=== PATIENT | male | born 1970 | race Caucasian/White ===

== ENCOUNTER → 2017-05-13 | Outpatient (CLI) | payer OTHER ==
[~2017-05-13] MED LIST: ARMOUR; ASPI-983 PO; HYDR25TA4 PO; LEVO750T9 PO; NF-TELM20T PO; PRILOSEC; THYR120T2 PO; VLS80C
--- NOTE | 2017-05-13 16:37 | Diagnostic Imaging Report ---
PA view of the chest. INDICATION: Shortness of breath. FINDINGS: There is a mild bilateral perihilar atelectasis. There is a right basilar opacity which may relate to atelectasis and a small right effusion. The heart size is mildly enlarged. The mediastinum and ajit appear unremarkable. IMPRESSION: Mild cardiomegaly. There is a right basilar opacity favored to relate to atelectasis and a small pleural effusion. Dictated by: Dictated on workstation # [id number]
== END ==
LOC: RAD 15:18
DX: R07.9 Chest pain, unspecified (principal); R92.8 Other abnormal and inconclusive findings on diagnostic imaging of breast; I10 Essential (primary) hypertension; E03.9 Hypothyroidism, unspecified; K21.9 Gastro-esophageal reflux disease without esophagitis; R47.02 Dysphasia; R60.9 Edema, unspecified
CPT/HCPCS: 71010

== ENCOUNTER 2017-06-14 10:55 | Day surgery (SDC) | payer OTHER ==
[2017-06-14] VITALS (7 sets, daily range): BP systolic 102–108; BP diastolic 66–91
[~2017-06-14] VITALS: Ht 177.8 cm; Wt 94.8 kg
[~2017-06-14 10:55] MED LIST changes: +AMIO200T2 PO; +APIX5TAB PO; +ATOR10TA66 PO; +FURO-124 PO; +LISI10TA2 PO; +METO50TA15 PO; +MULT-35 PO; +NS IV 1000 ML 1,000 ML ONE; +OMEP20CA12 PO; +POTA20TA8 PO; +POTA99TA21 PO; +TELM40TA3 PO; +TESTOSTERONE TROCHE SL
[2017-06-14] MEDS ORDERED: NS IV 1000 ML 1,000 ML IV SCH (11:07)
[2017-06-14] MEDS ORDERED: METO50TA15 PO (11:21)
[2017-06-14] MEDS ORDERED: AMIO200T2 PO (11:28)
[2017-06-14 11:54] LABS: ALANINE AMINOTRANSFERASE 47 U/L (0-55); ALBUMIN 4.8 GM/DL (3.2-4.5); ANION GAP 11 MMOL/L (5-14); ASPARTATE AMINO TRANSFERASE 24 U/L (5-34); BILIRUBIN,TOTAL 3.4 MG/DL (0.1-1.0); BLOOD UREA NITROGEN 15 MG/DL (7-18); BUN/CREATININE RATIO 17; CALCIUM 9.8 MG/DL (8.5-10.1); CARBON DIOXIDE 29 MMOL/L (21-32); CHLORIDE 100 MMOL/L (98-107); CREATININE SERUM 0.87 MG/DL (0.60-1.30); GFR ESTIMATED > 60; GLUCOSE 96 MG/DL (70-105); POTASSIUM 4.3 MMOL/L (3.6-5.0); SODIUM 140 MMOL/L (135-145); TOTAL PROTEIN 7.9 GM/DL (6.4-8.2)
[2017-06-14] MEDS ORDERED: proPOfol 200 MG/20 ML (DIPRIVAN) VIAL IV ONE (11:55)
[2017-06-14] MEDS ORDERED: MIDAZOLAM 2 MG/2 ML (VERSED) VIAL ONE (11:55)
[2017-06-14] MEDS ORDERED: fentaNYL INJECTION 100 MCG/2 ML AMP ONE (11:55)
--- NOTE | 2017-06-14 12:41 | Cardiac Procedure Note-CS/ASA ---
Pre-Procedure Note Pre-Op Procedure Note H&P Reviewed The H&P was reviewed, patient examined and no changes noted. Date H&P Reviewed: Jun 14, 2017 Time H&P Reviewed: 12:41 Conscious Sedation Pre-Proced Time Reviewed: 12:41 ASA Class: 3 Airway Mallampati Classification: ([place] appropriate class) I. II. III, IV Lungs Heart ASA score ASA 1: a normal healthy patient ASA 2: a patient with a mild systemic disease (mid diabetes, controlled hypertension, obesity ASA 3: a patient with a severe systemic disease that limits activity (angina , COPD, prior Myocardial infarction) ASA 4: a patient with an incapacitating disease that is a constant threat to life (CHF, renal failure) ASA 5: a moribund patient not expected to survive 24 hrs. (ruptured aneurysm) ASA 6: a declared brain patient whose organs are being harvested. For emergent operations, add the letter E after the classification Grade 1 Sedation Plan: Analgesia, Amnesia, Plan communicated to team members, Discussed options with patient/fam, Discussed risks with patient/fam Note The patient is an appropriate candidate to undergo the planned procedure, sedation, and anesthesia. The patient immediately re-assessed prior to indication. Clay TRUJILLO MD Jun 14, 2017 12:41 pm
--- NOTE | 2017-06-14 12:57 | Cardiology Post Procedure Note ---
Post-Procedure Note Physician (s)/Mandarin Chinese Teacher (s) Physician Clay TRUJILLO MD Pre-Procedure Diagnosis Pre-Procedure Diagnosis: new onset cardiomyopathy, atrial fibrillation Post-Procedure Note Procedure Start Date: Jun 14, 2017 Procedure Start Time: 12:56 Name of Procedure: Direct Electrical External Cardioversion Findings/Procedure Note First shock unsuccessful. Second 200J shock successful in converting to sinus rhythm. Anesthesia Type: Conscious Sedation Estimated blood loss (mL): 0 Contrast Amount: 0 Post-Procedure Diagnosis Post-operative diagnosis: Successful cardioversion to sinus rhythm Clay TRUJILLO MD Jun 14, 2017 12:57 pm
--- NOTE | 2017-06-14 13:00 | Progress Note-Standard ---
Standard Progress Note Progress Notes/Assess & Plan Time Seen by Provider: 13:00 Final Diagnosis Consulted for sedation during cardioversion per Dr. Kirby. History obtained, monitors and supplies at bedside. Versed 2 mg IV, Propofol 40 mg IV, buddy well VSS. Report to RN care assumed. PIERRE DIAZ CRNA Jun 14, 2017 13:00
--- NOTE | 2017-06-14 23:07 | OPERATIVE REPORT ---
DATE OF SERVICE: 06/14/2017 DIRECT EXTERNAL CARDIOVERSION INDICATION: Atrial fibrillation with rapid ventricular rate. PREOPERATIVE DIAGNOSIS: Atrial fibrillation with rapid ventricular rate. POSTOPERATIVE DIAGNOSIS: Sinus rhythm. HISTORYOF PRESENT ILLNESS: The patient is a 46-year-old gentleman with new onset cardiomyopathy. He was found to be in atrial fibrillation with rapid ventricular rate. Two previous cardioversions were done, which converted to sinus rhythm for only a few hours before he went back into atrial fibrillation. He was started on amiodarone. He has been taking amiodarone for the last 7 to 10 days. Repeat cardioversion was recommended on p.o. therapy with amiodarone. PROCEDURE IN DETAIL: The patient was brought to the [facility] after informed consent was taken. All the risks and complications were explained in detail including the risk of stroke. The first shock, which was a 200-joule synchronized did not convert the patient to sinus rhythm. The second shock of 200-joule synchronized converted the patient to sinus rhythm. Propofol was given by anesthesia services. The patient tolerated procedure well, did not have any complication. IMPRESSION AND CONCLUSION: 1. Successful cardioversion to sinus rhythm. 2. Continue amiodarone and Eliquis therapy. 3. The patient may be a candidate for atrial fibrillation ablation in the near future. Job ID: [id number] DocumentID: [id number] Dictated Date: 06/14/2017 12:59:56 General Duty Nurse Date: 06/14/2017 22:35:01 Dictated By: STANISLAV TRUJILLO MD
== END 2017-06-14 14:16 | disposition home or self-care (01) ==
LOC: CATH 10:55
PROVIDERS: ATTEND Internal Medicine Interventional Cardiology
DX: I48.0 Paroxysmal atrial fibrillation (principal); I42.0 Dilated cardiomyopathy; I10 Essential (primary) hypertension; F17.210 Nicotine dependence, cigarettes, uncomplicated; Z82.49 Family history of ischemic heart disease and other diseases of the circulatory system; Z79.01 Long term (current) use of anticoagulants
CPT/HCPCS: 36415; 80053; 87081; 92960; 93005

== ENCOUNTER → 2017-09-08 | Outpatient (CLI) | payer OTHER ==
[~2017-09-08] MED LIST changes: -NS IV 1000 ML 1,000 ML ONE
== END ==
LOC: CARD 08:44
PROVIDERS: ATTEND Internal Medicine Interventional Cardiology
DX: I48.91 Unspecified atrial fibrillation (principal); E78.5 Hyperlipidemia, unspecified; I42.0 Dilated cardiomyopathy; E66.9 Obesity, unspecified
CPT/HCPCS: 93306

== ENCOUNTER → 2017-09-30 | Day surgery (SDC) | payer OTHER ==
[~2017-09-30] VITALS: Ht 177.8 cm; Wt 96.6 kg
[~2017-09-30] MED LIST changes: +BACITRACIN INJECTION 50,000 UNIT, SODIUM CHLORIDE 0.9% IRRIGATIO 500 ML IR ONE; +CLIN300C11 PO; +DIGO250T PO; +HEParin (CATH LAB) 0 ML IV ONE; +METO100T12 PO; +NS (IVPB) 250 ML ONE; +NS IV 1000 ML 1,000 ML IV ONE; +OMEP20TA7 PO; +VANCOMYCIN 1000 MG/VIAL ONE; +VANCOMYCIN INJECTION 1,000 MG in NS (IVPB) 250 ML IV ONE
--- OUTSIDE RECORDS SUMMARY | 2017-09-30 08:22 | XMS REPORT | Continuity of Care Document ---
Author Author [facility] Organization [facility] Address Unknown Phone Unavailable Allergies Active Description Code Type Severity Reaction Onset Reported/Identified Relationship to Patient Clinical Status Yes Penicillins [id number] Drug Allergy Unknown "LONG AGO DON'T 09/17/2006 Medications There is no data. Problems Date Dx Coded Attending Type Code Diagnosis Diagnosed By 03/05/2015 ROSARIO COLLADO, IRAJ Gonzalez Ot 401.9 HYPERTENSION NOS 03/05/2015 ROSARIO COLLADO, IRAJ Gonzalez Ot 486 PNEUMONIA, ORGANISM NOS 03/05/2015 ROSARIO COLLADO, IRAJ Gonzalez Ot 786.50 CHEST PAIN NOS 03/05/2015 ROSARIO COLLADO, IRAJ Gonzalez Ot V58.69 OTH MED,LT,CURRENT USE 05/26/2017 ROBERTO ASKEW MD Ot E03.9 HYPOTHYROIDISM, UNSPECIFIED 05/26/2017 ROBERTO ASKEW MD Ot I10 ESSENTIAL (PRIMARY) HYPERTENSION 05/26/2017 ROBERTO ASKEW MD Ot K21.9 GASTRO-ESOPHAGEAL REFLUX DISEASE WITHOUT 05/26/2017 ROBERTO ASKEW MD Ot R07.9 CHEST PAIN, UNSPECIFIED 05/26/2017 ROBERTO ASKEW MD Ot R47.02 DYSPHASIA 05/26/2017 ROBERTO ASKEW MD Ot R60.9 EDEMA, UNSPECIFIED 05/26/2017 ROBERTO ASKEW MD Ot R92.8 OTH ABN AND INCONCLUSIVE FINDINGS ON DX 05/27/2017 ROBERTO ASKEW MD Ot E03.9 HYPOTHYROIDISM, UNSPECIFIED 05/27/2017 ROBERTO ASKEW MD Ot I10 ESSENTIAL (PRIMARY) HYPERTENSION 05/27/2017 ROBERTO ASKEW MD Ot K21.9 GASTRO-ESOPHAGEAL REFLUX DISEASE WITHOUT 05/27/2017 ROBERTO ASKEW MD Ot R07.9 CHEST PAIN, UNSPECIFIED 05/27/2017 ROBERTO ASKEW MD Ot R47.02 DYSPHASIA 05/27/2017 ROBERTO ASKEW MD Ot R60.9 EDEMA, UNSPECIFIED 05/27/2017 ROBERTO ASKEW MD Ot R92.8 OTH ABN AND INCONCLUSIVE FINDINGS ON DX 06/03/2017 ROBERTO ASKEW MD Ot E03.9 HYPOTHYROIDISM, UNSPECIFIED 06/03/2017 ROBERTO ASKEW MD R Ot I10 ESSENTIAL (PRIMARY) HYPERTENSION 06/03/2017 ROBERTO ASKEW MD Ot K21.9 GASTRO-ESOPHAGEAL REFLUX DISEASE WITHOUT 06/03/2017 ROBERTO ASKEW MD Ot R07.9 CHEST PAIN, UNSPECIFIED 06/03/2017 ROBERTO ASKEW MD Ot R47.02 DYSPHASIA 06/03/2017 ROBERTO ASKEW MD Ot R60.9 EDEMA, UNSPECIFIED 06/03/2017 ROBERTO ASKEW MD Ot R92.8 OTH ABN AND INCONCLUSIVE FINDINGS ON DX 06/03/2017 ROBERTO ASKEW MD Ot E03.9 HYPOTHYROIDISM, UNSPECIFIED 06/03/2017 ROBERTO ASKEW MD Ot I10 ESSENTIAL (PRIMARY) HYPERTENSION 06/03/2017 ROBERTO ASKEW MD Ot K21.9 GASTRO-ESOPHAGEAL REFLUX DISEASE WITHOUT 06/03/2017 ROBERTO ASKEW MD Ot R07.9 CHEST PAIN, UNSPECIFIED 06/03/2017 ROBERTO ASKEW MD Ot R47.02 DYSPHASIA 06/03/2017 ROBERTO ASKEW MD Ot R60.9 EDEMA, UNSPECIFIED 06/03/2017 ROBERTO ASKEW MD Ot R92.8 OTH ABN AND INCONCLUSIVE FINDINGS ON DX 06/05/2017 ISAMAR HATFIELD MD Ot E03.9 HYPOTHYROIDISM, UNSPECIFIED 06/05/2017 ISAMAR HATFIELD MD Ot E80.6 OTHER DISORDERS OF BILIRUBIN METABOLISM 06/05/2017 ISAMAR HATFIELD MD Ot F17.210 NICOTINE DEPENDENCE, CIGARETTES, UNCOMPL 06/05/2017 ISAMAR HATFIELD MD Ot I11.0 HYPERTENSIVE HEART DISEASE WITH HEART FA 06/05/2017 ISAMAR HATFIELD MD, Ot I25.10 ATHSCL HEART DISEASE OF [place] CORONARY 06/05/2017 ISAMAR HATFIELD MD Ot I42.9 CARDIOMYOPATHY, UNSPECIFIED 06/05/2017 LIU MD, ISAMAR M Ot I48.91 UNSPECIFIED ATRIAL FIBRILLATION 06/05/2017 ISAMAR HATFIELD MD Ot I50.21 ACUTE SYSTOLIC (CONGESTIVE) HEART FAILUR 06/05/2017 ISAMAR HATFIELD MD Ot K21.9 GASTRO-ESOPHAGEAL REFLUX DISEASE WITHOUT 06/06/2017 ISAMAR HATFIELD MD Ot E03.9 HYPOTHYROIDISM, UNSPECIFIED 06/06/2017 ISAMAR HATFIELD MD Ot E80.6 OTHER DISORDERS OF BILIRUBIN METABOLISM 06/06/2017 ISAMAR HATFIELD MD Ot F17.210 NICOTINE DEPENDENCE, CIGARETTES, UNCOMPL 06/06/2017 ISAMAR HATFIELD MD Ot I11.0 HYPERTENSIVE HEART DISEASE WITH HEART FA 06/06/2017 ISAMAR HATFIELD MD Ot I25.10 ATHSCL HEART DISEASE OF [place] CORONARY 06/06/2017 ISAMAR HATFIELD MD Ot I42.9 CARDIOMYOPATHY, UNSPECIFIED 06/06/2017 ISAMAR HATFIELD MD Ot I48.91 UNSPECIFIED ATRIAL FIBRILLATION 06/06/2017 ISAMAR HATFIELD MD Ot I50.21 ACUTE SYSTOLIC (CONGESTIVE) HEART FAILUR 06/06/2017 ISAMAR HATFIELD MD Ot K21.9 GASTRO-ESOPHAGEAL REFLUX DISEASE WITHOUT 06/06/2017 ISAMAR HATFIELD MD Ot E03.9 HYPOTHYROIDISM, UNSPECIFIED 06/06/2017 ISAMAR HATFIELD MD Ot E78.00 PURE HYPERCHOLESTEROLEMIA, UNSPECIFIED 06/06/2017 ISAMAR HATFIELD MD Ot E80.6 OTHER DISORDERS OF BILIRUBIN METABOLISM 06/06/2017 ISAMAR HATFIELD MD Ot F17.210 NICOTINE DEPENDENCE, CIGARETTES, UNCOMPL 06/06/2017 ISAMAR HATFIELD MD Ot I11.0 HYPERTENSIVE HEART DISEASE WITH HEART FA 06/06/2017 ISAMAR HATFIELD MD Ot I25.10 ATHSCL HEART DISEASE OF [place] CORONARY 06/06/2017 ISAMAR HATFIELD MD Ot I42.9 CARDIOMYOPATHY, UNSPECIFIED 06/06/2017 ISAMAR HATFIELD MD Ot I48.91 UNSPECIFIED ATRIAL FIBRILLATION 06/06/2017 ISAMAR HATFIELD MD Ot I50.21 ACUTE SYSTOLIC (CONGESTIVE) HEART FAILUR 06/06/2017 ISAMAR HATFIELD MD Ot K21.9 GASTRO-ESOPHAGEAL REFLUX DISEASE WITHOUT 06/14/2017 CASSANDRA COLLADO, Clay LANG Ot F17.210 NICOTINE DEPENDENCE, CIGARETTES, UNCOMPL 06/14/2017 Clay TRUJILLO MD Ot I10 ESSENTIAL (PRIMARY) HYPERTENSION 06/14/2017 Clay TRUJILLO MD Ot I42.0 DILATED CARDIOMYOPATHY 06/14/2017 CASSANDRA COLLADO, Clay LANG Ot I48.0 PAROXYSMAL ATRIAL FIBRILLATION 06/14/2017 Clay TRUJILLO MD Ot Z79.01 ASSISTED (CURRENT) USE OF ANTICOAGULANT 06/14/2017 Clay TRUJILLO MD Ot Z82.49 FAMILY HX OF ISCHEM HEART DIS AND OTH DI 06/16/2017 ROBERTO ASKEW MD Ot E03.9 HYPOTHYROIDISM, UNSPECIFIED 06/16/2017 ROBERTO ASKEW MD Ot I10 ESSENTIAL (PRIMARY) HYPERTENSION 06/16/2017 ROBERTO ASKEW MD Ot K21.9 GASTRO-ESOPHAGEAL REFLUX DISEASE WITHOUT 06/16/2017 ROBERTO ASKEW MD R Ot R07.9 CHEST PAIN, UNSPECIFIED 06/16/2017 ROBERTO ASKEW MD Ot R47.02 DYSPHASIA 06/16/2017 ROBERTO ASKEW MD Ot R60.9 EDEMA, UNSPECIFIED 07/05/2017 Clay TRUJILLO MD Ot F17.210 NICOTINE DEPENDENCE, CIGARETTES, UNCOMPL 07/05/2017 Clay TRUJILLO MD Ot I10 ESSENTIAL (PRIMARY) HYPERTENSION 07/05/2017 Clay TRUJILLO MD Ot I42.0 DILATED CARDIOMYOPATHY 07/05/2017 Clay TRUJILLO MD Ot I48.0 PAROXYSMAL ATRIAL FIBRILLATION 07/05/2017 Clay TRUJILLO MD Ot Z79.01 ASSISTED (CURRENT) USE OF ANTICOAGULANT 07/05/2017 Clay TRUJILLO MD Ot Z82.49 FAMILY HX OF ISCHEM HEART DIS AND OTH DI 09/06/2017 ROBERTO ASKEW MD Ot E03.9 HYPOTHYROIDISM, UNSPECIFIED 09/06/2017 ROBERTO ASKEW MD R Ot I10 ESSENTIAL (PRIMARY) HYPERTENSION 09/06/2017 ROBERTO ASKEW MD Ot K21.9 GASTRO-ESOPHAGEAL REFLUX DISEASE WITHOUT 09/06/2017 JAMILAH COLLADO, ROBERTO R Ot R07.9 CHEST PAIN, UNSPECIFIED 09/06/2017 JAMILAH COLLADO, ROBERTO R Ot R47.02 DYSPHASIA 09/06/2017 JAMILAH COLLADO, ROBERTO R Ot R60.9 EDEMA, UNSPECIFIED 09/06/2017 JAMILAH COLLADO, ROBERTO R Ot E03.9 HYPOTHYROIDISM, UNSPECIFIED 09/06/2017 JAMILAH COLLADO, ROBERTO R Ot I10 ESSENTIAL (PRIMARY) HYPERTENSION 09/06/2017 JAMILAH COLLADO, ROBERTO R Ot K21.9 GASTRO-ESOPHAGEAL REFLUX DISEASE WITHOUT 09/06/2017 JAMILAH COLLADO, ROBERTO R Ot R07.9 CHEST PAIN, UNSPECIFIED 09/06/2017 JAMILAH COLLADO, ROBERTO R Ot R47.02 DYSPHASIA 09/06/2017 JAMILAH COLLADO, ROBERTO R Ot R60.9 EDEMA, UNSPECIFIED 09/06/2017 JAMILAH COLLADO, ROBERTO R Ot R92.8 OTH ABN AND INCONCLUSIVE FINDINGS ON DX 09/06/2017 ROBERTO ASKEW MD R Ot E03.9 HYPOTHYROIDISM, UNSPECIFIED 09/06/2017 JAMILAH COLLADO, ROBERTO R Ot I10 ESSENTIAL (PRIMARY) HYPERTENSION 09/06/2017 JAMILAH COLLADO, ROBERTO R Ot K21.9 GASTRO-ESOPHAGEAL REFLUX DISEASE WITHOUT 09/06/2017 JAMILAH COLLADO, ROBERTO R Ot R07.9 CHEST PAIN, UNSPECIFIED 09/06/2017 JAMILAH COLLADO, ROBERTO R Ot R47.02 DYSPHASIA 09/06/2017 JAMILAH COLLADO, ROBERTO R Ot R60.9 EDEMA, UNSPECIFIED 09/06/2017 JAMILAH COLLADO, ROBERTO R Ot E03.9 HYPOTHYROIDISM, UNSPECIFIED 09/06/2017 JAMILAH COLLADO, ROBERTO R Ot I10 ESSENTIAL (PRIMARY) HYPERTENSION 09/06/2017 JAMILAH COLLADO, ROBERTO R Ot K21.9 GASTRO-ESOPHAGEAL REFLUX DISEASE WITHOUT 09/06/2017 JAMILAH COLLADO, ROBERTO R Ot R07.9 CHEST PAIN, UNSPECIFIED 09/06/2017 JAMILAH COLLADO, ROBERTO R Ot R47.02 DYSPHASIA 09/06/2017 JAMILAH COLLADO, ROBERTO R Ot R60.9 EDEMA, UNSPECIFIED 09/06/2017 JAMILAH COLLADO, ROBERTO R Ot R92.8 OTH ABN AND INCONCLUSIVE FINDINGS ON DX 09/06/2017 ROBERTO ASKEW MD R Ot E03.9 HYPOTHYROIDISM, UNSPECIFIED 09/06/2017 JAMILAH COLLADO, ROBERTO R Ot I10 ESSENTIAL (PRIMARY) HYPERTENSION 09/06/2017 JAMILAH COLLADO, ROBERTO R Ot K21.9 GASTRO-ESOPHAGEAL REFLUX DISEASE WITHOUT 09/06/2017 JAMILAH COLLADO, ROBERTO R Ot R07.9 CHEST PAIN, UNSPECIFIED 09/06/2017 JAMILAH COLLADO, ROBERTO R Ot R47.02 DYSPHASIA 09/06/2017 JAMILAH COLLADO, ROBERTO R Ot R60.9 EDEMA, UNSPECIFIED 09/06/2017 JAMILAH COLLADO, ROBERTO R Ot E03.9 HYPOTHYROIDISM, UNSPECIFIED 09/06/2017 JAMILAH COLLADO, ROBERTO R Ot I10 ESSENTIAL (PRIMARY) HYPERTENSION 09/06/2017 JAMILAH COLLADO, ROBERTO R Ot K21.9 GASTRO-ESOPHAGEAL REFLUX DISEASE WITHOUT 09/06/2017 JAMILAH COLLADO, ROBERTO R Ot R07.9 CHEST PAIN, UNSPECIFIED 09/06/2017 JAMILAH COLLADO, ROBERTO R Ot R47.02 DYSPHASIA 09/06/2017 JAMILAH COLLADO, ROBERTO R Ot R60.9 EDEMA, UNSPECIFIED 09/06/2017 JAMILAH COLLADO, ROBERTO R Ot R92.8 OTH ABN AND INCONCLUSIVE FINDINGS ON DX 09/06/2017 JAMILAH COLLADO, ROBERTO R Ot E03.9 HYPOTHYROIDISM, UNSPECIFIED 09/06/2017 JAMILAH COLLADO, ROBERTO R Ot I10 ESSENTIAL (PRIMARY) HYPERTENSION 09/06/2017 JAMILAH COLLADO, ROBERTO R Ot K21.9 GASTRO-ESOPHAGEAL REFLUX DISEASE WITHOUT 09/06/2017 JAMILAH COLLADO, ROBERTO R Ot R07.9 CHEST PAIN, UNSPECIFIED 09/06/2017 JAMILAH COLLADO, ROBERTO R Ot R47.02 DYSPHASIA 09/06/2017 JAMILAH COLLADO, ROBERTO R Ot R60.9 EDEMA, UNSPECIFIED 09/06/2017 JAMILAH COLLADO, ROBERTO R Ot E03.9 HYPOTHYROIDISM, UNSPECIFIED 09/06/2017 JAMILAH COLLADO, ROBERTO R Ot I10 ESSENTIAL (PRIMARY) HYPERTENSION 09/06/2017 JAMILAH COLLADO, ROBERTO R Ot K21.9 GASTRO-ESOPHAGEAL REFLUX DISEASE WITHOUT 09/06/2017 JAMILAH COLLADO, ROBERTO R Ot R07.9 CHEST PAIN, UNSPECIFIED 09/06/2017 JAMILAH COLLADO, ROBERTO R Ot R47.02 DYSPHASIA 09/06/2017 JAMILAH COLLADO, ROBERTO Rogers Ot R60.9 EDEMA, UNSPECIFIED 09/06/2017 JAMILAH COLLADO, ROBERTO Rogers Ot R92.8 OTH ABN AND INCONCLUSIVE FINDINGS ON DX 09/09/2017 CASSANDRA COLLADO, Clay LANG Ot E66.9 OBESITY, UNSPECIFIED 09/09/2017 CASSANDRA COLLADO, Clay LANG Ot E78.5 HYPERLIPIDEMIA, UNSPECIFIED 09/09/2017 CASASNDRA COLLADO, Clay LANG Ot I42.0 DILATED CARDIOMYOPATHY 09/09/2017 CASSANDRA COLLADO, Clay LANG Ot I48.91 UNSPECIFIED ATRIAL FIBRILLATION 09/22/2017 CASSANDRA COLLADO, Clay LANG Ot E66.9 OBESITY, UNSPECIFIED 09/22/2017 CASSANDRA COLLADO, Clay LANG Ot E78.5 HYPERLIPIDEMIA, UNSPECIFIED 09/22/2017 CASSANDRA COLLADO, Clay LANG Ot I42.0 DILATED CARDIOMYOPATHY 09/22/2017 CASSANDRA COLLADO, Clay LANG Ot I48.91 UNSPECIFIED ATRIAL FIBRILLATION Procedures Code Description Performed By Performed On [id number] MEASURE OF CARDIAC SAMPL PRESSURE, L H 06/04/2017 [id number] ORTHODOX OF CARDIAC RHYTHM, SINGLE 06/04/2017 [id number] FLUOROSCOPY OF MULT COR ART USING L OSM 06/04/2017 [id number] FLUOROSCOPY OF LEFT HEART USING LOW OSMO 06/04/2017 Results Test Result Range Complete blood count (CBC) with automated white blood cell (WBC) differential - 06/03/17 14:35 Blood leukocytes automated count (number/volume) 9.5 10*3/uL 4.3-11.0 Blood erythrocytes automated count (number/volume) 5.97 10*6/uL 4.35-5.85 Venous blood hemoglobin measurement (mass/volume) 17.0 g/dL 13.3-17.7 Blood hematocrit (volume fraction) 49 % 40-54 Automated erythrocyte mean corpuscular volume 81 [foz_us] 80-99 Automated erythrocyte mean corpuscular hemoglobin (mass per erythrocyte) 29 pg 25-34 Automated erythrocyte mean corpuscular hemoglobin concentration measurement ( mass/volume) 35 g/dL 32-36 Automated erythrocyte distribution width ratio 17.3 % 10.0-14.5 Automated blood platelet count (count/volume) 195 10*3/uL 130-400 Automated blood platelet mean volume measurement 11.8 [foz_us] 7.4-10.4 Automated blood neutrophils/100 leukocytes 71 % 42-75 Automated blood lymphocytes/100 leukocytes 18 % 12-44 Blood monocytes/100 leukocytes 11 % 0-12 Automated blood eosinophils/100 leukocytes 1 % 0-10 Automated blood basophils/100 leukocytes 0 % 0-10 Blood neutrophils automated count (number/volume) 6.7 10*3 1.8-7.8 Blood lymphocytes automated count (number/volume) 1.7 10*3 1.0-4.0 Blood monocytes automated count (number/volume) 1.1 10*3 0.0-1.0 Automated eosinophil count 0.1 10*3/uL 0.0-0.3 Automated blood basophil count (count/volume) 0.0 10*3/uL 0.0-0.1 PT panel in platelet poor plasma by coagulation assay - 06/03/17 14:35 Prothrombin time (PT) in platelet poor plasma by coagulation assay 16.0 s 12.2-14.7 INR in platelet poor plasma or blood by coagulation assay 1.3 0.8-1.4 Activated partial thromboplastin time (aPTT) in platelet poor plasma bycoagulation assay - 06/03/17 14:35 Activated partial thromboplastin time (aPTT) in platelet poor plasma bycoagulation assay 30 s 24-35 Comprehensive metabolic panel - 06/03/17 14:35 Serum or plasma sodium measurement (moles/volume) 134 mmol/L 135-145 Serum or plasma potassium measurement (moles/volume) 3.9 mmol/L 3.6-5.0 Serum or plasma chloride measurement (moles/volume) 93 mmol/L 98-107 Carbon dioxide 29 mmol/L 21-32 Serum or plasma anion gap determination (moles/volume) 12 mmol/L 5-14 Serum or plasma urea nitrogen measurement (mass/volume) 12 mg/dL 7-18 Serum or plasma creatinine measurement (mass/volume) 0.81 mg/dL 0.60-1.30 Serum or plasma urea nitrogen/creatinine mass ratio 15 NRG Serum or plasma creatinine measurement with calculation of estimated glomerular filtration rate > NRG Serum or plasma glucose measurement (mass/volume) 123 mg/dL 70-105 Serum or plasma calcium measurement (mass/volume) 9.4 mg/dL 8.5-10.1 Serum or plasma total bilirubin measurement (mass/volume) 4.7 mg/dL 0.1-1.0 Serum or plasma alkaline phosphatase measurement (enzymatic activity/volume) 175 U/L 40-136 Serum or plasma aspartate aminotransferase measurement (enzymatic activity/ volume) 24 U/L 5-34 Serum or plasma alanine aminotransferase measurement (enzymatic activity/volume ) 29 U/L 0-55 Serum or plasma protein measurement (mass/volume) 7.3 g/dL 6.4-8.2 Serum or plasma albumin measurement (mass/volume) 4.7 g/dL 3.2-4.5 Magnesium - 06/03/17 14:35 Magnesium 1.6 mg/dL 1.8-2.4 Serum or plasma troponin i.cardiac measurement (mass/volume) - 06/03/17 14:35 Serum or plasma troponin i.cardiac measurement (mass/volume) < ng/ mL <0.30 Myoglobin, serum - 06/03/17 14:35 Myoglobin, serum 50.1 ng/mL 10.0-92.0 THYROID STIMULATING HORMONE - 06/03/17 14:35 THYROID STIMULATING HORMONE 1.91 u[iU]/mL 0.35-4.94 Serum or plasma lithium measurement (moles/volume) - 06/03/17 14:35 BNP level 1218.3 pg/mL <100.0 Complete blood count (CBC) with automated white blood cell (WBC) differential - 06/04/17 05:00 Blood leukocytes automated count (number/volume) 6.8 10*3/uL 4.3-11.0 Blood erythrocytes automated count (number/volume) 5.35 10*6/uL 4.35-5.85 Venous blood hemoglobin measurement (mass/volume) 15.2 g/dL 13.3-17.7 Blood hematocrit (volume fraction) 44 % 40-54 Automated erythrocyte mean corpuscular volume 82 [foz_us] 80-99 Automated erythrocyte mean corpuscular hemoglobin (mass per erythrocyte) 28 pg 25-34 Automated erythrocyte mean corpuscular hemoglobin concentration measurement ( mass/volume) 35 g/dL 32-36 Automated erythrocyte distribution width ratio 16.3 % 10.0-14.5 Automated blood platelet count (count/volume) 174 10*3/uL 130-400 Automated blood platelet mean volume measurement 11.8 [foz_us] 7.4-10.4 Automated blood neutrophils/100 leukocytes 62 % 42-75 Automated blood lymphocytes/100 leukocytes 25 % 12-44 Blood monocytes/100 leukocytes 11 % 0-12 Automated blood eosinophils/100 leukocytes 1 % 0-10 Automated blood basophils/100 leukocytes 0 % 0-10 Blood neutrophils automated count (number/volume) 4.2 10*3 1.8-7.8 Blood lymphocytes automated count (number/volume) 1.7 10*3 1.0-4.0 Blood monocytes automated count (number/volume) 0.8 10*3 0.0-1.0 Automated eosinophil count 0.1 10*3/uL 0.0-0.3 Automated blood basophil count (count/volume) 0.0 10*3/uL 0.0-0.1 PT panel in platelet poor plasma by coagulation assay - 06/04/17 05:00 Prothrombin time (PT) in platelet poor plasma by coagulation assay 15.5 s 12.2-14.7 INR in platelet poor plasma or blood by coagulation assay 1.2 0.8-1.4 Whole blood basic metabolic panel - 06/04/17 05:00 Serum or plasma sodium measurement (moles/volume) 136 mmol/L 135-145 Serum or plasma potassium measurement (moles/volume) 3.6 mmol/L 3.6-5.0 Serum or plasma chloride measurement (moles/volume) 100 mmol/L 98-107 Carbon dioxide 25 mmol/L 21-32 Serum or plasma anion gap determination (moles/volume) 11 mmol/L 5-14 Serum or plasma urea nitrogen measurement (mass/volume) 9 mg/dL 7-18 Serum or plasma creatinine measurement (mass/volume) 0.65 mg/dL 0.60-1.30 Serum or plasma urea nitrogen/creatinine mass ratio 14 NRG Serum or plasma creatinine measurement with calculation of estimated glomerular filtration rate > NRG Serum or plasma glucose measurement (mass/volume) 98 mg/dL 70-105 Serum or plasma calcium measurement (mass/volume) 8.7 mg/dL 8.5-10.1 Magnesium - 06/04/17 05:00 Magnesium 1.8 mg/dL 1.8-2.4 Lipid 1996 panel - 06/04/17 05:00 Serum or plasma triglyceride measurement (mass/volume) 44 mg/dL <150 Serum or plasma cholesterol measurement (mass/volume) 102 mg/dL < 200 Serum or plasma cholesterol in HDL measurement (mass/volume) 36 mg/ dL 40-60 Cholesterol in LDL [mass/volume] in serum or plasma by direct assay 64 mg/dL 1-129 Serum or plasma cholesterol in VLDL measurement (mass/volume) 9 mg/ dL 5-40 Serum or plasma conjugated bilirubin+indirect measurement (mass/volume) - 06/04 05:00 Serum or plasma total bilirubin measurement (mass/volume) 4.0 mg/dL 0.1-1.0 Bilirubin direct 2.2 mg/dL 0.0-0.3 Serum or plasma indirect bilirubin measurement (mass/volume) 1.8 mg/ dL NR Whole blood basic metabolic panel - 06/04/17 16:40 Serum or plasma sodium measurement (moles/volume) 137 mmol/L 135-145 Serum or plasma potassium measurement (moles/volume) 3.9 mmol/L 3.6-5.0 Serum or plasma chloride measurement (moles/volume) 95 mmol/L 98-107 Carbon dioxide 29 mmol/L 21-32 Serum or plasma anion gap determination (moles/volume) 13 mmol/L 5-14 Serum or plasma urea nitrogen measurement (mass/volume) 12 mg/dL 7-18 Serum or plasma creatinine measurement (mass/volume) 0.97 mg/dL 0.60-1.30 Serum or plasma urea nitrogen/creatinine mass ratio 12 NRG Serum or plasma creatinine measurement with calculation of estimated glomerular filtration rate > NRG Serum or plasma glucose measurement (mass/volume) 197 mg/dL 70-105 Serum or plasma calcium measurement (mass/volume) 9.3 mg/dL 8.5-10.1 Complete blood count (CBC) with automated white blood cell (WBC) differential - 06/05/17 04:03 Blood leukocytes automated count (number/volume) 8.7 10*3/uL 4.3-11.0 Blood erythrocytes automated count (number/volume) 5.53 10*6/uL 4.35-5.85 Venous blood hemoglobin measurement (mass/volume) 15.7 g/dL 13.3-17.7 Blood hematocrit (volume fraction) 45 % 40-54 Automated erythrocyte mean corpuscular volume 82 [foz_us] 80-99 Automated erythrocyte mean corpuscular hemoglobin (mass per erythrocyte) 28 pg 25-34 Automated erythrocyte mean corpuscular hemoglobin concentration measurement ( mass/volume) 35 g/dL 32-36 Automated erythrocyte distribution width ratio 16.7 % 10.0-14.5 Automated blood platelet count (count/volume) 170 10*3/uL 130-400 Automated blood platelet mean volume measurement 11.5 [foz_us] 7.4-10.4 Automated blood neutrophils/100 leukocytes 72 % 42-75 Automated blood lymphocytes/100 leukocytes 18 % 12-44 Blood monocytes/100 leukocytes 10 % 0-12 Automated blood eosinophils/100 leukocytes 1 % 0-10 Automated blood basophils/100 leukocytes 0 % 0-10 Blood neutrophils automated count (number/volume) 6.2 10*3 1.8-7.8 Blood lymphocytes automated count (number/volume) 1.6 10*3 1.0-4.0 Blood monocytes automated count (number/volume) 0.8 10*3 0.0-1.0 Automated eosinophil count 0.1 10*3/uL 0.0-0.3 Automated blood basophil count (count/volume) 0.0 10*3/uL 0.0-0.1 Whole blood basic metabolic panel - 06/05/17 04:03 Serum or plasma sodium measurement (moles/volume) 136 mmol/L 135-145 Serum or plasma potassium measurement (moles/volume) 3.7 mmol/L 3.6-5.0 Serum or plasma chloride measurement (moles/volume) 96 mmol/L 98-107 Carbon dioxide 25 mmol/L 21-32 Serum or plasma anion gap determination (moles/volume) 15 mmol/L 5-14 Serum or plasma urea nitrogen measurement (mass/volume) 15 mg/dL 7-18 Serum or plasma creatinine measurement (mass/volume) 0.79 mg/dL 0.60-1.30 Serum or plasma urea nitrogen/creatinine mass ratio 19 NRG Serum or plasma creatinine measurement with calculation of estimated glomerular filtration rate > NRG Serum or plasma glucose measurement (mass/volume) 107 mg/dL 70-105 Serum or plasma calcium measurement (mass/volume) 8.8 mg/dL 8.5-10.1 Magnesium - 06/05/17 04:03 Magnesium 1.9 mg/dL 1.8-2.4 Complete blood count (CBC) with automated white blood cell (WBC) differential - 06/06/17 04:04 Blood leukocytes automated count (number/volume) 7.4 10*3/uL 4.3-11.0 Blood erythrocytes automated count (number/volume) 5.49 10*6/uL 4.35-5.85 Venous blood hemoglobin measurement (mass/volume) 15.6 g/dL 13.3-17.7 Blood hematocrit (volume fraction) 45 % 40-54 Automated erythrocyte mean corpuscular volume 82 [foz_us] 80-99 Automated erythrocyte mean corpuscular hemoglobin (mass per erythrocyte) 28 pg 25-34 Automated erythrocyte mean corpuscular hemoglobin concentration measurement ( mass/volume) 35 g/dL 32-36 Automated erythrocyte distribution width ratio 16.9 % 10.0-14.5 Automated blood platelet count (count/volume) 157 10*3/uL 130-400 Automated blood platelet mean volume measurement 11.1 [foz_us] 7.4-10.4 Automated blood neutrophils/100 leukocytes 63 % 42-75 Automated blood lymphocytes/100 leukocytes 24 % 12-44 Blood monocytes/100 leukocytes 11 % 0-12 Automated blood eosinophils/100 leukocytes 2 % 0-10 Automated blood basophils/100 leukocytes 0 % 0-10 Blood neutrophils automated count (number/volume) 4.7 10*3 1.8-7.8 Blood lymphocytes automated count (number/volume) 1.8 10*3 1.0-4.0 Blood monocytes automated count (number/volume) 0.9 10*3 0.0-1.0 Automated eosinophil count 0.1 10*3/uL 0.0-0.3 Automated blood basophil count (count/volume) 0.0 10*3/uL 0.0-0.1 Whole blood basic metabolic panel - 06/06/17 04:04 Serum or plasma sodium measurement (moles/volume) 137 mmol/L 135-145 Serum or plasma potassium measurement (moles/volume) 3.8 mmol/L 3.6-5.0 Serum or plasma chloride measurement (moles/volume) 100 mmol/L 98-107 Carbon dioxide 26 mmol/L 21-32 Serum or plasma anion gap determination (moles/volume) 11 mmol/L 5-14 Serum or plasma urea nitrogen measurement (mass/volume) 18 mg/dL 7-18 Serum or plasma creatinine measurement (mass/volume) 0.74 mg/dL 0.60-1.30 Serum or plasma urea nitrogen/creatinine mass ratio 24 NRG Serum or plasma creatinine measurement with calculation of estimated glomerular filtration rate > NRG Serum or plasma glucose measurement (mass/volume) 107 mg/dL 70-105 Serum or plasma calcium measurement (mass/volume) 8.6 mg/dL 8.5-10.1 Magnesium - 06/06/17 04:04 Magnesium 1.6 mg/dL 1.8-2.4 Comprehensive metabolic panel - 06/14/17 11:26 Serum or plasma sodium measurement (moles/volume) 140 mmol/L 135-145 Serum or plasma potassium measurement (moles/volume) 4.3 mmol/L 3.6-5.0 Serum or plasma chloride measurement (moles/volume) 100 mmol/L 98-107 Carbon dioxide 29 mmol/L 21-32 Serum or plasma anion gap determination (moles/volume) 11 mmol/L 5-14 Serum or plasma urea nitrogen measurement (mass/volume) 15 mg/dL 7-18 Serum or plasma creatinine measurement (mass/volume) 0.87 mg/dL 0.60-1.30 Serum or plasma urea nitrogen/creatinine mass ratio 17 NRG Serum or plasma creatinine measurement with calculation of estimated glomerular filtration rate > NRG Serum or plasma glucose measurement (mass/volume) 96 mg/dL 70-105 Serum or plasma calcium measurement (mass/volume) 9.8 mg/dL 8.5-10.1 Serum or plasma total bilirubin measurement (mass/volume) 3.4 mg/dL 0.1-1.0 Serum or plasma alkaline phosphatase measurement (enzymatic activity/volume) 161 U/L 40-136 Serum or plasma aspartate aminotransferase measurement (enzymatic activity/ volume) 24 U/L 5-34 Serum or plasma alanine aminotransferase measurement (enzymatic activity/volume ) 47 U/L 0-55 Serum or plasma protein measurement (mass/volume) 7.9 g/dL 6.4-8.2 Serum or plasma albumin measurement (mass/volume) 4.8 g/dL 3.2-4.5 Methicillin resistant Staphylococcus aureus (MRSA) screening culture - 11:26 Methicillin resistant Staphylococcus aureus (MRSA) screening culture NEG NRG Encounters ACCT No. Visit Date/Time Discharge Status Pt. Type Provider Facility Loc./Unit Complaint [id number] 09/08/2017 08:44:00 09/08/2017 23:59:59 CLS Outpatient Clay TRUJILLO MD [facility] CARD I48.91 AFIB [id number] 06/14/2017 10:55:00 06/14/2017 14:16:00 DIS Outpatient Clay TRUJILLO MD [facility] CATH AFIB [id number] 06/03/2017 15:42:00 06/06/2017 13:00:00 DIS Inpatient ISAMAR HATFIELD MD [facility] ICU AFIB RVR [id number] 06/03/2017 13:47:00 06/03/2017 23:59:59 CLS Outpatient ROBERTO ASKEW MD [facility] RAD I10 E03.9 [id number] 05/13/2017 15:18:00 05/13/2017 23:59:59 CLS Outpatient ROBERTO ASKEW MD [facility] RAD I10 E03.9 R60.9 K21.9 R47.02 R07.9 [id number] 05/05/2017 11:40:00 05/05/2017 23:59:59 CLS Preadmit MATILDE BOBO DO S [facility] RAD BILATERAL BREAST ASSYMETRY [id number] 03/05/2015 10:41:00 03/05/2015 12:50:00 DIS Emergency IRAJ PONCE MD [facility] ER CHEST PAIN [id number] 09/30/2017 10:30:00 PEN Preadmit Clay TRUJILLO MD [facility] CATH CARDIOMYOPATHY
[2017-09-30 08:37] VITALS: BP 106/76
== END | disposition home or self-care (01) ==
LOC: CATH 08:17
PROVIDERS: ATTEND Internal Medicine Interventional Cardiology
DX: I48.0 Paroxysmal atrial fibrillation (principal); I42.0 Dilated cardiomyopathy

== ENCOUNTER 2017-10-07 08:03 | Day surgery (SDC) | payer OTHER ==
[~2017-10-07] VITALS: Ht 177.8 cm; Wt 97.5 kg
[2017-10-07] VITALS (28 sets, daily range): BP systolic 77–106; BP diastolic 47–79
[~2017-10-07 08:03] MED LIST changes: -BACITRACIN INJECTION 50,000 UNIT, SODIUM CHLORIDE 0.9% IRRIGATIO 500 ML IR ONE; -CLIN300C11 PO; -DIGO250T PO; -HEParin (CATH LAB) 0 ML IV ONE; -METO100T12 PO; -NS (IVPB) 250 ML ONE; -NS IV 1000 ML 1,000 ML IV ONE; -OMEP20TA7 PO; -VANCOMYCIN 1000 MG/VIAL ONE; -VANCOMYCIN INJECTION 1,000 MG in NS (IVPB) 250 ML IV ONE
--- OUTSIDE RECORDS SUMMARY | 2017-10-07 08:06 | XMS REPORT | Continuity of Care Document ---
Author Author [facility] Organization [facility] Address Unknown Phone Unavailable Allergies Active Description Code Type Severity Reaction Onset Reported/Identified Relationship to Patient Clinical Status Yes Penicillins [id number] Drug Allergy Unknown "LONG AGO DON'T 09/17/2006 [...] MD, Ot I25.10 ATHSCL HEART DISEASE OF [place] CORONARY 06/05/2017 ISAMAR HATFIELD MD Ot I42.9 [...] MD Ot I25.10 ATHSCL HEART DISEASE OF [place] CORONARY 06/06/2017 ISAMAR HATFIELD MD Ot I42.9 [...] MD Ot I25.10 ATHSCL HEART DISEASE OF [place] CORONARY 06/06/2017 ISAMAR HATFIELD MD Ot I42.9 [...] FIBRILLATION 06/14/2017 Clay TRUJILLO MD Ot Z79.01 SENIOR CARE (CURRENT) USE OF ANTICOAGULANT 06/14/2017 Clay TRUJILLO [...] FIBRILLATION 07/05/2017 Clay TRUJILLO MD Ot Z79.01 SENIOR CARE (CURRENT) USE OF ANTICOAGULANT 07/05/2017 Clay TRUJILLO [...] Ot I10 ESSENTIAL (PRIMARY) HYPERTENSION 09/06/2017 JAMILAH OCLLADO, ROBERTO R Ot K21.9 GASTRO-ESOPHAGEAL REFLUX DISEASE [...] Clay LANG Ot E78.5 HYPERLIPIDEMIA, UNSPECIFIED 09/09/2017 CASSANDRA COLLADO, Clay LANG Ot I42.0 DILATED CARDIOMYOPATHY 09/09/2017 CASSANDRA COLLADO, Clay LANG Ot I48.91 UNSPECIFIED ATRIAL FIBRILLATION 09/22/2017 CASSANDRA COLLADO, Caly LANG Ot E66.9 OBESITY, UNSPECIFIED 09/22/2017 CASSANDRA COLLADO, Clay LANG Ot E78.5 HYPERLIPIDEMIA, UNSPECIFIED 09/22/2017 CASSANDRA COLLADO, Clay LANG Ot I42.0 DILATED CARDIOMYOPATHY 09/22/2017 CASSANDRA COLLADO, Clay LANG Ot I48.91 UNSPECIFIED ATRIAL FIBRILLATION Procedures Code Description Performed By Performed On [id number] MEASURE OF CARDIAC SAMPL PRESSURE, L H 06/04/2017 [id number] ORTHODOX OF CARDIAC RHYTHM, SINGLE 06/04/2017 [id number] FLUOROSCOPY OF MULT COR ART USING L OSM 06/04/2017 [id number] FLUOROSCOPY OF LEFT HEART USING LOW OSMO [...] Status Pt. Type Provider Facility Loc./Unit Complaint [id number] 09/30/2017 08:17:00 09/30/2017 23:59:59 CLS Outpatient lCay TRUJILLO MD [facility] CATH CARDIOMYOPATHY [id number] 09/08/2017 08:44:00 09/08/2017 23:59:59 CLS Outpatient Clay TRUJILLO MD [facility] CARD I48.91 AFIB [id number] 06/14/2017 10:55:00 06/14/2017 14:16:00 DIS Outpatient Clay TRUJILLO MD [facility] CATH AFIB [id number] 06/03/2017 15:42:00 06/06/2017 13:00:00 DIS Inpatient ISAMAR HATFIELD MD [facility] ICU AFIB RVR [id number] 06/03/2017 13:47:00 06/03/2017 23:59:59 CLS Outpatient ROBERTO ASKEW MD [facility] RAD I10 E03.9 [id number] 05/13/2017 15:18:00 05/13/2017 23:59:59 CLS Outpatient ROBERTO ASKEW MD [facility] RAD I10 E03.9 R60.9 K21.9 R47.02 R07.9 [id number] 05/05/2017 11:40:00 05/05/2017 23:59:59 CLS Preadmit JERAMIE DOMATILDE S [facility] RAD BILATERAL BREAST ASSYMETRY [id number] 03/05/2015 10:41:00 03/05/2015 12:50:00 DIS Emergency ROSARIO COLLADO, IRAJ Gonzalez [facility] ER CHEST PAIN [id number] 10/07/2017 09:30:00 PEN Preadmit Clay TRUJILLO MD [facility] CATH AFIB [id number] 10/07/2017 08:03:00 ACT Outpatient Clay TRUJILLO MD [facility] SDC CARDIOMYOPATHY
[2017-10-07] MEDS ORDERED: HEParin (CATH LAB) 1,000 ML IV ONE (08:09)
[2017-10-07] MEDS ORDERED: LIDOCAINE 2% VISCOUS 15 ML UDC ONE (08:09)
[2017-10-07] MEDS ORDERED: NS IV 1000 ML 1,000 ML ONE (08:09)
[2017-10-07] MEDS ORDERED: NS IV 1000 ML 1,000 ML IV SCH ×2 (08:14→12:03)
[2017-10-07 08:33] LABS: MEAN PLATELET VOLUME 11.5 FL (7.4-10.4); RED BLOOD COUNT 6.38 10^6/uL (4.35-5.85); WHITE BLOOD COUNT 9.6 10^3/uL (4.3-11.0)
[2017-10-07] MEDS ORDERED: DIGO250T PO (08:55)
[2017-10-07] MEDS ORDERED: OMEP20TA7 PO (08:55)
[2017-10-07] MEDS ORDERED: LISI10TA2 PO (08:55)
[2017-10-07] MEDS ORDERED: METO100T12 PO (08:55)
[2017-10-07 09:00] LABS: INR 1.1 (0.8-1.4); PROTHROMBIN TIME PATIENT 14.5 SEC (12.2-14.7)
[2017-10-07] MEDS ORDERED: BACITRACIN INJECTION 50,000 UNIT, SODIUM CHLORIDE 0.9% IRRIGATIO 500 ML IR ONE ×2 (09:00)
[2017-10-07 09:10] LABS: ALANINE AMINOTRANSFERASE 18 U/L (0-55); ALBUMIN 4.7 GM/DL (3.2-4.5); ALKALINE PHOSPHATASE 97 U/L (40-136); BILIRUBIN,TOTAL 1.5 MG/DL (0.1-1.0); BUN/CREATININE RATIO 15; CALCIUM 9.9 MG/DL (8.5-10.1); CARBON DIOXIDE 30 MMOL/L (21-32); CHLORIDE 102 MMOL/L (98-107); CREATININE SERUM 0.87 MG/DL (0.60-1.30); GFR ESTIMATED > 60; GLUCOSE 120 MG/DL (70-105); POTASSIUM 4.7 MMOL/L (3.6-5.0); SODIUM 141 MMOL/L (135-145); TOTAL PROTEIN 7.6 GM/DL (6.4-8.2)
[2017-10-07] MEDS ORDERED: MIDAZOLAM 5 MG/5 ML (VERSED) VIAL ONE ×2 (09:23→10:37)
[2017-10-07] MEDS ORDERED: proPOfol 200 MG/20 ML (DIPRIVAN) VIAL IV ONE ×2 (09:23→11:32)
[2017-10-07] MEDS ORDERED: LIDOCAINE 2% VISCOUS 15 ML UDC PO ONE (09:30)
[2017-10-07] MEDS ORDERED: MIDAZOLAM 5 MG/5 ML (VERSED) VIAL IV PRN (09:32)
[2017-10-07] MEDS ORDERED: LIDOCAINE 1% INJ 50 ML (XYLOCAINE) VIAL ONE (09:42)
[2017-10-07] MEDS ORDERED: NS (IVPB) 250 ML ONE (09:45)
[2017-10-07] MEDS ORDERED: VANCOMYCIN 1000 MG/VIAL ONE (09:45)
--- NOTE | 2017-10-07 09:59 | Progress Note-Standard ---
Standard Progress Note Progress Notes/Assess & Plan Date Seen by Provider: Oct 07, 2017 Time Seen by Provider: 09:50 Progress/Assessment & Plan consult for cardioversion. asa 3 ... start time 0950 end time 0955. 75 mg propofol given iv. JALEN STOVER CRNA Oct 07, 2017 09:59
[2017-10-07] MEDS ORDERED: fentaNYL INJECTION 100 MCG/2 ML AMP ONE ×2 (10:17→10:41)
[2017-10-07] MEDS ORDERED: diphenhydrAMINE 50 MG/ML INJ (BENADRYL) ONE (10:17)
--- NOTE | 2017-10-07 10:20 | Cardiac Procedure Note-CS/ASA ---
Pre-Procedure Note Pre-Op Procedure Note H&P Reviewed The H&P was reviewed, patient examined and no changes noted. Date H&P Reviewed: Oct 07, 2017 Time H&P Reviewed: 09:00 Conscious Sedation Pre-Proced Time Reviewed: 09:00 ASA Class: 3 Airway Mallampati Classification: ([place] appropriate class) I. II. III, IV Lungs Heart ASA score ASA 1: a normal healthy patient ASA 2: a patient with a mild systemic disease (mid diabetes, controlled hypertension, obesity ASA 3: a patient with a severe systemic disease that limits activity (angina , COPD, prior Myocardial infarction) ASA 4: a patient with an incapacitating disease that is a constant threat to life (CHF, renal failure) ASA 5: a moribund patient not expected to survive 24 hrs. (ruptured aneurysm) ASA 6: a declared brain patient whose organs are being harvested. For emergent operations, add the letter E after the classification Grade 1 Sedation Plan: Analgesia, Amnesia, Plan communicated to team members, Discussed options with patient/fam, Discussed risks with patient/fam Note The patient is an appropriate candidate to undergo the planned procedure, sedation, and anesthesia. The patient immediately re-assessed prior to indication. Clay TRUJILLO MD Oct 07, 2017 10:20 am
--- NOTE | 2017-10-07 10:20 | Cardioversion ---
Cardioversion PROCEDURE PHYSICIAN: Maria D Kirby MD DATE OF PROCEDURE: 10/07/17 DIRECT EXTERNAL ELECTRICAL CARDIOVERSION: Indications: Atrial Fibrillation with controlled ventricular rate Preoperative diagnoses: Atrial Fibrillation with controlled ventricular rate Postoperative diagnosis: Sinus rhythm, Successful Electrical Cardioversion History: This is a 47-year-old gentleman with history of nonischemic cardiomyopathy and persistent atrial fibrillation. We intend to implant a dual-chamber ICD for primary prevention of sudden cardiac . Cardioversion is planned. Anesthesia: By Anesthesia services Complications: None Specimen: None Contrast: 0 Flouroscopy: none Procedure Details: The patient was brought the phlebotomist lab assistant after informed consent was taken, all the risks and complications were explained including the risk of stroke. Transesophageal echocardiogram did not show any left atrial or left atrial appendage thrombus. Electrical cardioversion was carried out with anesthesia support with propofol. 150 joules of synchronized shock was delivered through external patches which promptly restored sinus rhythm. The patient tolerated the procedure well. Conclusions: 1.Successful Cardioversion. Proceed to ICD implantation. 2.Continue oral anticoagulation and rate controlling agent. 3.Follow up in office in 7 days. Maria D Kirby MD, RS, CCDS Cardiac Electrophysiology Clay KIRBY MD Oct 07, 2017 10:20 am
[2017-10-07] MEDS ORDERED: NEO/POLY/BAC (NEOSPORIN) OINT 15 GM TUBE ONE (11:45)
--- NOTE | 2017-10-07 11:47 | Progress Note-Standard ---
Standard Progress Note Progress Notes/Assess & Plan Date Seen by Provider: Oct 07, 2017 Time Seen by Provider: 11:35 Progress/Assessment & Plan consult for cardioversion. asa 3 ... start time 0950 end time 0955. 75 mg propofol given iv. JALEN STOVER CRNA Oct 07, 2017 11:47
[2017-10-07] MEDS ORDERED: PATIENT MAY USE OWN MEDS, ALL PO SCH (12:15)
--- NOTE | 2017-10-07 12:17 | Single Chamber ICD Implant ---
Single Chamber ICD Implant DATE OF SERVICE: 10/07/2017 DUAL CHAMBER ICD IMPLANTATION PRIMARY PHYSICIAN: Mike Gilman MD CARDIAC MEDICAL TRANSCRIPTION SUPERVISOR: Maria D Kirby MD INDICATION: nonischemic cardiomyopathy, atrial fibrillation PREOPERATIVE DIAGNOSES: nonischemic cardiomyopathy, atrial fibrillation POSTOPERATIVE DIAGNOSES: successful dual-chamber ICD implantation. HISTORY: this is a 47-year-old gentleman who has history of nonischemic cardiomyopathy with EF of 30 percent for over 3 months. His been on optimal medical therapy for at least the last 3 months. NYHA class III heart failure. History of atrial fibrillation. Dual-chamber ICD implantation is recommended. PROCEDURE PERFORMED: 1. dual-chamber ICD implantation. 2. DFT testing. COMPLICATIONS: None. ESTIMATED BLOOD LOSS: 20 mL. SPECIMENS: None. ANESTHESIA: Conscious sedation. ORAL ANTICOAGULATION: None. FLUOROSCOPY TIME: 8.49 minutes FLUOROSCOPY DOSE:. 56mgy. CONTRAST DOSE: 0 PROCEDURE DETAILS: After all the questions were answered, an informed consent was taken. All the risks and complication were explained in detail. The patient was brought to the EP lab. The patient's right and left chest was prepped and draped in the usual sterile fashion. A 2-inch horizontal incision was made 1 cm below the clavicle and dissection carried down to the pectoralis fascia. IV antibiotics were administered prior to first incision. Under fluoroscopic guidance, access was gained in the axillary vein twice and two regular J-wire was placed. We then introduced a two sheaths into the axillary vein. A ICD lead was inserted. This is a single-coiled ICD lead. The RV lead was inserted across the tricuspid valve to an apical septal portion of the RV. The lead position was checked in [place] and [place] view. The screw was deployed and lead connected to the scientific programmer analyst. Good sensing and pacing thresholds were obtained. Diaphragmatic pacing was ruled out. The lead was secured with 2-0 Vicryl nonabsorbable sutures. The lead was secured to the underlying muscle and fascia. A RA lead was inserted and placed in the RA appendage. The screw was deployed and lead connected to the scientific programmer analyst. Good sensing and pacing thresholds were obtained. Diaphragmatic pacing was ruled out. The lead was secured with 2-0 Vicryl nonabsorbable sutures. The lead was secured to the underlying muscle and fascia. We then took an ICD generator and the leads were connected to the device in a hermetic fashion. The device and it was placed in the pocket. Aggressive irrigation with normal saline solution was done. Interrogation of the device revealed good integrity of the leads and connection. The wound was closed using 2 layers. The first layer was an interrupted 2-0 Vicryl. The second layer was an uninterrupted 4-0 Vicryl suture. Half inch Steri-Strips and a small dressing was then applied to the wound. DFT testing was done with anesthesia support. The induction mechanism was a T- shock. The T-shock was at 400 milliseconds at one joule. sustained VF was noted. Successful treatment through the device via a 25 J shock. Good sensing with no dropouts. DEVICE INFORMATION: [employer] [id number] ,serial number [id number]. RA lead, model number 300060, length 52, serial number [id number]. RV lead, model number 6935 amp 62, length 62, serial number [id number]. INTRAOPERATIVE DEVICE TESTING: RA: Threshold 0.4 V at 0.5 ms. Impedance 626 ohms. P wave 6.4 millivolts. RV: Threshold 0.6 V at 0.5 ms. Impedance 662 ohms. R-wave is 8.8 mV. DEVICE INTERROGATION IMMEDIATELY POSTOP: RA P-wave space 3.4 mV. Pacing impedance 513. Threshold 0.75V at 0.4 ms. RV R-wave 8.0 mV. Pacing impedance 513 ohms. HVB impedance 74 1. Threshold 0.5 V at 0.4 ms. PLAN: The patient will be observed for 23 hours. We will continue with two more dosages of IV antibiotics. We will check a chest x-ray and interrogate the device in the morning. An EKG will be done as well. If everything checks out, the patient will be discharged tomorrow. Maria D Kirby MD, [facility], CCDS Cardiac Electrophysiology Clay KIRBY MD Oct 07, 2017 12:17
[2017-10-07] MEDS ORDERED: VANCOMYCIN 2000 MG/NS 500 ML IVPB IV NR ×2 (13:02)
--- NOTE | 2017-10-07 13:41 | Diagnostic Imaging Report ---
EXAMINATION: Portable erect AP chest at 12:22 p.m. INDICATION: Post ICD placement. FINDINGS: The heart is enlarged, but the cardiac silhouette has decreased in size since the prior exam of 06/03/2017. The bands of atelectasis/infiltrate in each mid lung seen on the prior study have also resolved. The lungs are now clear and well aerated. The mediastinum is not widened. The osseous structures are intact. In the interval since the prior exam, a left-sided defibrillator device has been inserted. The leads seem to be in good position. There is no sign of pneumothorax. IMPRESSION: 1. The appearance of the chest has improved since the prior exam as the heart has decreased in size, and the lungs do seem better aerated. There is no evidence for active disease. 2. There has been interval insertion of a left-sided defibrillator device without apparent complication. Dictated by: Dictated on workstation # [id number]
[2017-10-07] MEDS: METOPROLOL TART 100 MG TAB PO SCH (20:22)
[2017-10-07] MEDS: APIXABAN 5 MG (ELIQUIS) TABLET PO SCH (20:22)
[2017-10-08] VITALS (10 sets, daily range): BP systolic 98–119; BP diastolic 59–85
[2017-10-08] MEDS: VANCOMYCIN INJECTION 1,500 MG in NS IV 500 ML 500 ML IV SCH ×2 (01:26→11:53)
[2017-10-08 02:32] LABS: HEMOGLOBIN 15.6 G/DL (13.3-17.7); MEAN PLATELET VOLUME 11.4 FL (7.4-10.4); RED BLOOD COUNT 5.18 10^6/uL (4.35-5.85); RED CELL DISTRIBUTION WIDTH 13.9 % (10.0-14.5); WHITE BLOOD COUNT 10.3 10^3/uL (4.3-11.0)
[2017-10-08 03:06] LABS: ALANINE AMINOTRANSFERASE 17 U/L (0-55); ALBUMIN 3.5 GM/DL (3.2-4.5); ALKALINE PHOSPHATASE 78 U/L (40-136); BUN/CREATININE RATIO 20; CARBON DIOXIDE 28 MMOL/L (21-32); CHLORIDE 105 MMOL/L (98-107); CREATININE SERUM 0.84 MG/DL (0.60-1.30); GFR ESTIMATED > 60; GLUCOSE 97 MG/DL (70-105); POTASSIUM 4.7 MMOL/L (3.6-5.0); SODIUM 140 MMOL/L (135-145); TOTAL PROTEIN 5.1 GM/DL (6.4-8.2)
[2017-10-08] MEDS ORDERED: ARMOUR THYROID 120 MG PO SCH (06:30)
[2017-10-08] MEDS ORDERED: OMEPRAZOLE 20 MG CAPSULE PO SCH (07:00)
[2017-10-08] MEDS ORDERED: KCL 20 MEQ TAB (K-DUR) PO SCH (07:00)
[2017-10-08] MEDS ORDERED: MULTIVITAMIN PO SCH (08:00)
[2017-10-08] MEDS: APIXABAN 5 MG (ELIQUIS) TABLET PO SCH (08:01)
[2017-10-08] MEDS: METOPROLOL TART 100 MG TAB PO SCH (08:02)
[2017-10-08] MEDS ORDERED: OMEPRAZOLE 20 MG (PriLOSEC) CAP NON-FORMULARY PO SCH (09:00)
[2017-10-08] MEDS ORDERED: FUROSEMIDE 40 MG (LASIX) TAB PO SCH (09:00)
[2017-10-08] MEDS ORDERED: lisINopril 10 MG (PRINIVIL) TABLET PO SCH (09:00)
[2017-10-08] MEDS ORDERED: DIGOXIN 0.25 MG (LANOXIN) TAB PO SCH (09:00)
--- NOTE | 2017-10-08 13:31 | Cardiology Discharge Summary ---
Diagnosis/Chief Complaint Date of Admission 10/07/2017 Date of Discharge 10/08/2017 Admission Diagnosis Nonischemic cardiomyopathy with EF 30 percent, Congestive heart failure, Atrial fibrillation Final/Discharge Diagnosis Status post dual chamber ICD [employer]. Successful cardioversion Chief Complaint/HPI Chief Complaint/HPI This is a 47-year-old gentleman who has history of nonischemic cardiomyopathy which was diagnosed over 3 months. He was started on optimal medical therapy for at least the last 3 months, ejection fraction is still 30 percent. Patient has [place] Heart Association class I-II CHF. Patient also has persistent atrial fibrillation with one failed attempt cardioversion previously. Discharge Summary Procedures Transesophageal echocardiogram showed normal left atrial or left atrial appendage thrombus. Successful external electrical cardioversion which converted atrial fibrillation to sinus rhythm. Successful dual chamber ICD placement. Discharge Physical Examination Normal left upper chest with no infection or hematoma. Normal cardiovascular examination. Normal respiratory examination. Hospital Course Unremarkable. Sinus rhythm on telemetry. Radiology Reviewed Chest x-ray done post procedure did not show any pneumothorax. Discussion & Recommendations Discussion Postoperative device interrogation was normal. EKG showed atrial paced rhythm. Vancomycin was given overnight. Discharge took over 30 minutes to complete. Follow up appt.: Dr. Kirby in 7-10 days Dicharge Diet: Low Sodium Diet Activity as Tolerated: Yes Home Medications Reviewed patient Home Medication Reconciliation performed by pharmacy medication reconciliations generation technician and/or nursing. Patients Allergies have been reviewed. Discharge Home Medications: Reviewed and agree with Discharge Medication list on patient's Discharge Instruction sheet Condition at discharge stable. Instructions to patient/family Device instructions given to the patient. Clay KIRBY MD Oct 08, 2017 13:31
--- NOTE | 2017-10-08 13:32 | Discharge Inst-Post Device ---
Discharge Inst-Post Device Follow up/Plan Follow up in one week. Ok to go to desk work on 10/11/2017 Heart Healthy Diet Do not lift arm on side of device placement above head for 4 weeks. Do not push and pull heavy objects for 4 weeks. Activity as tolerated. Leave dressing on until follow up at the office. Clay TRUJILLO MD Oct 08, 2017 1:31 pm
[2017-10-08] MEDS ORDERED: CLIN300C11 PO (14:05)
[2017-10-09] MEDS ORDERED: TROUGH ORDER-PHARMACY XX NR (12:00)
== END 2017-10-08 14:15 | disposition home or self-care (01) ==
LOC: SDC 08:03 → ICU 12:30 → SDC 10-08 14:15
PROVIDERS: ATTEND Internal Medicine Interventional Cardiology
DX: I48.1 Persistent atrial fibrillation (principal); I42.0 Dilated cardiomyopathy; I50.20 Unspecified systolic (congestive) heart failure; I10 Essential (primary) hypertension; F17.210 Nicotine dependence, cigarettes, uncomplicated; I34.0 Nonrheumatic mitral (valve) insufficiency; E78.5 Hyperlipidemia, unspecified; E66.9 Obesity, unspecified; Z68.30 Body mass index [BMI] 30.0-30.9, adult; Z82.49 Family history of ischemic heart disease and other diseases of the circulatory system; Z79.01 Long term (current) use of anticoagulants; Z79.899 Other long term (current) drug therapy
CPT/HCPCS: 33208; 36415; 71045; 80053; 85027; 85610; 85730; 87081; 92960; 93005

== ENCOUNTER 2017-10-18 17:29 | Inpatient (IN) | payer OTHER ==
[2017-10-18] VITALS (13 sets, daily range): BP systolic 92–127; BP diastolic 57–83
[~2017-10-18] VITALS: Ht 177.8 cm; Wt 95.0 kg
[~2017-10-18 17:29] MED LIST changes: +CLIN300C11 PO; +DIGO250T PO; +METO100T12 PO; +OMEP20TA7 PO
--- NOTE | 2017-10-18 17:43 | ED Cardiac General ---
History of Present Illness General Chief Complaint: Cardiac/General Problems Source: patient Exam Limitations: no limitations History of Present Illness Date Seen by Provider: Oct 18, 2017 Time Seen by Provider: 17:41 Initial Comments To ER per EMS from home with reports of defibrillator discharge. Patient states that he was feeling fine until his defibrillator placed on the 15 of this month discharge 4 times. He believes that his defibrillator will discharge at a heart rate greater than 210. Upon EMS arrival he was noted to be atrial fibrillation with rapid ventricular response a rate of 180-200. She denies shortness of breath or chest pain. Stopped digoxin at time of pacemaker placement. 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 ASA po REINFORCING IRON WORKER HELPER: No Allergies and Home Medications Allergies Coded Allergies: Penicillins (Verified Allergy, Unknown, "LONG AGO DON'T REMEMBER REACTION ", 09/17/06) Home Medications Apixaban 5 Mg Tablet, 5 MG PO BID Prescribed by: ISAMAR HATFIELD on 06/06/17 1224 Clindamycin HCl 300 Mg Capsule, 300 MG PO Q8H Prescribed by: VIRGINIA PRINGLE on 10/08/17 1405 Furosemide 40 Mg Tablet, 40 MG PO DAILY Prescribed by: ISAMAR HATFIELD on 06/06/17 1225 Lisinopril 10 Mg Tablet, 20 MG PO DAILY, (Reported) TAKES 2 (10MG) TABLETS Metoprolol Tartrate 100 Mg Tablet, 100 MG PO BID, (Reported) Multivitamin 1 Each Tablet, 1 TAB PO DAILY, (Reported) Omeprazole 20 Mg Capsule.dr, 20 MG PO DAILY, (Reported) Potassium Chloride 20 Meq Tab.er.prt, 40 MEQ PO DAILY@0700 Prescribed by: ISAMAR HATFIELD on 06/06/17 1225 Thyroid,Pork 120 Mg Tablet, 120 MG PO DAILY, (Reported) Patient Home Medication List Home Medication List Reviewed: Yes Review of Systems Constitutional: see HPI EENTM: No Symptoms Reported Respiratory: No Symptoms Reported Cardiovascular: See HPI, Denies Chest Pain, Denies Edema, Denies Irregular Heart Rate, Denies Lightheadedness, Denies Palpitations, Denies Syncope Gastrointestinal: See HPI Genitourinary: No Symptoms Reported Musculoskeletal: no symptoms reported Skin: no symptoms reported Psychiatric/Neurological: No Symptoms Reported Endocrine: No Symptoms Reported Hematologic/Lymphatic: No Symptoms Reported Past Ndecqqk-Mzbkuf-Jtxzgy Hx Patient Social History Alcohol Beverage of Choice: Beer Type Used: Cigarettes Recent Hopitalizations: No Immunizations Up To Date Date of Influenza Vaccine: May 03, 2017 Seasonal Allergies Seasonal Allergies: No Surgeries History of Surgeries: Yes (thyroidectomy) Surgeries: Orthopedic Respiratory History of Respiratory Disorde: No Cardiovascular History of Cardiac Disorders: Yes (New onset Afib and CHF) Cardiac Disorders: Hypertension Neurological History of Neurological Disord: No Reproductive System Hx Reproductive Disorders: No Sexually Transmitted Disease: No Genitourinary History of Genitourinary Disor: No Gastrointestinal History of Gastrointestinal Di: Yes Gastrointestinal Disorders: Gastroesophageal Reflux Musculoskeletal History of Musculoskeletal Dis: No Endocrine History of Endocrine Disorders: Yes Endocrine Disorders: Hyperthyroidism, Hypothyroidsim HEENT History of HEENT Disorders: No Cancer History of Cancer: No Psychosocial History of Psychiatric Problem: No Integumentary History of Skin or Integumenta: No Blood Transfusions History of Blood Disorders: No Family Medical History Significant Family History: CAD Under 55 Years Old Physical Exam Vital Signs Vital Signs - First Documented 10/18/17 17:40 Temp 98.2 Pulse 160 Resp 20 B/P (MAP) 121/99 (106) Pulse Ox 97 O2 Delivery Nasal Cannula O2 Flow Rate 2.00 Capillary Refill : General Appearance: No Apparent Distress, WD/WN, Other HEENT: PERRL/EOMI, TMs Normal Neck: Full Range of Motion, Normal Inspection Respiratory: Normal Breath Sounds, No Accessory Muscle Use, No Respiratory Distress Cardiovascular: Irregularly Irregular, Tachycardia Gastrointestinal: Non Tender, Soft Extremity: Normal Capillary Refill, Normal Inspection Neurologic/Psychiatric: Alert, Oriented x3 Skin: Normal Color, Warm/Dry Progress/Results/Core Measures Results/Orders Lab Results Laboratory Tests Test 10/18/17 18:00 Range/Units White Blood Count 9.1 4.3-11.0 10^3/uL Red Blood Count 5.49 4.35-5.85 10^6/uL Hemoglobin 16.5 13.3-17.7 G/DL Hematocrit 47 40-54 % Mean Corpuscular Volume 85 80-99 FL Mean Corpuscular Hemoglobin 30 25-34 PG Mean Corpuscular Hemoglobin Concent 35 32-36 G/DL Red Cell Distribution Width 12.7 10.0-14.5 % Platelet Count 179 130-400 10^3/uL Mean Platelet Volume 11.2 H 7.4-10.4 FL Neutrophils (%) (Auto) 55 42-75 % Lymphocytes (%) (Auto) 29 12-44 % Monocytes (%) (Auto) 10 0-12 % Eosinophils (%) (Auto) 6 0-10 % Basophils (%) (Auto) 0 0-10 % Neutrophils # (Auto) 5.0 1.8-7.8 X 10^3 Lymphocytes # (Auto) 2.6 1.0-4.0 X 10^3 Monocytes # (Auto) 0.9 0.0-1.0 X 10^3 Eosinophils # (Auto) 0.6 H 0.0-0.3 10^3/uL Basophils # (Auto) 0.0 0.0-0.1 10^3/uL Urine Color YELLOW Urine Clarity CLEAR Urine pH 6.5 5-9 Urine Specific [place] 1.015 L 1.016-1.022 Urine Protein 1+ H NEGATIVE Urine Glucose (UA) NEGATIVE NEGATIVE Urine Ketones NEGATIVE NEGATIVE Urine Nitrite NEGATIVE NEGATIVE Urine Bilirubin NEGATIVE NEGATIVE Urine Urobilinogen NORMAL NORMAL MG/DL Urine Leukocyte Esterase NEGATIVE NEGATIVE Urine RBC (Auto) NEGATIVE NEGATIVE Urine RBC NONE /HPF Urine WBC NONE /HPF Urine Squamous Epithelial Cells RARE /HPF Urine Crystals NONE /LPF Urine Bacteria NONE /HPF Urine Casts NONE /LPF Urine Mucus NEGATIVE /LPF Urine Culture Indicated NO Sodium Level 137 135-145 MMOL/L Potassium Level 4.1 3.6-5.0 MMOL/L Chloride Level 103 98-107 MMOL/L Carbon Dioxide Level 28 21-32 MMOL/L Anion Gap 6 5-14 MMOL/L Blood Urea Nitrogen 13 7-18 MG/DL Creatinine 0.82 0.60-1.30 MG/DL Estimat Glomerular Filtration Rate > 60 BUN/Creatinine Ratio 16 Glucose Level 182 H 70-105 MG/DL Calcium Level 8.3 L 8.5-10.1 MG/DL Magnesium Level 2.1 1.8-2.4 MG/DL Total Bilirubin 0.5 0.1-1.0 MG/DL Aspartate Amino Transf (AST/SGOT) 22 5-34 U/L Alanine Aminotransferase (ALT/SGPT) 22 0-55 U/L Alkaline Phosphatase 111 40-136 U/L Troponin I < 0.30 <0.30 NG/ML Total Protein 6.2 L 6.4-8.2 GM/DL Albumin 3.8 3.2-4.5 GM/DL Thyroid Stimulating Hormone (TSH) 0.19 L 0.35-4.94 UIU/ML Free Thyroxine 0.90 0.70-1.48 NG/DL Digoxin Level < 0.30 L 0.80-2.00 NG/ML My Orders Orders - BRAD ANDUJAR APRN Metoprolol Tartrate Injection (Lopressor (10/18/17 17:45) Cbc With Automated Diff (10/18/17 17:36) Comprehensive Metabolic Panel (10/18/17 17:36) Ua Culture If Indicated (10/18/17 17:36) Thyroid Stimulating Hormone (10/18/17 17:36) Free T4 (Free Thyroxine) (10/18/17 17:36) Saline Lock/Iv-Start (10/18/17 17:36) Magnesium (10/18/17 17:36) Aspirin Chewable Tablet (Baby Aspirin Ch (10/18/17 17:45) Digoxin (10/18/17 17:39) Levalbuterol (Non-Formulary) (Xopenex (N (10/18/17 17:45) Esmolol Drip Premix (Brevibloc Drip Darrius (10/18/17 18:15) Digoxin Injection (Lanoxin Injection) (10/18/17 18:30) Ns Iv 1000 Ml (Sodium Chloride 0.9%) (10/18/17 18:45) Ns Iv 500 Ml (Sodium Chloride 0.9%) (10/18/17 18:45) Ns Iv 500 Ml (Sodium Chloride 0.9%) (10/18/17 19:00) Troponin I (10/18/17 19:18) Medications Given in ED Current Medications Medications Dose Ordered Sig/Savage Route Start Time Stop Time Status Last Admin Dose Admin Aspirin 324 mg ONCE ONCE PO 10/18/17 17:45 10/18/17 17:46 DC 10/18/17 17:45 324 MG Digoxin 0.25 mg ONCE ONCE IV 10/18/17 18:30 10/18/17 18:31 DC 10/18/17 18:33 0.25 MG Metoprolol Tartrate 5 mg ONCE ONCE IV 10/18/17 17:45 10/18/17 17:46 DC 10/18/17 17:45 5 MG Vital Signs/I&O Vital Sign - Last 12Hours 10/18/17 10/18/17 17:40 18:29 Temp 98.2 98.2 Pulse 160 160 Resp 20 20 B/P (MAP) 121/99 (106) 121/99 Pulse Ox 97 97 O2 Delivery Nasal Cannula O2 Flow Rate 2.00 2.00 Departure Communication (Admissions) Time/Spoke to Admitting Phy: 19:[address] Ricketts who agrees to admit. Time/Spoke to Consulting Phy: 19:26 Communication/Consulting Dr. Kirby will consult Progress Notes 1838- elbow drip started with a 0.5 mg/kg bolus then starting at 50 mics per kilo per minute drip. Discussed with Dr. Kirby. He recommends adding in either an amiodarone drip or Cardizem drip. I discussed with pharmacy and Cardizem is on very short supply, they do have only a few vials left A state. We will continue with the Cardizem drip. I did re-dose him with digoxin [address] Kirby would like to have pacemaker interrogation in the morning. Impression Impression: Primary Impression: Atrial fibrillation with rapid ventricular response Disposition: ADMITTED INPATIENT Condition: Stable Admissions Decision to Admit Reason: Admit from ER (General) Decision to Admit/Date: Oct 18, 2017 Time/Decision to Admit Time: 18:39 Departure-Patient Inst. Referrals: ROBERTO ASKEW MD (PCP/Family) Primary Care Physician BRAD ANDUJAR APRN Oct 18, 2017 17:43
[2017-10-18] MEDS ORDERED: meTOprolol 5 MG/5 ML (LOPRESSOR) VIAL IV ONE (17:45)
[2017-10-18] MEDS ORDERED: ASPIRIN 81 MG CHEW (CHILDREN'S ASA) PO ONE (17:45)
[2017-10-18] MEDS ORDERED: RT-LEVALBUTEROL (XOPENEX) 1.25 MG/3 ML NEB NON-FORMULARY INH SCH (17:45)
[2017-10-18 18:15] LABS: BASOPHILS % (AUTO) 0 % (0-10); BILIRUBIN,URINE NEGATIVE (NEGATIVE); CLARITY,URINE CLEAR; COLOR,URINE YELLOW; EOSINOPHILS # (AUTO) 0.6 10^3/uL (0.0-0.3); EOSINOPHILS % (AUTO) 6 % (0-10); GLUCOSE, URINE (UA) NEGATIVE (NEGATIVE); HEMATOCRIT 47 % (40-54); HEMOGLOBIN 16.5 G/DL (13.3-17.7); KETONES,URINE NEGATIVE (NEGATIVE); LEUKOCYTE ESTERASE ,URINE NEGATIVE (NEGATIVE); LYMPHOCYTES # (AUTO) 2.6 X 10^3 (1.0-4.0); LYMPHOCYTES % (AUTO) 29 % (12-44); MEAN CORPUSCULAR HEMOGLOBIN 30 PG (25-34); MEAN CORPUSCULAR HGB CONC 35 G/DL (32-36); MEAN CORPUSCULAR VOLUME 85 FL (80-99); MEAN PLATELET VOLUME 11.2 FL (7.4-10.4); MONOCYTES # (AUTO) 0.9 X 10^3 (0.0-1.0); MONOCYTES % (AUTO) 10 % (0-12); NEUTROPHILS % (AUTO) 55 % (42-75); NITRITE,URINE NEGATIVE (NEGATIVE); PH,URINE 6.5 (5-9); PLATELET COUNT 179 10^3/uL (130-400); PROTEIN,URINE 1+ (NEGATIVE); RED BLOOD COUNT 5.49 10^6/uL (4.35-5.85); RED CELL DISTRIBUTION WIDTH 12.7 % (10.0-14.5); UROBILINOGEN,URINE NORMAL (NORMAL); WHITE BLOOD COUNT 9.1 10^3/uL (4.3-11.0)
[2017-10-18] MEDS ORDERED: ESMOLOL DRIP PREMIX 250 ML IV SCH (18:15)
[2017-10-18 18:22] LABS: SQUAMOUS EPITHELIAL CELL,UR RARE /HPF
[2017-10-18] MEDS ORDERED: DIGOXIN 0.25 MG/ML (LANOXIN) 2 ML AMP IV ONE (18:30)
[2017-10-18 18:45] LABS: ALANINE AMINOTRANSFERASE 22 U/L (0-55); ALBUMIN 3.8 GM/DL (3.2-4.5); ALKALINE PHOSPHATASE 111 U/L (40-136); BILIRUBIN,TOTAL 0.5 MG/DL (0.1-1.0); BUN/CREATININE RATIO 16; CALCIUM 8.3 MG/DL (8.5-10.1); CARBON DIOXIDE 28 MMOL/L (21-32); CHLORIDE 103 MMOL/L (98-107); CREATININE SERUM 0.82 MG/DL (0.60-1.30); GFR ESTIMATED > 60; GLUCOSE 182 MG/DL (70-105); MAGNESIUM 2.1 MG/DL (1.8-2.4); POTASSIUM 4.1 MMOL/L (3.6-5.0); SODIUM 137 MMOL/L (135-145); TOTAL PROTEIN 6.2 GM/DL (6.4-8.2)
[2017-10-18] MEDS ORDERED: NS IV 1000 ML 1,000 ML IV SCH (18:45)
[2017-10-18] MEDS ORDERED: NS IV 500 ML 500 ML IV SCH (18:45)
[2017-10-18] MEDS ORDERED: NS IV 500 ML 500 ML SCH (19:00)
[2017-10-18 19:05] LABS: DIGOXIN < 0.30 NG/ML (0.80-2.00)
[2017-10-18] MEDS: ESMOLOL DRIP PREMIX 250 ML IV SCH (22:52)
[2017-10-18] MEDS: NS IV 1000 ML 1,000 ML IV SCH (22:53)
[2017-10-19] VITALS (60 sets, daily range): BP systolic 82–143; BP diastolic 57–92
[2017-10-19 03:52] LABS: BASOPHILS % (AUTO) 0 % (0-10); EOSINOPHILS # (AUTO) 0.5 10^3/uL (0.0-0.3); EOSINOPHILS % (AUTO) 8 % (0-10); HEMATOCRIT 47 % (40-54); HEMOGLOBIN 16.3 G/DL (13.3-17.7); LYMPHOCYTES # (AUTO) 2.4 X 10^3 (1.0-4.0); LYMPHOCYTES % (AUTO) 35 % (12-44); MEAN CORPUSCULAR HEMOGLOBIN 30 PG (25-34); MEAN CORPUSCULAR HGB CONC 35 G/DL (32-36); MEAN CORPUSCULAR VOLUME 86 FL (80-99); MEAN PLATELET VOLUME 10.8 FL (7.4-10.4); MONOCYTES # (AUTO) 0.6 X 10^3 (0.0-1.0); MONOCYTES % (AUTO) 8 % (0-12); NEUTROPHILS # (AUTO) 3.5 X 10^3 (1.8-7.8); NEUTROPHILS % (AUTO) 49 % (42-75); PLATELET COUNT 163 10^3/uL (130-400); RED BLOOD COUNT 5.41 10^6/uL (4.35-5.85); RED CELL DISTRIBUTION WIDTH 12.8 % (10.0-14.5)
[2017-10-19 04:23] LABS: BUN/CREATININE RATIO 15; CALCIUM 8.4 MG/DL (8.5-10.1); CARBON DIOXIDE 26 MMOL/L (21-32); CHLORIDE 106 MMOL/L (98-107); CREATININE SERUM 0.72 MG/DL (0.60-1.30); GFR ESTIMATED > 60; GLUCOSE 106 MG/DL (70-105); MAGNESIUM 1.9 MG/DL (1.8-2.4); PHOSPHORUS 4.1 MG/DL (2.3-4.7); POTASSIUM 4.1 MMOL/L (3.6-5.0); SODIUM 139 MMOL/L (135-145)
[2017-10-19] MEDS: ESMOLOL DRIP PREMIX 250 ML IV SCH ×3 (04:38→23:51)
--- NOTE | 2017-10-19 07:48 | Pulmonary Consultation ---
History of Present Illness History of Present Illness Date of Consultation 10/19/17 07:43 Time Seen by Provider: 07:43 Date of Admission History of Present Illness 47yo presented to ED via EMS after ICD discharged. Pt states he was feeling fine and just woke up from nap when defibrillator discharged. PT was noted to be in afib upon arrival. Pt was admitted to ICU and cardiology is consulted. Pt does currently smoke but no hx of known COPD or ADELIA. I am consulted for pulmonary/CC management. Allergies and Home Medications Allergies Coded Allergies: Penicillins (Verified Allergy, Unknown, "LONG AGO DON'T REMEMBER REACTION ", 09/17/06) Home Medications Apixaban 5 Mg Tablet, 5 MG PO BID Prescribed by: ISAMAR HATFIELD on 06/06/17 1224 Clindamycin HCl 300 Mg Capsule, 300 MG PO Q8H Prescribed by: VIRGINIA PRINGLE on 10/08/17 1405 Furosemide 40 Mg Tablet, 40 MG PO DAILY Prescribed by: ISAMAR HATFIELD on 06/06/17 1225 Lisinopril 10 Mg Tablet, 20 MG PO DAILY, (Reported) TAKES 2 (10MG) TABLETS Metoprolol Tartrate 100 Mg Tablet, 100 MG PO BID, (Reported) Multivitamin 1 Each Tablet, 1 TAB PO DAILY, (Reported) Omeprazole 20 Mg Capsule.dr, 20 MG PO DAILY, (Reported) Potassium Chloride 20 Meq Tab.er.prt, 40 MEQ PO DAILY@0700 Prescribed by: ISAMAR HATFIELD on 06/06/17 1225 Thyroid,Pork 120 Mg Tablet, 120 MG PO DAILY, (Reported) Past Xkbcolb-Kckgqv-Ynmrsv Hx Patient Social History Alcohol Use: Occasionally Uses Number of Drinks Today: AA Alcohol Beverage of Choice: Beer Recreational Drug Use: No Smoking Status: Current Everyday Smoker Type Used: Cigarettes Recent Foreign Travel: No Contact w/Someone Who Travel: No Recent Infectious Disease Expo: No Recent Hopitalizations: Yes (09/2017) Immunizations Up To Date PED Vaccines UTD: No Date of Influenza Vaccine: May 03, 2017 Seasonal Allergies Seasonal Allergies: No Surgeries History of Surgeries: Yes (thyroidectomy, INTRAMEDULLARY NAILING R DISTAL TIBIA WITH C-ARM) Surgeries: Defibrillator, Orthopedic Respiratory History of Respiratory Disorde: No Currently Using CPAP: No Currently Using BIPAP: No Cardiovascular History of Cardiac Disorders: Yes (New onset Afib and CHF) Cardiac Disorders: Hypertension Neurological History of Neurological Disord: No Reproductive System Hx Reproductive Disorders: No Sexually Transmitted Disease: No HIV/AIDS: No Genitourinary History of Genitourinary Disor: No Gastrointestinal History of Gastrointestinal Di: Yes Gastrointestinal Disorders: Gastroesophageal Reflux Musculoskeletal History of Musculoskeletal Dis: No Endocrine History of Endocrine Disorders: Yes Endocrine Disorders: Hyperthyroidism, Hypothyroidsim HEENT History of HEENT Disorders: No Loss of Vision: Denies Hearing Impairment: Denies Cancer History of Cancer: No Psychosocial History of Psychiatric Problem: No Integumentary History of Skin or Integumenta: No Blood Transfusions History of Blood Disorders: No Adverse Reaction to a Blood Tr: No Family Medical History Significant Family History: CAD Under 55 Years Old Exam Exam Vital Signs Date Time Temp Pulse Resp B/P (MAP) Pulse Ox O2 Delivery O2 Flow Rate FiO2 10/19/17 06:45 124 22 106/75 (85) 93 Room Air 10/19/17 06:30 111 24 117/76 (90) 94 Room Air 10/19/17 06:15 103 22 123/82 (96) 93 Room Air 10/19/17 06:00 101 12 124/90 (101) 95 Room Air 10/19/17 05:45 100 17 110/74 (86) 90 Room Air 10/19/17 05:30 95 15 103/67 (79) 94 Room Air 10/19/17 05:15 98 26 97/59 (72) 94 Room Air 10/19/17 05:00 88 16 91/64 (73) 92 Nasal Cannula 2.00 10/19/17 04:45 106 15 107/74 (85) 90 Nasal Cannula 2.00 10/19/17 04:38 87 10/19/17 04:30 96 17 109/76 (87) 92 Nasal Cannula 2.00 10/19/17 04:15 94 18 110/69 (83) 93 Nasal Cannula 2.00 10/19/17 04:00 105 23 104/80 (88) 93 Nasal Cannula 2.00 10/19/17 03:45 98 Nasal Cannula 2.00 10/19/17 03:45 92 16 110/81 (91) 97 Nasal Cannula 2.00 10/19/17 03:30 97.6 10/19/17 03:30 98 18 114/77 (89) 96 Nasal Cannula 2.00 10/19/17 03:15 93 18 96/65 (75) 96 Nasal Cannula 2.00 10/19/17 03:00 93 16 95/63 (74) 97 Nasal Cannula 2.00 10/19/17 02:45 86 17 82/57 (65) 96 Nasal Cannula 2.00 10/19/17 02:30 92 16 106/80 (89) 96 Nasal Cannula 2.00 10/19/17 02:15 87 16 127/92 (104) 96 Nasal Cannula 2.00 10/19/17 02:00 93 18 111/71 (84) 94 Nasal Cannula 2.00 10/19/17 01:45 99 18 110/84 (93) 95 Nasal Cannula 2.00 10/19/17 01:30 91 17 111/83 (92) 96 Nasal Cannula 2.00 10/19/17 01:15 94 18 99/62 (74) 97 Nasal Cannula 2.00 10/19/17 01:00 107 10/19/17 01:00 107 18 99/83 (88) 95 Nasal Cannula 2.00 10/19/17 00:45 107 17 106/75 (85) 96 Nasal Cannula 2.00 10/19/17 00:30 105 18 116/83 (94) 94 Nasal Cannula 2.00 10/19/17 00:15 105 21 112/79 (90) 95 Nasal Cannula 2.00 10/19/17 00:10 95 Nasal Cannula 2.00 10/19/17 00:05 97.3 10/19/17 00:00 97 19 97/61 (73) 95 Nasal Cannula 2.00 10/18/17 23:45 113 19 116/72 (87) 95 Nasal Cannula 2.00 10/18/17 23:30 109 18 92/61 (71) 96 Nasal Cannula 2.00 10/18/17 23:15 107 19 111/74 (86) 96 Nasal Cannula 2.00 10/18/17 23:00 126 17 111/82 (92) 98 Nasal Cannula 2.00 10/18/17 22:52 106 98/57 10/18/17 22:45 114 18 98/57 (71) 97 Nasal Cannula 2.00 10/18/17 22:30 133 9 116/69 (85) 97 Nasal Cannula 2.00 10/18/17 22:15 133 39 127/78 (94) 98 Nasal Cannula 2.00 10/18/17 22:15 Nasal Cannula 2.00 10/18/17 22:00 135 11 112/67 (82) 98 Nasal Cannula 2.00 10/18/17 21:45 117 8 97/80 (86) 97 Nasal Cannula 2.00 10/18/17 21:30 129 14 114/82 (93) 97 Nasal Cannula 2.00 10/18/17 21:15 131 33 121/83 (96) 99 Nasal Cannula 2.00 10/18/17 21:12 99 Nasal Cannula 2.00 10/18/17 21:00 121 35 124/62 (82) 99 Nasal Cannula 2.00 10/18/17 20:58 97.6 130 20 111/78 (89) 99 Nasal Cannula 2.00 10/18/17 20:43 129 10/18/17 20:20 98.2 119 20 108/82 (106) 97 Room Air 2.00 10/18/17 18:29 98.2 160 20 121/99 97 2.00 10/18/17 17:40 98.2 160 20 121/99 (106) 97 Nasal Cannula 2.00 I & O 10/19/17 07:00 Intake Total 2060 ml Output Total 1650 ml Balance 410 ml General Appearance: No Apparent Distress, WD/WN, Other HEENT: PERRL/EOMI, TMs Normal Neck: Full Range of Motion, Normal Inspection Respiratory: Normal Breath Sounds, No Accessory Muscle Use, No Respiratory Distress Cardiovascular: Irregularly Irregular, Tachycardia Capillary Refill: Less Than 3 Seconds Gastrointestinal: non tender, soft Extremity: Normal Capillary Refill, Normal Inspection Neurologic/Psychiatric: Alert, Oriented x3 Skin: Normal Color, Warm/Dry Results Lab Laboratory Tests 10/18/17 18:00 10/19/17 03:30 Assessment/Plan Assessment/Plan Afib RVR -Cardiology following Possible ADELIA -out patient testing. I will see pt 1-2wks after discharge and order PSG at that time. Tobacco use -education 254 MARIBELL PERAZA DO Oct 19, 2017 07:48
--- NOTE | 2017-10-19 08:01 | Diagnostic Imaging Report ---
INDICATION: Cardiac dysrhythmia 0356 hours Comparison is made to the study of 10/07/2017. Heart size and pulmonary vascularity are within normal limits. Linear atelectasis and/or scarring is noted in the lung bases. There is no consolidation, pneumothorax or other change. Left anterior chest wall dual-chamber cardiac pacemaker remains in stable position. IMPRESSION: Mild linear atelectasis and/or scarring in both lungs without other evidence of acute abnormality. Dictated by: Dictated on workstation # [id number]
[2017-10-19] MEDS ORDERED: POTA20TA15 PO (08:20)
[2017-10-19] MEDS ORDERED: APIX5TAB PO (08:20)
[2017-10-19] MEDS ORDERED: FURO40TA4 PO (08:20)
[2017-10-19] MEDS: NS IV 1000 ML 1,000 ML IV SCH ×3 (09:06→23:55)
[2017-10-19] MEDS: APIXABAN 5 MG (ELIQUIS) TABLET PO SCH ×2 (09:11→20:29)
[2017-10-19] MEDS ORDERED: proPOfol 200 MG/20 ML (DIPRIVAN) VIAL IV ONE (10:12)
[2017-10-19] MEDS ORDERED: NS IV 500 ML 500 ML ONE (10:12)
[2017-10-19] MEDS ORDERED: MIDAZOLAM 5 MG/5 ML (VERSED) VIAL ONE (10:12)
[2017-10-19] MEDS ORDERED: AMIODARONE IV NR (10:17)
[2017-10-19] MEDS ORDERED: LIDOCAINE 2% VISCOUS 15 ML UDC ONE (10:18)
[2017-10-19] MEDS: meTOprolol TARTRATE 50 MG (LOPRESSOR) TAB PO SCH ×2 (10:28→20:29)
--- NOTE | 2017-10-19 10:55 | Progress Note-Standard ---
Standard Progress Note Progress Notes/Assess & Plan Time Seen by Provider: 10:30 Final Diagnosis Consulted for sedation for cardioversion in ICU 11. Pts history and consent gathered. Supplies at bedside,monitors on. Propofol 120mg IV total. Tolerated procedure well. Report to RN care assumed. ASA 3. PIERRE DIAZ CRNA Oct 19, 2017 10:55
--- NOTE | 2017-10-19 11:09 | Consultation-Cardiology ---
HPI-Cardiology Cardiology Consultation: Date of Consultation 10/19/17 Date of Admission Attending Physician Antonio Ricketts MD Admitting Physician Mike Gilman MD Consulting Physician Clay KIRBY MD HPI: Time Seen by Provider: 09:45 Chief Complaint: Atrial fibrillation with rapid ventricular rate This is a 47-year-old gentleman with history of nonischemic cardiomyopathy. He was treated with optimal medical therapy for over 3 months. There was some improvement in LV ejection fraction however even after more than 3 months of optimal medical therapy ejection fraction was still around 30 percent therefore a dual-chamber ICD was placed for primary prevention of sudden cardiac . For the first 3 months the patient was on a LifeVest. The patient also has history of atrial fibrillation. Initially cardioversion was unsuccessful. However on the day of the ICD we performed a transesophageal echocardiogram assisted cardioversion and he was successfully converted to sinus rhythm. Patient tolerated the procedure well and did not have any complication. He was discharged. I saw him in the office for follow-up and he was in sinus rhythm with no cardiac complaints. He presented yesterday with atrial fibrillation with rapid ventricular rate and multiple ICD shocks. He was started on Esmolol infusion. Review of Systems-Cardiology Review of Systems Constitutional: No As described under HPI, No no symptoms reported, No chills, No fever, No lightheadedness, No malaise, No tiredness, No weight loss, No weight gain, No other Eyes: No As described under HPI, No no symptoms reported, No blindness, No blurred vision, No contact lenses, No drainage, No decreased acuity, No foreign body sensation, No glasses, No inflammation, No pain, No photophobia, No previous injury, No shadows, No tunnel vision, No other, No vision change Ears/Nose/Throat: No As described under HPI, No no symptoms reported, No chronic hearing loss, No epistaxis, No ear discharge, No ear pain, No loose teeth, No mouth pain, No mouth swelling, No nasal drainage, No nose pain, No recent hearing loss, No throat pain, No throat swelling, No ulcerations, No other Respiratory: No no symptoms reported, No As described under HPI, No cough, No orthopnea, No shortness of breath, No SOB with excertion, No SOB at rest, No stridor, No wheezing, No other Cardiovascular: No no symptoms reported, No As described under HPI, No chest pain, No edema, irregular heart rate, No lightheadedness, palpitations, No syncope, No other Gastrointestinal: No no symptoms reported, No As described under HPI, No abdomen distended, No abdominal pain, No blood streaked bowels, No constipation , No diarrhea, No difficulty swallowing, No nausea, No poor appetite, No poor fluid intake, No rectal bleeding, No vomiting, No other, No nausea/vomiting/ diarrhea, No stool coloration changes Genitourinary: No no symptoms reported, No As described under HPI, No burning, No dysuria, No discharge, No frequency, No flank pain, No hematuria, No incontinence, No pain, No urgency, No other, No urine frequency changes, No urine coloration changes Musculoskeletal: No no symptoms reported, No As describe under HPI, No back pain, No gout, No joint pain, No joint swelling, No muscle pain, No muscle stiffness, No neck pain, No other Skin: No no symptoms reported, No As described under HPI, No change in color, No change in hair/nails, No dryness, No lesions, No lumps, No rash, No other, No skin related problems, No ulcerations, No rash on exposed areas, No ulcerations on exposed areas Psychiatric/Neurological: No no symptoms reported, No As described under HPI, No anxiety, No depression, No emotional problems, No headache, No numbness, No pre-existing deficit, No seizure, No tingling, No tremors, No weakness, No other , No focal weakness, No syncope Hematologic: No no symptoms reported, No As described under HPI, No anemia, No blood clots, No easy bleeding, No easy bruising, No swollen glands, No other, No bleeding abnormalities HUS-Yjiyxt-Dnhqmk Hx Patient Social History Alcohol Use: Occasionally Uses Recreational Drug Use: No Smoking Status: Current Everyday Smoker Type Used: Cigarettes Recent Foreign Travel: No Recent Infectious Disease Expo: No Physical Abuse Screen: No Sexual Abuse: No Immunizations Up To Date Date of Influenza Vaccine: May 03, 2017 Past Medical History PMH As described under Assessment. Allergies and Home Medications Allergies Coded Allergies: Penicillins (Verified Allergy, Unknown, "LONG AGO DON'T REMEMBER REACTION ", 09/17/06) Home Medications Apixaban 5 Mg Tablet, 5 MG PO BID, (Reported) Furosemide 40 Mg Tablet, 40 MG PO DAILY, (Reported) Lisinopril 10 Mg Tablet, 20 MG PO DAILY, (Reported) TAKES 2 (10MG) TABLETS Metoprolol Tartrate 100 Mg Tablet, 100 MG PO BID, (Reported) Multivitamin 1 Each Tablet, 1 TAB PO DAILY, (Reported) Omeprazole 20 Mg Capsule.dr, 20 MG PO DAILY, (Reported) Potassium Chloride 20 Meq Tab.er.prt, 40 MEQ PO DAILY, (Reported) TAKES 2 (20MEQ) TABLETS Thyroid,Pork 120 Mg Tablet, 120 MG PO DAILY, (Reported) Patient Home Medication List Home Medication List Reviewed: Yes Physical Exam-Cardiology Physical Exam Vital Signs/I&O Vital Sign - Last 12Hours 10/18/17 10/18/17 10/18/17 10/19/17 23:15 23:30 23:45 00:00 Pulse 107 109 113 97 Resp 19 18 19 19 B/P (MAP) 111/74 (86) 92/61 (71) 116/72 (87) 97/61 (73) Pulse Ox 96 96 95 95 O2 Delivery Nasal Cannula Nasal Cannula Nasal Cannula Nasal Cannula O2 Flow Rate 2.00 2.00 2.00 2.00 10/19/17 10/19/17 10/19/17 10/19/17 00:05 00:10 00:15 00:30 Temp 97.3 Pulse 105 105 Resp 21 18 B/P (MAP) 112/79 (90) 116/83 (94) Pulse Ox 95 95 94 O2 Delivery Nasal Cannula Nasal Cannula Nasal Cannula O2 Flow Rate 2.00 2.00 2.00 10/19/17 10/19/17 10/19/17 10/19/17 00:45 01:00 01:00 01:15 Pulse 107 107 107 94 Resp 17 18 18 B/P (MAP) 106/75 (85) 99/83 (88) 99/62 (74) Pulse Ox 96 95 97 O2 Delivery Nasal Cannula Nasal Cannula Nasal Cannula O2 Flow Rate 2.00 2.00 2.00 10/19/17 10/19/17 10/19/17 10/19/17 01:30 01:45 02:00 02:15 Pulse 91 99 93 87 Resp 17 18 18 16 B/P (MAP) 111/83 (92) 110/84 (93) 111/71 (84) 127/92 (104) Pulse Ox 96 95 94 96 O2 Delivery Nasal Cannula Nasal Cannula Nasal Cannula Nasal Cannula O2 Flow Rate 2.00 2.00 2.00 2.00 10/19/17 10/19/17 10/19/17 10/19/17 02:30 02:45 03:00 03:15 Pulse 92 86 93 93 Resp 16 17 16 18 B/P (MAP) 106/80 (89) 82/57 (65) 95/63 (74) 96/65 (75) Pulse Ox 96 96 97 96 O2 Delivery Nasal Cannula Nasal Cannula Nasal Cannula Nasal Cannula O2 Flow Rate 2.00 2.00 2.00 2.00 10/19/17 10/19/17 10/19/17 10/19/17 03:30 03:30 03:45 03:45 Temp 97.6 Pulse 98 92 Resp 18 16 B/P (MAP) 114/77 (89) 110/81 (91) Pulse Ox 96 97 98 O2 Delivery Nasal Cannula Nasal Cannula Nasal Cannula O2 Flow Rate 2.00 2.00 2.00 10/19/17 10/19/17 10/19/17 10/19/17 04:00 04:15 04:30 04:38 Pulse 105 94 96 87 Resp 23 18 17 B/P (MAP) 104/80 (88) 110/69 (83) 109/76 (87) Pulse Ox 93 93 92 O2 Delivery Nasal Cannula Nasal Cannula Nasal Cannula O2 Flow Rate 2.00 2.00 2.00 10/19/17 10/19/17 10/19/17 10/19/17 04:45 05:00 05:15 05:30 Pulse 106 88 98 95 Resp 15 16 26 15 B/P (MAP) 107/74 (85) 91/64 (73) 97/59 (72) 103/67 (79) Pulse Ox 90 92 94 94 O2 Delivery Nasal Cannula Nasal Cannula Room Air Room Air O2 Flow Rate 2.00 2.00 10/19/17 10/19/17 10/19/17 10/19/17 05:45 06:00 06:15 06:30 Pulse 100 101 103 111 Resp 17 12 22 24 B/P (MAP) 110/74 (86) 124/90 (101) 123/82 (96) 117/76 (90) Pulse Ox 90 95 93 94 O2 Delivery Room Air Room Air Room Air Room Air 3/2710/19/17 10/19/17 10/19/17 06:45 06:59 07:00 08:00 Pulse 124 129 140 106 Resp 22 19 12 B/P (MAP) 106/75 (85) 117/75 (89) 110/79 (89) Pulse Ox 93 93 94 O2 Delivery Room Air Room Air Room Air 10/19/17 10/19/17 09:00 10:00 Pulse 144 122 Resp 14 21 B/P (MAP) 123/73 (90) 107/72 (84) Pulse Ox 97 95 O2 Delivery Room Air Room Air Intake and Output 10/19/17 00:00 Intake Total 1450 ml Output Total 600 ml Balance 850 ml Capillary Refill : Less Than 3 Seconds Constitutional: No appears stated age, AAO x 3, No apparent distress, No PERRL , No well-developed, No well-nourished, No other HEENT: No PERRL, No normal ENT inspection, No TMs normal, No pharynx normal, No scleral icterus (R), No scleral icterus (L), No pale conjunctivae (R), No pale conjunctivae (L), No photophobia, No TM abnormal (R), No TM abnormal (L), No pharyngeal erythema, No tonsillar exudate, No other, No discharge, No EOMI, No hearing is well preserved, No hard of hearing, No oral hygience is good, No ulceration, No xanthelasmas are seen Neck: No non-tender, No full range of motion, No supple, No normal inspection, No carotid bruit, No limited range of motion, No lymphadenopathy (R), No lymphadenopathy (L), No tender lateral, No tender midline, No thyromegaly, No other, carotid pulses are 2 + bilaterally, No with good upstrokes Respiratory: No accessory muscle use, No respiratory distress, No chest tender , No chest expansion is symmetric, No chest is bilaterally symmetric, No lungs clear to percussion, No lungs clear to auscultation, No crackles, No rhonchi, No rales, No stridor, No wheezing, No pleural rub, No other Cardiovascular: No regular rate-rhythm, irregularly irregular, No extra beats, No parasternal heave is noted, No JVD, No edema, No bradycardia, tachycardia, No point of maximal impulse, No cardiac thrills are palpable, S1 and S2, No gallop/S3, No gallop/S4, No diastolic murmur, No systolic murmur, No friction rub, No click, No other Gastrointestinal: No tender, No soft, No round, No distended, No pulsatile mass , No organomegaly, No guarding, No rebound, No tenderness, No hernia, No mass, No audible bowel sounds, No abnormal bowel sounds, No abdominal bruits, No spleenomegaly, No other Rectal: deferred Extremities: No normal range of motion, No non-tender, No normal inspection, No pedal edema, No calf tenderness, No normal capillary refill, No pelvis stable , No calf tenderness, No inflammation, No pedal edema, No slow capillary refill , No swelling, No other, No abrasion, No clubbing, No cyanosis, No ecchymosis, No laceration, No no lower extremity edema bilateral, No significant edema, No tenderness, No wound Neurologic/Psychiatric: No metal mixer II-XII nml as tested, No no motor/sensory deficits, alert, normal mood/affect, oriented x 3, No abnormal cerebellar tests , No abnormal metal mixer II-XII, No abnormal gait, No aphasia, No EOM palsy, No facial droop, No motor weakness, No sensory deficit, No depressed affect, No disoriented x 3, No other, No grossly intact, power is 5/5 both on sides Skin: No normal color, No warm/dry, No cyanosis, No cool, No diaphoresis, No damp, No ecchymosis, No jaundice, No mottled, No pallor, No rash, No tattoos/ piercings, No ulcerations, No rash on exposed areas, No ulcerations on exposed areas, No other Lymphatic: No no adenopathy, No axilla node tender (R), No axilla node tender ( L), No inguinal node tender (R), No inguinal node tender (L), No other Data Review Labs Laboratory Tests 10/18/17 18:00: White Blood Count 9.1, Red Blood Count 5.49, Hemoglobin 16.5, Hematocrit 47, Mean Corpuscular Volume 85, Mean Corpuscular Hemoglobin 30, Mean Corpuscular Hemoglobin Concent 35, Red Cell Distribution Width 12.7, Platelet Count 179, Mean Platelet Volume 11.2H, Neutrophils (%) (Auto) 55, Lymphocytes (%) (Auto) 29 , Monocytes (%) (Auto) 10, Eosinophils (%) (Auto) 6, Basophils (%) (Auto) 0, Neutrophils # (Auto) 5.0, Lymphocytes # (Auto) 2.6, Monocytes # (Auto) 0.9, Eosinophils # (Auto) 0.6H, Basophils # (Auto) 0.0, Urine Color YELLOW, Urine Clarity CLEAR, Urine pH 6.5, Urine Specific Whipple 1.015L, Urine Protein 1+H, Urine Glucose (UA) NEGATIVE, Urine Ketones NEGATIVE, Urine Nitrite NEGATIVE, Urine Bilirubin NEGATIVE, Urine Urobilinogen NORMAL, Urine Leukocyte Esterase NEGATIVE, Urine RBC (Auto) NEGATIVE, Urine RBC NONE, Urine WBC NONE, Urine Squamous Epithelial Cells RARE, Urine Crystals NONE, Urine Bacteria NONE, Urine Casts NONE, Urine Mucus NEGATIVE, Urine Culture Indicated NO, Sodium Level 137, Potassium Level 4.1, Chloride Level 103, Carbon Dioxide Level 28, Anion Gap 6, Blood Urea Nitrogen 13, Creatinine 0.82, Estimat Glomerular Filtration Rate > 60 , BUN/Creatinine Ratio 16, Glucose Level 182H, Calcium Level 8.3L, Magnesium Level 2.1, Total Bilirubin 0.5, Aspartate Amino Transf (AST/SGOT) 22, Alanine Aminotransferase (ALT/SGPT) 22, Alkaline Phosphatase 111, Troponin I < 0.30, Total Protein 6.2L, Albumin 3.8, Thyroid Stimulating Hormone (TSH) 0.19L, Free Thyroxine 0.90, Digoxin Level < 0.30L 10/19/17 03:30: White Blood Count 7.0, Red Blood Count 5.41, Hemoglobin 16.3, Hematocrit 47, Mean Corpuscular Volume 86, Mean Corpuscular Hemoglobin 30, Mean Corpuscular Hemoglobin Concent 35, Red Cell Distribution Width 12.8, Platelet Count 163, Mean Platelet Volume 10.8H, Neutrophils (%) (Auto) 49, Lymphocytes (%) (Auto) 35 , Monocytes (%) (Auto) 8, Eosinophils (%) (Auto) 8, Basophils (%) (Auto) 0, Neutrophils # (Auto) 3.5, Lymphocytes # (Auto) 2.4, Monocytes # (Auto) 0.6, Eosinophils # (Auto) 0.5H, Basophils # (Auto) 0.0, Sodium Level 139, Potassium Level 4.1, Chloride Level 106, Carbon Dioxide Level 26, Anion Gap 7, Blood Urea Nitrogen 11, Creatinine 0.72, Estimat Glomerular Filtration Rate > 60, BUN/ Creatinine Ratio 15, Glucose Level 106H, Calcium Level 8.4L, Magnesium Level 1.9 , Phosphorus Level 4.1 ECG Impression ECG Initial ECG Impression: Atrial Fibrillation w/RVR A/P-Cardiology Assessment/Admission Diagnosis Atrial fibrillation with rapid ventricular rate, Multiple ICD shocks, Nonischemic cardiomyopathy Plan Multiple shocks: Device interrogation revealed atrial fibrillation with rapid ventricular rate in the VF zone resulted in inappropriate ICD shock. The VF zone was set at 200 bpm which will now be increased to 232 BPM and we will add a monitored VT zone. We will also return on reactive ATP for the atrial lead and atrial fibrillation discriminators. Atrial fibrillation with rapid ventricular rate: Bolus amiodarone and amiodarone infusion. Give metoprolol 100 mg and gradually taper off esmolol. We may have to increase metoprolol 200 mg 3 times a day. We tried to cardiovert the patient however it was unsuccessful. We will retry again tomorrow morning after giving amiodarone overnight. The patient may require by mouth amiodarone as an outpatient as well. I briefly discussed atrial fibrillation ablation as well. Nonischemic cardiomyopathy: Euvolemic and not in congestive heart failure. We will continue beta spenser, IZABELLA inhibitor. 60 minutes were spent taking care of the patient. Thank you for your consultation. Please call me if you have any questions. Maria D Kirby MD, FACP, FACC, FSCAI, FHRS, CCDS Interventional Cardiology Cardiac Electrophysiology Vascular Medicine and Endovascular Interventions Clinical Quality Measures AMI/AHF: ASA po Prior to arrival: No DVT/VTE Risk/Contraindication: Risk Factor Score Per Nursin RFS Level Per Nursing on Admit: 3=High Clay KIRBY MD Oct 19, 2017 11:09 am
--- NOTE | 2017-10-19 11:10 | Cardioversion ---
Cardioversion PROCEDURE PHYSICIAN: Maria D Kirby MD DATE OF PROCEDURE: 10/19/17 DIRECT EXTERNAL ELECTRICAL CARDIOVERSION: Indications: Atrial Fibrillation with rapid ventricular rate Preoperative diagnoses: Atrial Fibrillation with rapid ventricular rate Postoperative diagnosis: Sinus rhythm, Successful Electrical Cardioversion History: Anesthesia: By Anesthesia services Complications: None Specimen: None Contrast: 0 Flouroscopy: none Procedure Details: The patient was brought the clinical laboratory manager after informed consent was taken, all the risks and complications were explained including the risk of stroke. Electrical cardioversion was carried out with anesthesia support with propofol. 2 shocks were performed first was at 120 J and second was at 150 J which was unsuccessful. Conclusions: 1.Unsuccessful Cardioversion. 2. Continue amiodarone infusion to tomorrow morning. Will repeat cardioversion in the morning. Maria D Kirby MD, RS, CCDS Cardiac Electrophysiology Clay KIRBY MD Oct 19, 2017 11:10 am
[2017-10-19] MEDS: AMIODARONE IV SOLUTION 200 ML IV SCH ×2 (14:13→22:16)
--- NOTE | 2017-10-19 14:32 | History & Physical-Hospitalist ---
History of Present Illness HPI/Chief Complaint The patient is a 47-year-old white male with previously documented nonischemic cardiomyopathy. He has been in atrial fibrillation previous to this admission. He had the placement of a pacer defibrillator on 10/07. He states that he was defibrillated at that time and subsequently had been in sinus rhythm until yesterday. He presented to the emergency room with atrial fibrillation and rapid ventricular response. His defibrillator was interrogated and apparently showed that he had 6 defibrillation events. He only remembered 4. Parenthetically he stated that he always wondered what it would be like but from the first discharge he was sure that this was defibrillation. This morning he had 2 attempts at cardioversion which were unsuccessful. His rate is better controlled at this time. Dr. Kirby has placed him on an amiodarone drip with the intentions of repeating the defibrillation tomorrow. The patient has no specific complaints at this time. Source: patient Exam Limitations: no limitations Date Seen 10/19/17 Time Seen by Provider: 14:27 Attending Physician Antonio Ingram MD PCP Mike Gilman MD Referring Physician Date of Admission Oct 18, 2017 at 20:05 Home Medications & Allergies Home Medications Reviewed patient Home Medication Reconciliation performed by pharmacy medication reconciliations motion picture camera lens technician and/or nursing. Patients Allergies have been reviewed. Allergies Allergies Coded Allergies Penicillins (Verified Allergy, Unknown, "LONG AGO DON'T REMEMBER REACTION", 14/02) Past Guzyibl-Wrzgla-Hmiict Hx Past Med/Social Hx: Reviewed Nursing Past Med/Soc Hx Patient Social History Alcohol Use: Occasionally Uses Number of Drinks Today: AA Alcohol Beverage of Choice: Beer Recreational Drug Use: No Smoking Status: Current Everyday Smoker Type Used: Cigarettes Physical Abuse Screen: No Sexual Abuse: No Recent Foreign Travel: No Contact w/other who traveled: No Recent Hopitalizations: Yes (09/2017) Recent Infectious Disease Expo: No Immunizations Up To Date Pediatric: No Date of Influenza Vaccine: May 03, 2017 Seasonal Allergies Seasonal Allergies: No Past Medical History Surgeries: Defibrillator, Orthopedic Currently Using CPAP: No Currently Using BIPAP: No Cardiac: Hypertension Reproductive: No Sexually Transmitted Disease: No HIV/AIDS: No Gastrointestinal: Gastroesophageal Reflux Endocrine: Hyperthyroidism, Hypothyroidsim Loss of Vision: Denies Hearing Impairment: Denies History of Blood Disorders: No Adverse Reaction to Blood Meyer: No Family History CAD Under 55 Years Old Review of Systems Constitutional: see HPI EENTM: no symptoms reported Respiratory: no symptoms reported Cardiovascular: see HPI, palpitations, other (multiple ICD discharges) Gastrointestinal: no symptoms reported Genitourinary: no symptoms reported Musculoskeletal: no symptoms reported Skin: no symptoms reported Psychiatric/Neurological: No Symptoms Reported Physical Exam Physical Exam Vital Signs Vital Signs - First Documented 10/18/17 17:40 Temp 98.2 Pulse 160 Resp 20 B/P (MAP) 121/99 (106) Pulse Ox 97 O2 Delivery Nasal Cannula O2 Flow Rate 2.00 Capillary Refill : Less Than 3 Seconds General Appearance: No Apparent Distress, WD/WN Eyes: Bilateral Eye Normal Inspection HEENT: Normal ENT Inspection Neck: Full Range of Motion, Normal Inspection, Non Tender, Supple, Carotid Bruit Respiratory: Chest Non Tender, Lungs Clear, Normal Breath Sounds, No Accessory Muscle Use, No Respiratory Distress Cardiovascular: Irregularly Irregular Gastrointestinal: Normal Bowel Sounds Back: Normal Inspection, No CVA Tenderness, No Vertebral Tenderness Extremity: Normal Capillary Refill, Normal Inspection, Normal Range of Motion, Non Tender, No Calf Tenderness, No Pedal Edema Neurologic/Psychiatric: Alert, Oriented x3, No Motor/Sensory Deficits, Normal Mood/Affect Skin: Normal Color, Warm/Dry Lymphatic: No Adenopathy Results Results/Procedures Labs Laboratory Tests 10/18/17 18:00 10/19/17 03:30 Patient resulted labs reviewed. Assessment/Plan Admission Diagnosis Atrial fibrillation with rapid ventricular response. 2.nonischemic cardiomyopathy with ejection fraction of approximately 30 percent. 3.multiple discharges from his ICD Admission Status: Observation Assessment and Plan Amiodarone drip and seconds attempted cardioversion tomorrow. Clinical Quality Measures AMI/AHF: ASA po Prior to arrival: No DVT/VTE Risk/Contraindication: Risk Factor Score Per Nursin RFS Level Per Nursing on Admit: 3=High ANTONIO INGRAM MD Oct 19, 2017 14:32
[2017-10-19] MEDS ORDERED: meTOprolol TARTRATE 50 MG (LOPRESSOR) TAB PO SCH (21:00)
[2017-10-20] VITALS (37 sets, daily range): BP systolic 106–149; BP diastolic 69–103
[2017-10-20 03:59] LABS: BASOPHILS % (AUTO) 0 % (0-10); EOSINOPHILS # (AUTO) 0.6 10^3/uL (0.0-0.3); EOSINOPHILS % (AUTO) 7 % (0-10); HEMATOCRIT 45 % (40-54); HEMOGLOBIN 15.6 G/DL (13.3-17.7); LYMPHOCYTES # (AUTO) 2.6 X 10^3 (1.0-4.0); LYMPHOCYTES % (AUTO) 35 % (12-44); MEAN CORPUSCULAR HEMOGLOBIN 30 PG (25-34); MEAN CORPUSCULAR HGB CONC 35 G/DL (32-36); MEAN CORPUSCULAR VOLUME 86 FL (80-99); MEAN PLATELET VOLUME 10.6 FL (7.4-10.4); MONOCYTES # (AUTO) 0.5 X 10^3 (0.0-1.0); MONOCYTES % (AUTO) 7 % (0-12); NEUTROPHILS # (AUTO) 3.9 X 10^3 (1.8-7.8); NEUTROPHILS % (AUTO) 51 % (42-75); PLATELET COUNT 167 10^3/uL (130-400); RED BLOOD COUNT 5.22 10^6/uL (4.35-5.85); RED CELL DISTRIBUTION WIDTH 12.7 % (10.0-14.5); WHITE BLOOD COUNT 7.6 10^3/uL (4.3-11.0)
[2017-10-20 04:24] LABS: BUN/CREATININE RATIO 12; CALCIUM 8.2 MG/DL (8.5-10.1); CARBON DIOXIDE 25 MMOL/L (21-32); CHLORIDE 107 MMOL/L (98-107); CREATININE SERUM 0.74 MG/DL (0.60-1.30); GFR ESTIMATED > 60; GLUCOSE 103 MG/DL (70-105); MAGNESIUM 1.8 MG/DL (1.8-2.4); PHOSPHORUS 3.9 MG/DL (2.3-4.7); POTASSIUM 3.7 MMOL/L (3.6-5.0); SODIUM 140 MMOL/L (135-145)
--- NOTE | 2017-10-20 05:31 | Pulmonary Progress Note ---
Subjective Time Seen by Provider: 05:29 Subjective/Events-last exam Pt is still in Afib s/p failed cardioversion. Exam Exam Vital Signs Date Time Temp Pulse Resp B/P (MAP) Pulse Ox O2 Delivery O2 Flow Rate FiO2 10/20/17 03:50 98 Room Air 10/20/17 03:15 76 17 132/89 (103) 94 Room Air 10/20/17 03:00 79 16 117/83 (94) 96 Room Air 10/20/17 02:45 81 23 119/85 (96) 94 Room Air 10/20/17 02:30 80 17 124/85 (98) 93 Room Air 10/20/17 02:15 78 17 115/89 (98) 92 Room Air 10/20/17 02:00 77 17 134/87 (103) 93 Room Air 10/20/17 01:45 82 16 123/83 (96) 93 Room Air 10/20/17 01:30 78 17 119/84 (96) 93 Room Air 10/20/17 01:15 77 24 121/83 (96) 93 Room Air 10/20/17 01:00 76 20 119/87 (98) 94 Room Air 10/20/17 01:00 76 10/20/17 00:45 84 20 106/92 (97) 95 Room Air 10/20/17 00:30 81 10 123/84 (97) 96 Room Air 10/20/17 00:15 84 17 115/86 (96) 93 Room Air 10/20/17 00:00 81 26 112/80 (91) 91 Room Air 10/19/17 23:52 97.6 10/19/17 23:51 82 122/83 10/19/17 23:50 95 Room Air 10/19/17 23:45 82 16 122/83 (96) 95 Room Air 10/19/17 23:30 89 17 113/77 (89) 93 Room Air 10/19/17 23:15 85 20 118/77 (91) 95 Room Air 10/19/17 23:00 98 29 108/62 (77) 97 Room Air 10/19/17 22:45 89 25 134/85 (101) 95 Room Air 10/19/17 22:30 92 34 124/84 (97) 93 Room Air 10/19/17 22:15 80 11 119/76 (90) 94 Room Air 10/19/17 22:00 90 18 118/76 (90) 92 Room Air 10/19/17 21:45 97 19 121/74 (90) 93 Room Air 10/19/17 21:30 98 22 98/75 (83) 94 Room Air 10/19/17 21:15 112 24 115/68 (84) 96 Room Air 10/19/17 21:00 96 18 120/75 (90) 95 Room Air 10/19/17 20:45 96 19 143/78 (99) 96 Room Air 10/19/17 20:30 102 21 131/78 (95) 96 Room Air 10/19/17 20:15 103 16 129/91 (104) 96 Room Air 10/19/17 20:00 90 18 123/82 (96) 98 Room Air 10/19/17 19:50 96 Room Air 10/19/17 19:45 118 11 131/76 (94) 93 Room Air 10/19/17 19:30 96 22 119/81 (94) 96 Room Air 10/19/17 19:15 110 10 124/78 (93) 96 Room Air 10/19/17 19:00 97.3 96 22 120/71 (87) 95 Room Air 10/19/17 19:00 97 10/19/17 18:00 92 15 127/79 (95) 94 Room Air 10/19/17 17:00 79 13 131/81 (98) 96 Room Air 10/19/17 16:43 98.8 10/19/17 16:00 84 13 124/85 (98) 95 Room Air 10/19/17 16:00 Room Air 10/19/17 15:00 95 13 128/82 (97) 96 Room Air 10/19/17 14:17 96 129/76 10/19/17 14:00 105 20 111/71 (84) 96 Room Air 10/19/17 13:00 89 10/19/17 13:00 89 18 105/68 (80) 93 Room Air 10/19/17 12:00 80 19 118/81 (93) 95 Room Air 10/19/17 12:00 Room Air 10/19/17 12:00 97.4 Room Air 10/19/17 11:00 86 15 119/71 (87) 96 Room Air 10/19/17 10:00 122 21 107/72 (84) 95 Room Air 10/19/17 09:00 144 14 123/73 (90) 97 Room Air 10/19/17 08:00 Room Air 10/19/17 08:00 106 12 110/79 (89) 94 Room Air 10/19/17 08:00 98.5 Room Air 10/19/17 07:00 140 19 117/75 (89) 93 Room Air 10/19/17 06:59 129 10/19/17 06:45 124 22 106/75 (85) 93 Room Air 10/19/17 06:30 111 24 117/76 (90) 94 Room Air 10/19/17 06:15 103 22 123/82 (96) 93 Room Air 10/19/17 06:00 101 12 124/90 (101) 95 Room Air 10/19/17 05:45 100 17 110/74 (86) 90 Room Air 10/19/17 05:30 95 15 103/67 (79) 94 Room Air I & O 10/20/17 07:00 Intake Total 4683 ml Output Total 3100 ml Balance 1583 ml General Appearance: No Apparent Distress, WD/WN HEENT: Normal ENT Inspection Neck: Full Range of Motion, Normal Inspection, Non Tender, Supple, Carotid Bruit Respiratory: Chest Non Tender, Lungs Clear, Normal Breath Sounds, No Accessory Muscle Use, No Respiratory Distress Cardiovascular: Irregularly Irregular Capillary Refill: Less Than 3 Seconds Gastrointestinal: non tender, soft Extremity: Normal Capillary Refill, Normal Inspection, Normal Range of Motion, Non Tender, No Calf Tenderness, No Pedal Edema Neurologic/Psychiatric: Alert, Oriented x3, No Motor/Sensory Deficits, Normal Mood/Affect Skin: Normal Color, Warm/Dry Lymphatic: No Adenopathy Results Lab Laboratory Tests 10/18/17 18:00 10/19/17 03:30 10/20/17 03:20 Assessment/Plan Assessment/Plan Afib RVR -Cardiology following -s/p failed cardioversion- plan for repeat today -Currently on Esmolol and Amio gtt Possible ADELIA -out patient testing. I will see pt 1-2wks after discharge and order PSG at that time. Tobacco use -education 232 MARIBELL PERAZA DO Oct 20, 2017 05:31
[2017-10-20] MEDS: APIXABAN 5 MG (ELIQUIS) TABLET PO SCH (08:32)
[2017-10-20] MEDS: meTOprolol TARTRATE 50 MG (LOPRESSOR) TAB PO SCH (08:33)
[2017-10-20] MEDS ORDERED: MIDAZOLAM 2 MG/2 ML (VERSED) VIAL ONE (08:52)
[2017-10-20] MEDS ORDERED: proPOfol 200 MG/20 ML (DIPRIVAN) VIAL IV ONE (08:52)
--- NOTE | 2017-10-20 09:14 | Anesthesia-Procedure Note ---
Procedures/Interventions Procedure Start/Stop/Diagnosis Date of Procedure: Oct 20, 2017 Start Time: 08:56 Referring Physician: Kofi Brief History A-fib Stop Time: 09:03 KELLY/Cardioversion Anesthesia Type: MAC ASA Class: 3 Medications Propofol, 60 mg, Versed 2 mg Monitors and Equipment: BP Cuff - Right, Continuous EKG, End Tidal CO2, IV, Pulse Oximeter READING,ADEEL Rogers CRNA Oct 20, 2017 09:14
--- NOTE | 2017-10-20 09:15 | Anesthesia-General Post-Op ---
MAC Patient Condition Mental Status/LOC: Same as Preop Cardiovascular: Satisfactory Nausea/Vomiting: Absent Respiratory: Satisfactory Pain: Controlled Complications: Absent Post Op Complications Complications None Follow Up Care/Instructions Patient Instructions None needed. Anesthesiology Discharge Order Discharge Order Patient is doing well, no complaints, stable vital signs, no apparent adverse anesthesia problems. No complications reported per nursing. ADEEL CUEVAS CRNA Oct 20, 2017 09:15
[2017-10-20] MEDS ORDERED: AMIODARONE 200 MG (CORDARONE) TAB PO SCH (09:43)
--- NOTE | 2017-10-20 09:50 | Diagnostic Imaging Report ---
INDICATION: Atrial fibrillation. TIME OF EXAMINATION: 03:03 a.m. COMPARISON: Correlation is made with prior study from one day earlier. FINDINGS: The heart size is stable. Cardiac defibrillator remains in place. Lungs are hyperinflated consistent with COPD. No infiltrates are seen. No effusion or pneumothorax is identified. IMPRESSION: Stable chest. No acute features detected. Dictated by: Dictated on workstation # [id number]
--- NOTE | 2017-10-20 10:00 | Cardioversion ---
Cardioversion PROCEDURE PHYSICIAN: Maria D Kirby MD DATE OF PROCEDURE: 10/20/17 DIRECT EXTERNAL ELECTRICAL CARDIOVERSION: Indications: Atrial Fibrillation with controlled ventricular rate Preoperative diagnoses: Atrial Fibrillation with controlled ventricular rate Postoperative diagnosis: Sinus rhythm, Successful Electrical Cardioversion History: Anesthesia: By Anesthesia services Complications: None Specimen: None Contrast: 0 Flouroscopy: none Procedure Details: The patient was brought the mobile home laborer after informed consent was taken, all the risks and complications were explained including the risk of stroke. Electrical cardioversion was carried out with anesthesia support with propofol. 200 joules of synchronized shock was delivered through external patches which promptly restored sinus rhythm. The patient tolerated the procedure well. Conclusions: 1.Successful Cardioversion. 2.Continue oral anticoagulation and rate controlling agent. 3.Follow up in office in 7 days. Maria D Kirby MD, FHRS, CCDS Cardiac Electrophysiology Clay KIRBY MD Oct 20, 2017 10:00
--- NOTE | 2017-10-20 10:00 | Cardiology Progress Note ---
Cardiology SOAP Progress Note Subjective: Still in atrial fibrillation. Objective: I&O/Vital Signs Vital Sign - Last 12Hours 10/19/17 10/19/17 10/19/17 10/20/17 23:50 23:51 23:52 00:00 Temp 97.6 Pulse 82 81 Resp 26 B/P (MAP) 122/83 112/80 (91) Pulse Ox 95 91 O2 Delivery Room Air Room Air 10/20/17 10/20/17 10/20/17 10/20/17 00:15 00:30 00:45 01:00 Pulse 84 81 84 76 Resp 17 10 20 B/P (MAP) 115/86 (96) 123/84 (97) 106/92 (97) Pulse Ox 93 96 95 O2 Delivery Room Air Room Air Room Air 10/20/17 10/20/17 10/20/17 10/20/17 01:00 01:15 01:30 01:45 Pulse 76 77 78 82 Resp 20 24 17 16 B/P (MAP) 119/87 (98) 121/83 (96) 119/84 (96) 123/83 (96) Pulse Ox 94 93 93 93 O2 Delivery Room Air Room Air Room Air Room Air 10/20/17 10/20/17 10/20/17 10/20/17 02:00 02:15 02:30 02:45 Pulse 77 78 80 81 Resp 17 17 17 23 B/P (MAP) 134/87 (103) 115/89 (98) 124/85 (98) 119/85 (96) Pulse Ox 93 92 93 94 O2 Delivery Room Air Room Air Room Air Room Air 10/20/17 10/20/17 10/20/17 10/20/17 03:00 03:15 03:30 03:45 Pulse 79 76 73 76 Resp 16 17 17 23 B/P (MAP) 117/83 (94) 132/89 (103) 129/88 (102) 126/87 (100) Pulse Ox 96 94 93 94 O2 Delivery Room Air Room Air Room Air Room Air 10/20/17 10/20/17 10/20/17 10/20/17 03:50 04:00 04:15 04:30 Pulse 81 78 79 Resp 18 21 17 B/P (MAP) 128/96 (107) 118/92 (101) 116/71 (86) Pulse Ox 98 95 94 93 O2 Delivery Room Air Room Air Room Air Room Air 10/20/17 10/20/17 10/20/17 10/20/17 04:45 05:00 05:15 05:30 Pulse 80 79 76 83 Resp 26 25 24 18 B/P (MAP) 118/84 (95) 129/76 (93) 132/83 (99) 108/89 (95) Pulse Ox 91 92 92 91 O2 Delivery Room Air Room Air Room Air Room Air 10/20/17 10/20/17 10/20/17 10/20/17 05:45 06:00 06:15 06:30 Pulse 74 80 75 74 Resp 18 16 15 24 B/P (MAP) 122/81 (95) 121/88 (99) 123/86 (98) 131/89 (103) Pulse Ox 94 93 93 94 O2 Delivery Room Air Room Air Room Air Room Air 10/20/17 10/20/17 10/20/17 10/20/17 06:45 07:00 07:00 08:00 Pulse 85 77 77 Resp 14 9 B/P (MAP) 123/88 (100) 118/86 (97) Pulse Ox 94 95 98 O2 Delivery Room Air Room Air Room Air 10/20/17 10/20/17 10/20/17 10/20/17 08:00 09:00 09:04 10:00 Temp 97.5 Pulse 87 80 80 68 Resp 20 16 14 B/P (MAP) 134/94 (107) 149/103 (118) 135/83 (100) Pulse Ox 95 96 97 O2 Delivery Room Air Room Air Room Air Intake and Output 10/20/17 00:00 Intake Total 3350 ml Output Total 2250 ml Balance 1100 ml Weight (Pounds): 209 Weight (Ounces): 6.0 Weight (Calculated Kilograms): [id number] Constitutional: No appears stated age, AAO x 3, No apparent distress, No PERRL , No well-developed, No well-nourished, No other Respiratory: No accessory muscle use, No respiratory distress, No chest tender , No chest expansion is symmetric, No chest is bilaterally symmetric, No lungs clear to percussion, No lungs clear to auscultation, No crackles, No rhonchi, No rales, No stridor, No wheezing, No pleural rub, No other Cardiovascular: No regular rate-rhythm, irregularly irregular, No extra beats, No parasternal heave is noted, No JVD, No edema, No bradycardia, tachycardia, No point of maximal impulse, No cardiac thrills are palpable, S1 and S2, No gallop/S3, No gallop/S4, No diastolic murmur, No systolic murmur, No friction rub, No click, No other Gastrointestional: No tender, No soft, No round, No distended, No pulsatile mass, No organomegaly, No guarding, No rebound, No tenderness, No hernia, No mass, No audible bowel sounds, No abnormal bowel sounds, No abdominal bruits, No spleenomegaly, No other Extremities: No normal range of motion, No non-tender, No normal inspection, No pedal edema, No calf tenderness, No normal capillary refill, No pelvis stable , No calf tenderness, No inflammation, No pedal edema, No slow capillary refill , No swelling, No other, No abrasion, No clubbing, No cyanosis, No ecchymosis, No laceration, No no lower extremity edema bilateral, No significant edema, No tenderness, No wound Neurologic/Psychiatric: No practice performance manager II-XII nml as tested, No no motor/sensory deficits, alert, normal mood/affect, oriented x 3, No abnormal cerebellar tests , No abnormal practice performance manager II-XII, No abnormal gait, No aphasia, No EOM palsy, No facial droop, No motor weakness, No sensory deficit, No depressed affect, No disoriented x 3, No other, No grossly intact, power is 5/5 both on sides Skin: No normal color, No warm/dry, No cyanosis, No cool, No diaphoresis, No damp, No ecchymosis, No jaundice, No mottled, No pallor, No rash, No tattoos/ piercings, No ulcerations, No rash on exposed areas, No ulcerations on exposed areas, No other Results/Procedures: Labs Laboratory Tests 10/20/17 03:20: White Blood Count 7.6, Red Blood Count 5.22, Hemoglobin 15.6, Hematocrit 45, Mean Corpuscular Volume 86, Mean Corpuscular Hemoglobin 30, Mean Corpuscular Hemoglobin Concent 35, Red Cell Distribution Width 12.7, Platelet Count 167, Mean Platelet Volume 10.6H, Neutrophils (%) (Auto) 51, Lymphocytes (%) (Auto) 35 , Monocytes (%) (Auto) 7, Eosinophils (%) (Auto) 7, Basophils (%) (Auto) 0, Neutrophils # (Auto) 3.9, Lymphocytes # (Auto) 2.6, Monocytes # (Auto) 0.5, Eosinophils # (Auto) 0.6H, Basophils # (Auto) 0.0, Sodium Level 140, Potassium Level 3.7, Chloride Level 107, Carbon Dioxide Level 25, Anion Gap 8, Blood Urea Nitrogen 9, Creatinine 0.74, Estimat Glomerular Filtration Rate > 60, BUN/ Creatinine Ratio 12, Glucose Level 103, Calcium Level 8.2L, Phosphorus Level 3.9 , Magnesium Level 1.8 Microbiology 10/18/17 MRSA Screen - Final, Complete MRSA not isolated A/P: Assessment/Dx: Atrial fibrillation with controlled ventricular rate, Multiple ICD shocks, Nonischemic cardiomyopathy Plan: Multiple shocks: Device interrogation revealed atrial fibrillation with rapid ventricular rate in the VF zone resulted in inappropriate ICD shock. The VF zone was set at 200 bpm which will now be increased to 232 BPM and we will add a monitored VT zone. We will also return on reactive ATP for the atrial lead and atrial fibrillation discriminators. Atrial fibrillation with rapid ventricular rate: Discontinue amiodarone infusion and start by mouth amiodarone. Esmolol discontinued. Increase metoprolol to 150 mg twice a day. Ventricular rate much better controlled. Still in atrial fibrillation. Unsuccessful cardioversion yesterday. Repeat cardioversion today. Nonischemic cardiomyopathy: Euvolemic and not in congestive heart failure. We will continue beta spenser, IZABELLA inhibitor. Thank you for your consultation. Please call me if you have any questions. Maria D Kirby MD, FACP, FACC, FSCAI, FHRS, CCDS Interventional Cardiology Cardiac Electrophysiology Vascular Medicine and Endovascular Interventions Clinical Quality Measures AMI/AHF: ASA po Prior to arrival: Clay Ratliff MD Oct 20, 2017 10:00
[2017-10-20] MEDS: NS IV 1000 ML 1,000 ML IV SCH (10:10)
--- NOTE | 2017-10-20 11:52 | Progress Note-Hospitalist ---
Progress Note HPI/CC on Admission The patient is a 47-year-old white male with previously documented nonischemic cardiomyopathy. He has been in atrial fibrillation previous to this admission. He had the placement of a pacer defibrillator on 10/07. He states that he was defibrillated at that time and subsequently had been in sinus rhythm until yesterday. He presented to the emergency room with atrial fibrillation and rapid ventricular response. His defibrillator was interrogated and apparently showed that he had 6 defibrillation events. He only remembered 4. Parenthetically he stated that he always wondered what it would be like but from the first discharge he was sure that this was defibrillation. This morning he had 2 attempts at cardioversion which were unsuccessful. His rate is better controlled at this time. Dr. Kirby has placed him on an amiodarone drip with the intentions of repeating the defibrillation tomorrow. The patient has no specific complaints at this time. Progress Notes/Assess & Plan Date Seen 10/20/17 Time Seen by Provider: 10:15 Assessment & Plan setup technician: Amiodarone cardioversion worked; pulse in 60s Dr. Kirby will be called to discuss his plan Started on Amiodarone po : Pt Interview: Pt states he feels the same as he always has. Pt confirms AF event in 06/11. Pt states defibrillator was placed 10/07/17. Pt states this event occurred on Physical exam stable. Lungs CTAB. Pt was informed that I will confer with cardiology on DC and medications Pt states he needs to use the toilet AFVSS, Pleasant, O x 3 RRR, CTAB No rales noted Assessment: AF w/RVR Pacemaker status Plan: DC today or tomorrow Confer with cardiology Scribed by Mariella Solano under direct supervision of Dr. Alyx Pinto. ALYX PINTO DO Oct 20, 2017 11:52
[2017-10-20] MEDS ORDERED: AMIO100T4 PO (14:14)
[2017-10-20] MEDS ORDERED: METO100T12 PO (14:14)
== END 2017-10-20 14:40 | disposition home or self-care (01) | DRG 310 ==
LOC: EDUNIT# 17:29 → ER 17:30 → ICU 20:05
PROVIDERS: ADMIT Internal Medicine; ATTEND Internal Medicine
PROC: 5A2204Z Restoration of Cardiac Rhythm, Single (ICD-10-PCS; principal; 2017-10-19)
DX: I48.0 Paroxysmal atrial fibrillation (principal); I42.9 Cardiomyopathy, unspecified; I10 Essential (primary) hypertension; E03.9 Hypothyroidism, unspecified; K21.9 Gastro-esophageal reflux disease without esophagitis; F17.210 Nicotine dependence, cigarettes, uncomplicated; Z95.810 Presence of automatic (implantable) cardiac defibrillator
CPT/HCPCS: 36415; 71045; 80048; 80053; 80162; 81000; 83735; 84100; 84439; 84443; 84484; 85025; 87081; 93005; 96361; 96365; 96366; 96375

== ENCOUNTER → 2017-11-08 | Outpatient (CLI) | payer OTHER ==
[~2017-11-08] MED LIST changes: +AMIO100T4 PO; -AMIO200T2 PO; +AMIO200T4 PO; +FURO40TA4 PO; +POTA20TA15 PO; +RT-ALBUTEROL SULF 2.5 MG/3 ML PRE-MIX VIAL INH ONE
== END ==
LOC: RT 07:57
PROVIDERS: ATTEND Nurse Practitioner Family
DX: R06.00 Dyspnea, unspecified (principal); I48.91 Unspecified atrial fibrillation; Z72.0 Tobacco use
CPT/HCPCS: 94060; 94726; 94729

== ENCOUNTER 2017-12-21 15:37 | Outpatient (CLI) | payer OTHER ==
[~2017-12-21 15:37] MED LIST changes: +AMIO200T2 PO; -AMIO200T4 PO; -RT-ALBUTEROL SULF 2.5 MG/3 ML PRE-MIX VIAL INH ONE
== END 2017-12-21 15:45 | disposition home or self-care (01) ==
LOC: SLEEP 15:37
PROVIDERS: ATTEND Nurse Practitioner Family
DX: G47.10 Hypersomnia, unspecified (principal); G47.50 Parasomnia, unspecified

== ENCOUNTER → 2018-03-31 | Outpatient (CLI) | payer OTHER ==
[~2018-03-31] MED LIST changes: -AMIO200T2 PO; +AMIO200T4 PO
== END ==
LOC: CARD 08:31
PROVIDERS: ATTEND Internal Medicine Interventional Cardiology
DX: I49.1 Atrial premature depolarization (principal); I42.0 Dilated cardiomyopathy; E66.9 Obesity, unspecified; G47.9 Sleep disorder, unspecified; Z72.0 Tobacco use
CPT/HCPCS: 93306

== ENCOUNTER → 2018-08-31 | Outpatient (CLI) | payer OTHER ==
[~2018-08-31] MED LIST changes: +CATHETER FLUSH 10 ML SYR IV PRN; +IOHEXOL 350 MG/ML 100 ML (OMNIPAQUE 350) VIAL IV ONE; +NS 100 ML (IVPB) BAG IV ONE; +RECEIVED CONTRAST (Hold Metformin) IV SCH
--- NOTE | 2018-08-31 10:20 | Diagnostic Imaging Report ---
PROCEDURE: CT chest with contrast only. TECHNIQUE: Multiple contiguous axial images were obtained through the chest after administration of intravenous contrast. INDICATION: Shortness of air. History of asthma. COMPARISON: None. FINDINGS: Cardiomediastinal structures show normal heart size. There is small pericardial effusion; likely within physiologic limits. Left-sided AICD is noted. There is moderate calcified coronary atherosclerosis, particularly involving the left main coronary artery and left anterior descending coronary artery. No pathologically enlarged or morphologically abnormal adenopathy is seen within the mediastinum, jait, nor axilla on either side. Evaluation of lung pitts demonstrates no focal consolidation, pleural effusion, nor pneumothorax. There are scattered areas of scarring and/or atelectasis within the bilateral mid and lower lung pitts. There is minimal centrilobular air trapping within the bilateral apices. No suspicious pulmonary nodules or masses are identified. Bony structures show no acute osseous abnormalities. Included portions of the upper abdomen are unremarkable. IMPRESSION: 1. Minimal centrilobular air trapping within the bilateral apices. Correlation for underlying obstructive pulmonary disease is recommended. 2. No acute cardiopulmonary process. 3. Moderate calcified coronary atherosclerotic disease. Correlation with underlying risk factors is recommended. Dictated by: Dictated on workstation # [id number]
== END ==
LOC: RAD 08:34
PROVIDERS: ATTEND Nurse Practitioner Family
DX: J44.9 Chronic obstructive pulmonary disease, unspecified (principal); I25.10 Atherosclerotic heart disease of native coronary artery without angina pectoris; G47.33 Obstructive sleep apnea (adult) (pediatric); I42.0 Dilated cardiomyopathy; I48.0 Paroxysmal atrial fibrillation; G47.50 Parasomnia, unspecified; Z72.0 Tobacco use
CPT/HCPCS: 71260

== ENCOUNTER 2018-09-03 20:52 | Observation (INO) | payer OTHER ==
[~2018-09-03] VITALS: Ht 177.8 cm; Wt 107.5 kg
[~2018-09-03 20:52] MED LIST changes: -CATHETER FLUSH 10 ML SYR IV PRN; -IOHEXOL 350 MG/ML 100 ML (OMNIPAQUE 350) VIAL IV ONE; -NS 100 ML (IVPB) BAG IV ONE; -RECEIVED CONTRAST (Hold Metformin) IV SCH
[2018-09-03] MEDS ORDERED: ALBU18HF2 (21:00)
[2018-09-03] MEDS ORDERED: LOSA50TA63 (21:00)
[2018-09-03] MEDS ORDERED: ASPIRIN 81 MG CHEW (CHILDREN'S ASA) PO ONE (21:00)
[2018-09-03] MEDS ORDERED: MONT10TA24 (21:00)
[2018-09-03 21:09] LABS: BASOPHILS % (AUTO) 0 % (0-10); EOSINOPHILS # (AUTO) 0.2 10^3/uL (0.0-0.3); EOSINOPHILS % (AUTO) 2 % (0-10); HEMATOCRIT 49 % (40-54); HEMOGLOBIN 16.8 G/DL (13.3-17.7); LYMPHOCYTES # (AUTO) 3.4 X 10^3 (1.0-4.0); LYMPHOCYTES % (AUTO) 31 % (12-44); MEAN CORPUSCULAR HEMOGLOBIN 30 PG (25-34); MEAN CORPUSCULAR HGB CONC 35 G/DL (32-36); MEAN CORPUSCULAR VOLUME 85 FL (80-99); MEAN PLATELET VOLUME 11.5 FL (7.4-10.4); MONOCYTES % (AUTO) 9 % (0-12); NEUTROPHILS # (AUTO) 6.4 X 10^3 (1.8-7.8); NEUTROPHILS % (AUTO) 58 % (42-75); PLATELET COUNT 192 10^3/uL (130-400); WHITE BLOOD COUNT 11.1 10^3/uL (4.3-11.0)
[2018-09-03 21:19] LABS: INR 1.1 (0.8-1.4)
[2018-09-03] MEDS ORDERED: NS IV 1000 ML 1,000 ML IV ONE (21:21)
[2018-09-03] MEDS ORDERED: DILTIAZEM 125 MG/25 ML IV (CARDIZEM) IV ONE (21:23)
[2018-09-03 21:28] LABS: ALANINE AMINOTRANSFERASE 61 U/L (0-55); ALBUMIN 4.4 GM/DL (3.2-4.5); ALKALINE PHOSPHATASE 98 U/L (40-136); BILIRUBIN,TOTAL 0.6 MG/DL (0.1-1.0); BUN/CREATININE RATIO 15; CALCIUM 8.6 MG/DL (8.5-10.1); CARBON DIOXIDE 26 MMOL/L (21-32); CHLORIDE 100 MMOL/L (98-107); CREATININE SERUM 1.27 MG/DL (0.60-1.30); GFR ESTIMATED > 60; GLUCOSE 236 MG/DL (70-105); POTASSIUM 3.7 MMOL/L (3.6-5.0); SODIUM 138 MMOL/L (135-145); TOTAL PROTEIN 7.1 GM/DL (6.4-8.2)
[2018-09-03] MEDS ORDERED: DILTIAZEM INJECTION 125 MG in NS (IVPB) 100 ML IV SCH (21:30)
[2018-09-03] MEDS ORDERED: DILTIAZEM 25 MG/5 ML INJ (CARDIZEM) VIAL IVP ONE (21:30)
[2018-09-03 21:34] LABS: MYOGLOBIN SERUM 41.7 NG/ML (10.0-92.0)
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
[2018-09-03 21:39] VITALS: BP 129/82
--- NOTE | 2018-09-03 22:00 | NUR ---
PT RESTING IN BY DENIES NEEDS AT THIS TIME.
--- NOTE | 2018-09-03 22:05 | Diagnostic Imaging Report ---
EXAMINATION: Chest radiograph, portable AP view. DATE: September 03, 2018 at 2113 hours. INDICATION: 48-year-old male, chest pain. COMPARISON: October 12, 2017. FINDINGS: There is a left-sided cardiac assist device with leads. The leads appear intact. Stable overall appearance of the cardiomediastinal silhouette. There is no identified pneumothorax. There is no large pleural effusion. There are mild linear opacities in the left midlung, likely relating to subsegmental atelectasis. There is no additional new focal airspace consolidation. There are technical limitations of the exam. IMPRESSION: 1. Mild linear opacities in the left midlung likely relating to subsegmental atelectasis. 2. No identified interval acute cardiopulmonary abnormality. Dictated by: Dictated on workstation # [id number]
--- NOTE | 2018-09-03 22:30 | NUR ---
PT RESTING IN BED, DENIES NEEDS, RATE ADJUSTED ON CARDIZEM GTT.
[2018-09-03] MEDS ORDERED: DILTIAZEM 30 MG (CARDIZEM) TAB PO STA (23:50)
--- NOTE | 2018-09-04 00:10 | NUR ---
PT RESTING IN BED, DENIES NEEDS/COMPLAINTS, RATE ADJUSTMENT ON CARDIZEM GTT.
--- NOTE | 2018-09-04 00:34 | NUR ---
CARDIZEM GTT STOPPED, PT DENIES NEEDS AT THIS TIME.
--- NOTE | 2018-09-04 01:31 | NUR ---
PT RESTING IN BED DENIES NEEDS AT THIS TIME.
--- OUTSIDE RECORDS SUMMARY | 2018-09-04 02:22 | XMS REPORT | Continuity of Care Document ---
Author Author [facility] Organization [facility] Address Unknown Phone Unavailable Allergies Active Description Code Type Severity Reaction Onset Reported/Identified Relationship to Patient Clinical Status Yes Penicillins [id number] Drug Allergy Unknown "LONG AGO DON'T 09/17/2006 [...] HATFIELD MD Ot E03.9 HYPOTHYROIDISM, UNSPECIFIED 06/05/2017 IASMAR HATFIELD MD Ot E80.6 OTHER DISORDERS OF BILIRUBIN METABOLISM 06/05/2017 ISAMAR HATFIELD MD Ot F17.210 NICOTINE DEPENDENCE, CIGARETTES, UNCOMPL 06/05/2017 ISAMAR HATFIELD MD Ot I11.0 HYPERTENSIVE HEART DISEASE WITH HEART FA 06/05/2017 ISAMAR HATFIELD MD, Ot I25.10 ATHSCL HEART DISEASE OF [place] CORONARY 06/05/2017 ISAMAR HATFIELD MD Ot I42.9 [...] MD Ot I25.10 ATHSCL HEART DISEASE OF [place] CORONARY 06/06/2017 ISAMAR HATFIELD MD Ot I42.9 CARDIOMYOPATHY, UNSPECIFIED 06/06/2017 ISAMAR HATFIELD MD Ot I48.91 UNSPECIFIED ATRIAL FIBRILLATION 06/06/2017 ISMAAR HATFIELD MD Ot I50.21 ACUTE SYSTOLIC (CONGESTIVE) [...] MD Ot I25.10 ATHSCL HEART DISEASE OF [place] CORONARY 06/06/2017 ISAMAR HATFIELD MD Ot I42.9 [...] FIBRILLATION 06/14/2017 Clay TRUJILLO MD Ot Z79.01 ALF (CURRENT) USE OF ANTICOAGULANT 06/14/2017 Clay TRUJILLO [...] FIBRILLATION 07/05/2017 Clay TRUJILLO MD Ot Z79.01 POWER BRAKE OPERATOR (CURRENT) USE OF ANTICOAGULANT 07/05/2017 Clay TRUJILLO [...] Clay LANG Ot I48.91 UNSPECIFIED ATRIAL FIBRILLATION 10/07/2017 Clay TRUJILLO MD Ot I42.0 DILATED CARDIOMYOPATHY 10/07/2017 Clay TRUJILLO MD Ot I48.0 PAROXYSMAL ATRIAL FIBRILLATION 10/08/2017 CASSANDRA COLLADO, Clay LANG Ot E66.9 OBESITY, UNSPECIFIED 10/08/2017 Clay TRUJILLO MD Ot E78.5 HYPERLIPIDEMIA, UNSPECIFIED 10/08/2017 Clay TRUJILLO MD Ot F17.210 NICOTINE DEPENDENCE, CIGARETTES, UNCOMPL 10/08/2017 Clay TRUJILLO MD Ot I10 ESSENTIAL (PRIMARY) HYPERTENSION 10/08/2017 Clay TRUJILLO MD Ot I34.0 NONRHEUMATIC MITRAL (VALVE) INSUFFICIENC 10/08/2017 Clay TRUJILLO MD Ot I42.0 DILATED CARDIOMYOPATHY 10/08/2017 Clay TRUJILLO MD Ot I48.1 PERSISTENT ATRIAL FIBRILLATION 10/08/2017 Clay TRUJILLO MD Ot I50.20 UNSPECIFIED SYSTOLIC (CONGESTIVE) HEART 10/08/2017 Clay TRUJILLO MD Ot Z68.30 BODY MASS INDEX (BMI) 30.0-30.9, ADULT 10/08/2017 Clay TRUJILLO MD Ot Z79.01 ALF (CURRENT) USE OF ANTICOAGULANT 10/08/2017 Clay TRUJILLO MD Ot Z79.899 OTHER POWER BRAKE OPERATOR (CURRENT) DRUG THERAPY 10/08/2017 Clay TRUJILLO MD Ot Z82.49 FAMILY HX OF ISCHEM HEART DIS AND OTH DI 10/11/2017 Clay TRUJILLO MD Ot E66.9 OBESITY, UNSPECIFIED 10/11/2017 Clay TRUJILLO MD Ot E78.5 HYPERLIPIDEMIA, UNSPECIFIED 10/11/2017 Clay TRUJILLO MD Ot F17.210 NICOTINE DEPENDENCE, CIGARETTES, UNCOMPL 10/11/2017 Clay TRUJILLO MD Ot I10 ESSENTIAL (PRIMARY) HYPERTENSION 10/11/2017 Clay TRUJILLO MD Ot I34.0 NONRHEUMATIC MITRAL (VALVE) INSUFFICIENC 10/11/2017 Clay TRUJILLO MD Ot I42.0 DILATED CARDIOMYOPATHY 10/11/2017 Clay TRUJILLO MD Ot I48.1 PERSISTENT ATRIAL FIBRILLATION 10/11/2017 Clay TRUJILLO MD Ot I50.20 UNSPECIFIED SYSTOLIC (CONGESTIVE) HEART 10/11/2017 Clay TRUJILLO MD Ot Z68.30 BODY MASS INDEX (BMI) 30.0-30.9, ADULT 10/11/2017 Clay TRUJILLO MD Ot Z79.01 POWER BRAKE OPERATOR (CURRENT) USE OF ANTICOAGULANT 10/11/2017 Clay TRUJILLO MD Ot Z79.899 OTHER POWER BRAKE OPERATOR (CURRENT) DRUG THERAPY 10/11/2017 Clay TRUJILLO MD Ot Z82.49 FAMILY HX OF ISCHEM HEART DIS AND OTH DI 10/20/2017 KARISHMA INGRAM MD Ot F17.210 NICOTINE DEPENDENCE, CIGARETTES, UNCOMPL 10/20/2017 KARISHMA INGRAM MD Ot I10 ESSENTIAL (PRIMARY) HYPERTENSION 10/20/2017 KARISHMA INGRAM MD Ot I42.9 CARDIOMYOPATHY, UNSPECIFIED 10/20/2017 KARISHMA INGRAM MD Ot I48.0 PAROXYSMAL ATRIAL FIBRILLATION 10/20/2017 KARISHMA INGRAM MD Ot K21.9 GASTRO-ESOPHAGEAL REFLUX DISEASE WITHOUT 10/20/2017 KARISHMA INGRAM MD Ot Z95.810 PRESENCE OF AUTOMATIC (IMPLANTABLE) CARD 10/20/2017 KARISHMA INGRAM MD Ot E03.9 HYPOTHYROIDISM, UNSPECIFIED 10/20/2017 KARISHMA INGRAM MD Ot F17.210 NICOTINE DEPENDENCE, CIGARETTES, UNCOMPL 10/20/2017 KARISHMA INGRAM MD Ot I10 ESSENTIAL (PRIMARY) HYPERTENSION 10/20/2017 KARISHMA INGRAM MD Ot I42.9 CARDIOMYOPATHY, UNSPECIFIED 10/20/2017 KARISHMA INGRAM MD Ot I48.0 PAROXYSMAL ATRIAL FIBRILLATION 10/20/2017 KARISHMA INGRAM MD Ot K21.9 GASTRO-ESOPHAGEAL REFLUX DISEASE WITHOUT 10/20/2017 KARISHMA INGRAM MD Ot Z95.810 PRESENCE OF AUTOMATIC (IMPLANTABLE) CARD 11/08/2017 CASSANDRA COLLADO, Clay LANG Ot I42.0 DILATED CARDIOMYOPATHY 11/08/2017 Clay TRUJILLO MD Ot I48.0 PAROXYSMAL ATRIAL FIBRILLATION 11/09/2017 ALEX, NAI E CARGO INSPECTOR Ot I48.91 UNSPECIFIED ATRIAL FIBRILLATION 11/09/2017 ALEX, NAI E CARGO INSPECTOR Ot R06.00 DYSPNEA, UNSPECIFIED 11/09/2017 ALDO JOHNSONINE E CARGO INSPECTOR Ot Z72.0 TOBACCO USE 11/09/2017 ALDO JOHNSONINE E CARGO INSPECTOR Ot I48.91 UNSPECIFIED ATRIAL FIBRILLATION 11/09/2017 ALDO JOHNSONINE E CARGO INSPECTOR Ot R06.00 DYSPNEA, UNSPECIFIED 11/09/2017 ALEX, NAI E CARGO INSPECTOR Ot Z72.0 TOBACCO USE 12/09/2017 ALEX, NAI E CARGO INSPECTOR Ot I48.91 UNSPECIFIED ATRIAL FIBRILLATION 12/09/2017 ALEX, NAI E CARGO INSPECTOR Ot R06.00 DYSPNEA, UNSPECIFIED 12/09/2017 ALEX NAI E CARGO INSPECTOR Ot Z72.0 TOBACCO USE 12/21/2017 ALDO JOHNSONINE E CARGO INSPECTOR Ot G47.10 HYPERSOMNIA, UNSPECIFIED 12/21/2017 ALDO JOHNSONINE E CARGO INSPECTOR Ot G47.50 PARASOMNIA, UNSPECIFIED 12/22/2017 NAI JOHNSON APRN Ot G47.10 HYPERSOMNIA, UNSPECIFIED 12/22/2017 NAI JOHNSON APRN Ot G47.50 PARASOMNIA, UNSPECIFIED 01/19/2018 CASSANDRA COLLADO, Clay LANG Ot E66.9 OBESITY, UNSPECIFIED 01/19/2018 CASSANDRA COLLADO, M PRECIOUS Ot E78.5 HYPERLIPIDEMIA, UNSPECIFIED 01/19/2018 CASSANDRA COLLADO, M PRECIOUS Ot I42.0 DILATED CARDIOMYOPATHY 01/19/2018 CASSANDRA COLLADO, M PRECIOUS Ot I48.91 UNSPECIFIED ATRIAL FIBRILLATION 01/19/2018 CASSANDRA COLLADO, M PRECIOUS Ot I42.0 DILATED CARDIOMYOPATHY 01/19/2018 CASSANDRA COLLADO, Clay LANG Ot I48.0 PAROXYSMAL ATRIAL FIBRILLATION 01/19/2018 CASSANDRA COLLADO, M PRECIOUS Ot I42.0 DILATED CARDIOMYOPATHY 01/19/2018 CASSANDRA COLLADO, lCay LANG Ot I48.0 PAROXYSMAL ATRIAL FIBRILLATION 04/04/2018 CASSANDRA COLLADO, Clay LANG Ot E66.9 OBESITY, UNSPECIFIED 04/04/2018 CASSANDRA COLLADO, Clay LANG Ot G47.9 SLEEP DISORDER, UNSPECIFIED 04/04/2018 CASSANDRA COLLADO, M PRECIOUS Ot I42.0 DILATED CARDIOMYOPATHY 04/04/2018 CASSANDRA COLLADO, Clay LANG Ot I49.1 ATRIAL PREMATURE DEPOLARIZATION 04/04/2018 CASSANDRA COLLADO, Clay LANG Ot Z72.0 TOBACCO USE 04/27/2018 CASSANDRA COLLADO, Clay LANG Ot E66.9 OBESITY, UNSPECIFIED 04/27/2018 CASSANDRA COLLADO, Clay LANG Ot G47.9 SLEEP DISORDER, UNSPECIFIED 04/27/2018 CASSANDRA COLLADO, Clay LANG Ot I42.0 DILATED CARDIOMYOPATHY 04/27/2018 Clay TRUJILLO MD Ot I49.1 ATRIAL PREMATURE DEPOLARIZATION 04/27/2018 Clay TRUJILLO MD Ot Z72.0 TOBACCO USE 08/31/2018 NAI JOHNSON APRN Ot G47.33 OBSTRUCTIVE SLEEP APNEA (ADULT) (PEDIATR 08/31/2018 NAI JOHNSON APRN Ot G47.50 PARASOMNIA, UNSPECIFIED 08/31/2018 NAI JOHNSON APRN Ot I25.10 ATHSCL HEART DISEASE OF H[place] CORONARY 08/31/2018 NAI JOHNSON APRN Ot I42.0 DILATED CARDIOMYOPATHY 08/31/2018 NAI JOHNSON APRN Ot I48.0 PAROXYSMAL ATRIAL FIBRILLATION 08/31/2018 NAI JOHNSON APRN Ot J44.9 CHRONIC OBSTRUCTIVE PULMONARY DISEASE, U 08/31/2018 NAI JOHNSON APRN Ot Z72.0 TOBACCO USE Procedures Code Description Performed By Performed On [id number] MEASURE OF CARDIAC SAMPL PRESSURE, L H 06/04/2017 [id number] CHURCH OF CARDIAC RHYTHM, SINGLE 06/04/2017 [id number] FLUOROSCOPY OF MULT COR ART USING L OSM 06/04/2017 [id number] FLUOROSCOPY OF LEFT HEART USING LOW OSMO 06/04/2017 [id number] CHURCH OF CARDIAC RHYTHM, SINGLE 10/19/2017 Results Test Result Range Complete blood count [...] Staphylococcus aureus (MRSA) screening culture NEG NRG Automated blood complete blood count (hemogram) panel - 10/07/17 08:26 Blood leukocytes automated count (number/volume) 9.6 10*3/uL 4.3-11.0 Blood erythrocytes automated count (number/volume) 6.38 10*6/uL 4.35-5.85 Venous blood hemoglobin measurement (mass/volume) 19.0 g/dL 13.3-17.7 Blood hematocrit (volume fraction) 55 % 40-54 Automated erythrocyte mean corpuscular volume 86 [foz_us] 80-99 Automated erythrocyte mean corpuscular hemoglobin (mass per erythrocyte) 30 pg 25-34 Automated erythrocyte mean corpuscular hemoglobin concentration measurement ( mass/volume) 35 g/dL 32-36 Automated erythrocyte distribution width ratio 14.0 % 10.0-14.5 Automated blood platelet count (count/volume) 211 10*3/uL 130-400 Automated blood platelet mean volume measurement 11.5 [foz_us] 7.4-10.4 PT panel in platelet poor plasma by coagulation assay - 10/07/17 08:26 Prothrombin time (PT) in platelet poor plasma by coagulation assay 14.5 s 12.2-14.7 INR in platelet poor plasma or blood by coagulation assay 1.1 0.8-1.4 Activated partial thromboplastin time (aPTT) in platelet poor plasma bycoagulation assay - 10/07/17 08:26 Activated partial thromboplastin time (aPTT) in platelet poor plasma bycoagulation assay 33 s 24-35 Comprehensive metabolic panel - 10/07/17 08:26 Serum or plasma sodium measurement (moles/volume) 141 mmol/L 135-145 Serum or plasma potassium measurement (moles/volume) 4.7 mmol/L 3.6-5.0 Serum or plasma chloride measurement (moles/volume) 102 mmol/L 98-107 Carbon dioxide 30 mmol/L 21-32 Serum or plasma anion gap determination (moles/volume) 9 mmol/L 5-14 Serum or plasma urea nitrogen measurement (mass/volume) 13 mg/dL 7-18 Serum or plasma creatinine measurement (mass/volume) 0.87 mg/dL 0.60-1.30 Serum or plasma urea nitrogen/creatinine mass ratio 15 NRG Serum or plasma creatinine measurement with calculation of estimated glomerular filtration rate > NRG Serum or plasma glucose measurement (mass/volume) 120 mg/dL 70-105 Serum or plasma calcium measurement (mass/volume) 9.9 mg/dL 8.5-10.1 Serum or plasma total bilirubin measurement (mass/volume) 1.5 mg/dL 0.1-1.0 Serum or plasma alkaline phosphatase measurement (enzymatic activity/volume) 97 U/L 40-136 Serum or plasma aspartate aminotransferase measurement (enzymatic activity/ volume) 16 U/L 5-34 Serum or plasma alanine aminotransferase measurement (enzymatic activity/volume ) 18 U/L 0-55 Serum or plasma protein measurement (mass/volume) 7.6 g/dL 6.4-8.2 Serum or plasma albumin measurement (mass/volume) 4.7 g/dL 3.2-4.5 Methicillin resistant Staphylococcus aureus (MRSA) screening culture - 08:26 Methicillin resistant Staphylococcus aureus (MRSA) screening culture NEG NRG Automated blood complete blood count (hemogram) panel - 10/08/17 01:50 Blood leukocytes automated count (number/volume) 10.3 10*3/uL 4.3-11.0 Blood erythrocytes automated count (number/volume) 5.18 10*6/uL 4.35-5.85 Venous blood hemoglobin measurement (mass/volume) 15.6 g/dL 13.3-17.7 Blood hematocrit (volume fraction) 46 % 40-54 Automated erythrocyte mean corpuscular volume 89 [foz_us] 80-99 Automated erythrocyte mean corpuscular hemoglobin (mass per erythrocyte) 30 pg 25-34 Automated erythrocyte mean corpuscular hemoglobin concentration measurement ( mass/volume) 34 g/dL 32-36 Automated erythrocyte distribution width ratio 13.9 % 10.0-14.5 Automated blood platelet count (count/volume) 153 10*3/uL 130-400 Automated blood platelet mean volume measurement 11.4 [foz_us] 7.4-10.4 Comprehensive metabolic panel - 10/08/17 01:50 Serum or plasma sodium measurement (moles/volume) 140 mmol/L 135-145 Serum or plasma potassium measurement (moles/volume) 4.7 mmol/L 3.6-5.0 Serum or plasma chloride measurement (moles/volume) 105 mmol/L 98-107 Carbon dioxide 28 mmol/L 21-32 Serum or plasma anion gap determination (moles/volume) 7 mmol/L 5-14 Serum or plasma urea nitrogen measurement (mass/volume) 17 mg/dL 7-18 Serum or plasma creatinine measurement (mass/volume) 0.84 mg/dL 0.60-1.30 Serum or plasma urea nitrogen/creatinine mass ratio 20 NRG Serum or plasma creatinine measurement with calculation of estimated glomerular filtration rate > NRG Serum or plasma glucose measurement (mass/volume) 97 mg/dL 70-105 Serum or plasma calcium measurement (mass/volume) 8.0 mg/dL 8.5-10.1 Serum or plasma total bilirubin measurement (mass/volume) 1.0 mg/dL 0.1-1.0 Serum or plasma alkaline phosphatase measurement (enzymatic activity/volume) 78 U/L 40-136 Serum or plasma aspartate aminotransferase measurement (enzymatic activity/ volume) 16 U/L 5-34 Serum or plasma alanine aminotransferase measurement (enzymatic activity/volume ) 17 U/L 0-55 Serum or plasma protein measurement (mass/volume) 5.1 g/dL 6.4-8.2 Serum or plasma albumin measurement (mass/volume) 3.5 g/dL 3.2-4.5 Complete blood count (CBC) with automated white blood cell (WBC) differential - 10/18/17 18:00 Blood leukocytes automated count (number/volume) 9.1 10*3/uL 4.3-11.0 Blood erythrocytes automated count (number/volume) 5.49 10*6/uL 4.35-5.85 Venous blood hemoglobin measurement (mass/volume) 16.5 g/dL 13.3-17.7 Blood hematocrit (volume fraction) 47 % 40-54 Automated erythrocyte mean corpuscular volume 85 [foz_us] 80-99 Automated erythrocyte mean corpuscular hemoglobin (mass per erythrocyte) 30 pg 25-34 Automated erythrocyte mean corpuscular hemoglobin concentration measurement ( mass/volume) 35 g/dL 32-36 Automated erythrocyte distribution width ratio 12.7 % 10.0-14.5 Automated blood platelet count (count/volume) 179 10*3/uL 130-400 Automated blood platelet mean volume measurement 11.2 [foz_us] 7.4-10.4 Automated blood neutrophils/100 leukocytes 55 % 42-75 Automated blood lymphocytes/100 leukocytes 29 % 12-44 Blood monocytes/100 leukocytes 10 % 0-12 Automated blood eosinophils/100 leukocytes 6 % 0-10 Automated blood basophils/100 leukocytes 0 % 0-10 Blood neutrophils automated count (number/volume) 5.0 10*3 1.8-7.8 Blood lymphocytes automated count (number/volume) 2.6 10*3 1.0-4.0 Blood monocytes automated count (number/volume) 0.9 10*3 0.0-1.0 Automated eosinophil count 0.6 10*3/uL 0.0-0.3 Automated blood basophil count (count/volume) 0.0 10*3/uL 0.0-0.1 Complete urinalysis with reflex to culture - 10/18/17 18:00 Urine color determination YELLOW NRG Urine clarity determination CLEAR NRG Urine pH measurement by test strip 6.5 5-9 Specific gravity of urine by test strip 1.015 1.016- 1.022 Urine protein assay by test strip, semi-quantitative 1+ NEGATIVE Urine glucose detection by automated test strip NEGATIVE NEGATIVE Erythrocytes detection in urine sediment by light microscopy NEGATIVE NEGATIVE Urine ketones detection by automated test strip NEGATIVE NEGATIVE Urine nitrite detection by test strip NEGATIVE NEGATIVE Urine total bilirubin detection by test strip NEGATIVE NEGATIVE Urine urobilinogen measurement by automated test strip (mass/volume) NORMAL NORMAL Urine leukocyte esterase detection by dipstick NEGATIVE NEGATIVE Automated urine sediment erythrocyte count by microscopy (number/high power field) NONE NRG Automated urine sediment leukocyte count by microscopy (number/high power field ) NONE NRG Bacteria detection in urine sediment by light microscopy NONE NRG Squamous epithelial cells detection in urine sediment by light microscopy RARE NRG Crystals detection in urine sediment by light microscopy NONE NRG Casts detection in urine sediment by light microscopy NONE NRG Mucus detection in urine sediment by light microscopy NEGATIVE NRG Complete urinalysis with reflex to culture NO NRG Comprehensive metabolic panel - 10/18/17 18:00 Serum or plasma sodium measurement (moles/volume) 137 mmol/L 135-145 Serum or plasma potassium measurement (moles/volume) 4.1 mmol/L 3.6-5.0 Serum or plasma chloride measurement (moles/volume) 103 mmol/L 98-107 Carbon dioxide 28 mmol/L 21-32 Serum or plasma anion gap determination (moles/volume) 6 mmol/L 5-14 Serum or plasma urea nitrogen measurement (mass/volume) 13 mg/dL 7-18 Serum or plasma creatinine measurement (mass/volume) 0.82 mg/dL 0.60-1.30 Serum or plasma urea nitrogen/creatinine mass ratio 16 NRG Serum or plasma creatinine measurement with calculation of estimated glomerular filtration rate > NRG Serum or plasma glucose measurement (mass/volume) 182 mg/dL 70-105 Serum or plasma calcium measurement (mass/volume) 8.3 mg/dL 8.5-10.1 Serum or plasma total bilirubin measurement (mass/volume) 0.5 mg/dL 0.1-1.0 Serum or plasma alkaline phosphatase measurement (enzymatic activity/volume) 111 U/L 40-136 Serum or plasma aspartate aminotransferase measurement (enzymatic activity/ volume) 22 U/L 5-34 Serum or plasma alanine aminotransferase measurement (enzymatic activity/volume ) 22 U/L 0-55 Serum or plasma protein measurement (mass/volume) 6.2 g/dL 6.4-8.2 Serum or plasma albumin measurement (mass/volume) 3.8 g/dL 3.2-4.5 Magnesium - 10/18/17 18:00 Magnesium 2.1 mg/dL 1.8-2.4 THYROID STIMULATING HORMONE - 10/18/17 18:00 THYROID STIMULATING HORMONE 0.19 u[iU]/mL 0.35-4.94 Serum or plasma thyroxine (T4) free measurement (mass/volume) - 10/18/17 18:00 Serum or plasma thyroxine (T4) free measurement (mass/volume) 0.90 ng/dL 0.70-1.48 Digoxin - 10/18/17 18:00 Digoxin < ng/mL 0.80-2.00 Serum or plasma troponin i.cardiac measurement (mass/volume) - 10/18/17 18:00 Serum or plasma troponin i.cardiac measurement (mass/volume) < ng/ mL <0.30 Methicillin resistant Staphylococcus aureus (MRSA) screening culture - 20:40 Methicillin resistant Staphylococcus aureus (MRSA) screening culture NEG NRG Complete blood count (CBC) with automated white blood cell (WBC) differential - 10/19/17 03:30 Blood leukocytes automated count (number/volume) 7.0 10*3/uL 4.3-11.0 Blood erythrocytes automated count (number/volume) 5.41 10*6/uL 4.35-5.85 Venous blood hemoglobin measurement (mass/volume) 16.3 g/dL 13.3-17.7 Blood hematocrit (volume fraction) 47 % 40-54 Automated erythrocyte mean corpuscular volume 86 [foz_us] 80-99 Automated erythrocyte mean corpuscular hemoglobin (mass per erythrocyte) 30 pg 25-34 Automated erythrocyte mean corpuscular hemoglobin concentration measurement ( mass/volume) 35 g/dL 32-36 Automated erythrocyte distribution width ratio 12.8 % 10.0-14.5 Automated blood platelet count (count/volume) 163 10*3/uL 130-400 Automated blood platelet mean volume measurement 10.8 [foz_us] 7.4-10.4 Automated blood neutrophils/100 leukocytes 49 % 42-75 Automated blood lymphocytes/100 leukocytes 35 % 12-44 Blood monocytes/100 leukocytes 8 % 0-12 Automated blood eosinophils/100 leukocytes 8 % 0-10 Automated blood basophils/100 leukocytes 0 % 0-10 Blood neutrophils automated count (number/volume) 3.5 10*3 1.8-7.8 Blood lymphocytes automated count (number/volume) 2.4 10*3 1.0-4.0 Blood monocytes automated count (number/volume) 0.6 10*3 0.0-1.0 Automated eosinophil count 0.5 10*3/uL 0.0-0.3 Automated blood basophil count (count/volume) 0.0 10*3/uL 0.0-0.1 Whole blood basic metabolic panel - 10/19/17 03:30 Serum or plasma sodium measurement (moles/volume) 139 mmol/L 135-145 Serum or plasma potassium measurement (moles/volume) 4.1 mmol/L 3.6-5.0 Serum or plasma chloride measurement (moles/volume) 106 mmol/L 98-107 Carbon dioxide 26 mmol/L 21-32 Serum or plasma anion gap determination (moles/volume) 7 mmol/L 5-14 Serum or plasma urea nitrogen measurement (mass/volume) 11 mg/dL 7-18 Serum or plasma creatinine measurement (mass/volume) 0.72 mg/dL 0.60-1.30 Serum or plasma urea nitrogen/creatinine mass ratio 15 NRG Serum or plasma creatinine measurement with calculation of estimated glomerular filtration rate > NRG Serum or plasma glucose measurement (mass/volume) 106 mg/dL 70-105 Serum or plasma calcium measurement (mass/volume) 8.4 mg/dL 8.5-10.1 Serum or plasma phosphate measurement (mass/volume) - 10/19/17 03:30 Serum or plasma phosphate measurement (mass/volume) 4.1 mg/dL 2.3-4.7 Magnesium - 10/19/17 03:30 Magnesium 1.9 mg/dL 1.8-2.4 Complete blood count (CBC) with automated white blood cell (WBC) differential - 10/20/17 03:20 Blood leukocytes automated count (number/volume) 7.6 10*3/uL 4.3-11.0 Blood erythrocytes automated count (number/volume) 5.22 10*6/uL 4.35-5.85 Venous blood hemoglobin measurement (mass/volume) 15.6 g/dL 13.3-17.7 Blood hematocrit (volume fraction) 45 % 40-54 Automated erythrocyte mean corpuscular volume 86 [foz_us] 80-99 Automated erythrocyte mean corpuscular hemoglobin (mass per erythrocyte) 30 pg 25-34 Automated erythrocyte mean corpuscular hemoglobin concentration measurement ( mass/volume) 35 g/dL 32-36 Automated erythrocyte distribution width ratio 12.7 % 10.0-14.5 Automated blood platelet count (count/volume) 167 10*3/uL 130-400 Automated blood platelet mean volume measurement 10.6 [foz_us] 7.4-10.4 Automated blood neutrophils/100 leukocytes 51 % 42-75 Automated blood lymphocytes/100 leukocytes 35 % 12-44 Blood monocytes/100 leukocytes 7 % 0-12 Automated blood eosinophils/100 leukocytes 7 % 0-10 Automated blood basophils/100 leukocytes 0 % 0-10 Blood neutrophils automated count (number/volume) 3.9 10*3 1.8-7.8 Blood lymphocytes automated count (number/volume) 2.6 10*3 1.0-4.0 Blood monocytes automated count (number/volume) 0.5 10*3 0.0-1.0 Automated eosinophil count 0.6 10*3/uL 0.0-0.3 Automated blood basophil count (count/volume) 0.0 10*3/uL 0.0-0.1 Whole blood basic metabolic panel - 10/20/17 03:20 Serum or plasma sodium measurement (moles/volume) 140 mmol/L 135-145 Serum or plasma potassium measurement (moles/volume) 3.7 mmol/L 3.6-5.0 Serum or plasma chloride measurement (moles/volume) 107 mmol/L 98-107 Carbon dioxide 25 mmol/L 21-32 Serum or plasma anion gap determination (moles/volume) 8 mmol/L 5-14 Serum or plasma urea nitrogen measurement (mass/volume) 9 mg/dL 7-18 Serum or plasma creatinine measurement (mass/volume) 0.74 mg/dL 0.60-1.30 Serum or plasma urea nitrogen/creatinine mass ratio 12 NRG Serum or plasma creatinine measurement with calculation of estimated glomerular filtration rate > NRG Serum or plasma glucose measurement (mass/volume) 103 mg/dL 70-105 Serum or plasma calcium measurement (mass/volume) 8.2 mg/dL 8.5-10.1 Serum or plasma phosphate measurement (mass/volume) - 10/20/17 03:20 Serum or plasma phosphate measurement (mass/volume) 3.9 mg/dL 2.3-4.7 Magnesium - 10/20/17 03:20 Magnesium 1.8 mg/dL 1.8-2.4 Encounters ACCT No. Visit Date/Time Discharge Status Pt. Type Provider Facility Loc./Unit Complaint [id number] 08/31/2018 08:34:00 08/31/2018 23:59:59 CLS Outpatient NAI JOHNSON APRN [facility] RAD ADELIA,ASTHMA,COPD [id number] 08/18/2018 13:12:00 08/18/2018 23:59:59 CLS Preadmit NAI JOHNSON APRN [facility] SLEEP PARASOMNIA, UNSPECIFIED, ADELIA [id number] 03/31/2018 08:31:00 03/31/2018 23:59:59 CLS Outpatient Clay TRUJILLO MD [facility] CARD ATRIAL FRIBRILLATION, DILATED CARDIOMYOPATHY [id number] 12/21/2017 15:37:00 12/21/2017 15:45:00 DIS Outpatient NAI JOHNSON APRN [facility] SLEEP G47.10 HYPERSOMNIA [id number] 11/08/2017 07:57:00 11/08/2017 23:59:59 CLS Outpatient NAI JOHNSON APRN [facility] RT Z72.0 TOBACCO USER [id number] 10/18/2017 20:05:00 10/20/2017 14:40:00 DIS Inpatient KARISHMA INGRAM MD [facility] ICU AFIB W RVR [id number] 10/07/2017 08:03:00 10/08/2017 14:15:00 DIS Outpatient Clay TRUJILLO MD [facility] SDC CARDIOMYOPATHY [id number] 10/07/2017 09:30:00 10/07/2017 23:59:59 CLS Preadmit Clay TRUJILLO MD [facility] CATH AFIB [id number] 09/30/2017 08:17:00 09/30/2017 23:59:59 CLS Outpatient CASSANDRA COLLADO, Clay LANG [facility] CATH CARDIOMYOPATHY [id number] 09/08/2017 08:44:00 09/08/2017 23:59:59 CLS Outpatient CASSANDRA COLLADO, Clay LANG [facility] CARD I48.91 AFIB [id number] 06/14/2017 10:55:00 06/14/2017 14:16:00 DIS Outpatient CASSANDRA COLLADO, Clay LANG [facility] CATH AFIB [id number] 06/03/2017 15:42:00 06/06/2017 13:00:00 DIS Inpatient LIU COLLADO, ISAMAR Williamson [facility] ICU AFIB RVR [id number] 06/03/2017 13:47:00 06/03/2017 23:59:59 CLS Outpatient ROBERTO ASKEW MD [facility] RAD I10 E03.9 [id number] 05/13/2017 15:18:00 05/13/2017 23:59:59 CLS Outpatient ROBERTO ASKEW MD [facility] RAD I10 E03.9 R60.9 K21.9 R47.02 R07.9 [id number] 05/05/2017 11:40:00 05/05/2017 23:59:59 CLS Preadmit JERAMIE DOMATILDE S [facility] RAD BILATERAL BREAST ASSYMETRY [id number] 03/05/2015 10:41:00 03/05/2015 12:50:00 DIS Emergency ROSARIO COLLADO, IRAJ Gonzalez [facility] ER CHEST PAIN [id number] 09/04/2018 02:10:00 ACT Inpatient ALBERT COLLADO, CHRIS Thorne [address] [facility]
--- NOTE | 2018-09-04 02:25 | NUR ---
KASEY ARAUJO admitted to room 412-1, with an admitting diagnosis of ATRIAL FLUTTER WITH RVR , on 09/04/18 from ED via WHEEL CHAIR, accompanied by ED STAFF/ SPOUSE.KASEY ARAUJO introduced to surroundings, call light, bed controls, phone, TV, temperature control, lights, meal times, smoking policy, visitor policy, side rail policy, bathrooms and showers. Patient Rights given to patient in the handbook.KASEY ARAUJO verbalizes understanding that [facility] is not responsible for the loss or damage to any personal effects or valuables that are kept in the patients posession during their hospitalization.
[2018-09-04] MEDS ORDERED: NS IV 1000 ML 1,000 ML IV SCH (03:00)
[2018-09-04 03:05] VITALS: BP 93/60
[2018-09-04 04:00] VITALS: BP 93/60
[2018-09-04 05:10] LABS: BASOPHILS % (AUTO) 0 % (0-10); EOSINOPHILS # (AUTO) 0.2 10^3/uL (0.0-0.3); EOSINOPHILS % (AUTO) 3 % (0-10); HEMATOCRIT 44 % (40-54); HEMOGLOBIN 14.6 G/DL (13.3-17.7); LYMPHOCYTES # (AUTO) 2.4 X 10^3 (1.0-4.0); LYMPHOCYTES % (AUTO) 36 % (12-44); MEAN CORPUSCULAR HEMOGLOBIN 29 PG (25-34); MEAN CORPUSCULAR HGB CONC 33 G/DL (32-36); MEAN CORPUSCULAR VOLUME 87 FL (80-99); MEAN PLATELET VOLUME 11.5 FL (7.4-10.4); MONOCYTES # (AUTO) 0.6 X 10^3 (0.0-1.0); MONOCYTES % (AUTO) 9 % (0-12); NEUTROPHILS # (AUTO) 3.4 X 10^3 (1.8-7.8); NEUTROPHILS % (AUTO) 52 % (42-75); PLATELET COUNT 141 10^3/uL (130-400); RED CELL DISTRIBUTION WIDTH 13.7 % (10.0-14.5); WHITE BLOOD COUNT 6.6 10^3/uL (4.3-11.0)
[2018-09-04 05:35] LABS: CHOLESTEROL 143 MG/DL (< 200); HDL CHOLESTEROL 28 MG/DL (40-60); TRIGLYCERIDES 56 MG/DL (<150); VLDL CHOLESTEROL 11 MG/DL (5-40)
[2018-09-04 05:37] LABS: ALANINE AMINOTRANSFERASE 43 U/L (0-55); ALBUMIN 3.4 GM/DL (3.2-4.5); ALKALINE PHOSPHATASE 65 U/L (40-136); BILIRUBIN,TOTAL 0.6 MG/DL (0.1-1.0); BUN/CREATININE RATIO 15; CALCIUM 7.7 MG/DL (8.5-10.1); CARBON DIOXIDE 27 MMOL/L (21-32); CHLORIDE 104 MMOL/L (98-107); GFR ESTIMATED > 60; GLUCOSE 161 MG/DL (70-105); POTASSIUM 4.3 MMOL/L (3.6-5.0); SODIUM 140 MMOL/L (135-145); TOTAL PROTEIN 5.3 GM/DL (6.4-8.2)
[2018-09-04] MEDS: DILTIAZEM 30 MG (CARDIZEM) TAB PO SCH ×2 (06:18→13:27)
[2018-09-04] MEDS ORDERED: FLU QUADRIvalent (5+ YOA) 2018-2019 (AFLURIA) 0.5 ML IM ONE ×2 (07:15→15:13)
[2018-09-04 08:00] VITALS: BP 96/64
[2018-09-04] MEDS ORDERED: APIXABAN 5 MG (ELIQUIS) TABLET PO SCH (09:00)
[2018-09-04 12:00] VITALS: BP 100/68
--- NOTE | 2018-09-04 12:33 | Short Stay Summary ---
History of Present Illness History of Present Illness Reason for visit/HPI 48 years old gentleman with history of paroxysmal atrial fibrillation, history of ICD, has been followed by Dr. Kirby. Started to have palpitation and felt irregular heartbeat early last week, continue to take his medication and took additional metoprolol and amiodarone at home. Continue on oral anticoagulation without skipping any doses. Yesterday he became more tachycardic, heart rate around 150, came into the emergency room for evaluation, started on Cardizem drip which achieved adequate heart rate controlled we switched him to oral Cardizem. I visited with him today, admit to having some palpitation and pressure in his chest. No chest pain. No shortness of breath. No syncope Date of Admission Sep 04, 2018 at 02:10 Date of Discharge Time Seen by Provider: 12:00 Attending Physician Sj Membreno MD Admitting Physician Mike Gilman MD Consult Allergies and Home Medications Allergies Coded Allergies: Penicillins (Verified Allergy, Unknown, "LONG AGO DON'T REMEMBER REACTION ", 09/17/06) Home Medications Amiodarone HCl 100 Mg Tablet, 100 MG PO BID Prescribed by: GI ALLEN on 09/04/18 1310 Apixaban 5 Mg Tablet, 5 MG PO BID, (Reported) Furosemide 40 Mg Tablet, 40 MG PO DAILY, (Reported) Metoprolol Tartrate 100 Mg Tablet, 150 MG PO BID Prescribed by: CORY PARSON on 10/20/17 1414 Multivitamin 1 Each Tablet, 1 TAB PO DAILY, (Reported) Omeprazole 20 Mg Capsule.dr, 20 MG PO DAILY, (Reported) Potassium Chloride 20 Meq Tab.er.prt, 40 MEQ PO DAILY, (Reported) TAKES 2 (20MEQ) TABLETS Thyroid,Pork 120 Mg Tablet, 120 MG PO DAILY, (Reported) Patient Home Medication List Home Medication List Reviewed: Yes Past Ajrphna-Ebjcff-Pxdhmg Hx Patient Social History Marrital Status: Employed/Student: employed Alcohol Use: Occasionally Uses Number of Drinks Today: AA Alcohol Beverage of Choice: Beer Recreational Drug Use: No Smoking Status: Current Everyday Smoker Type Used: Cigarettes 2nd Hand Smoke Exposure: Yes Physical Abuse Screen: No Sexual Abuse: No Recent Foreign Travel: No Contact w/other who traveled: No Recent Hopitalizations: No Recent Infectious Disease Expo: No Immunizations Up To Date Tetanus Booster (TDap): Unknown Pediatric: No Date of Influenza Vaccine: May 03, 2017 Seasonal Allergies Seasonal Allergies: No Surgeries Yes (thyroidectomy, INTRAMEDULLARY NAILING R DISTAL TIBIA WITH C-ARM) Defibrillator, Orthopedic Respiratory Yes Currently Using CPAP: No Currently Using BIPAP: No Cardiovascular Yes (New onset Afib and CHF) Hypertension Neurological No Reproductive System Hx Reproductive Disorders: No Sexually Transmitted Disease: No HIV/AIDS: No Genitourinary No Gastrointestinal Yes Gastroesophageal Reflux Musculoskeletal No Endocrine History of Endocrine Disorders: Yes Endocrine Disorders: Hyperthyroidism, Hypothyroidsim HEENT History of HEENT Disorders: No Loss of Vision: Denies Hearing Impairment: Denies Cancer No Psychosocial History of Psychiatric Problem: No Integumentary History of Skin or Integumenta: No Blood Transfusions History of Blood Disorders: No Adverse Reaction to a Blood Tr: No Family Medical History Significant Family History: CAD Under 55 Years Old Review of Systems Constitutional: see HPI, malaise EENTM: see HPI, no symptoms reported Respiratory: see HPI; No cough; dyspnea on exertion; No hemoptysis, No orthopnea, No phlegm, No short of breath, No stridor, No wheezing, No other Cardiovascular: see HPI, chest pain; No edema, No Hx of Intervention; palpitations; No syncope, No vascular heart diseas, No other Gastrointestinal: no symptoms reported, see HPI Genitourinary: no symptoms reported, see HPI Musculoskeletal: no symptoms reported, see HPI Skin: no symptoms reported, see HPI Psychiatric/Neurological: No Symptoms Reported, See HPI Physical Exam Vital Signs Vital Signs - First Documented 09/03/18 21:39 O2 Flow Rate 2.00 Capillary Refill : Less Than 3 Seconds Height, Weight, BMI Height: 5'10.00" Weight: 236lbs. 15.0oz. [id number]; 34.0 BMI Method:Stated General Appearance: No Apparent Distress, WD/WN Eyes: Bilateral Eye Normal Inspection, Bilateral Eye PERRL, Bilateral Eye EOMI HEENT: PERRL/EOMI, TMs Normal, Normal ENT Inspection, Pharynx Normal Neck: Full Range of Motion, Normal Inspection, Non Tender, Supple, Carotid Bruit Respiratory: Chest Non Tender, Lungs Clear, Normal Breath Sounds, No Accessory Muscle Use, No Respiratory Distress Cardiovascular: No Edema, No Gallop, No JVD, No Murmur, Normal Peripheral Pulses, Irregularly Irregular Gastrointestinal: Normal Bowel Sounds, No Organomegaly, No Pulsatile Mass, Non Tender, Soft Back: Normal Inspection, No CVA Tenderness, No Vertebral Tenderness Extremity: Normal Capillary Refill, Normal Inspection, Normal Range of Motion, Non Tender, No Calf Tenderness, No Pedal Edema Neurologic/Psychiatric: Alert, Oriented x3, No Motor/Sensory Deficits, Normal Mood/Affect Skin: Normal Color, Warm/Dry Lymphatic: No Adenopathy Clinical Quality Measures Admission Status Admission Status: Observation AMI/AHF: ASA po Prior to arrival: No DVT/VTE Risk/Contraindication: Risk Factor Score Per Nursin RFS Level Per Nursing on Admit: 1=Low/No VTE PPX Short Stay Diagnosis Discharge Diagnosis-Short Stay Admission Diagnosis: Atrial fibrillation Palpitation Congestive heart failure, chronic compensated left ventricular systolic dysfunction Hypertension Hyperlipidemia Final Discharge Diagnosis: paroxysmal atrial fibrillation Congestive heart failure, chronic compensated left ventricular systolic dysfunction, nonischemic cardiomyopathy Palpitation Hypertension Conclusion Labs Laboratory Tests 09/03/18 21:00: White Blood Count 11.1H, Red Blood Count 5.70, Hemoglobin 16.8, Hematocrit 49, Mean Corpuscular Volume 85, Mean Corpuscular Hemoglobin 30, Mean Corpuscular Hemoglobin Concent 35, Red Cell Distribution Width 14.0, Platelet Count 192, Mean Platelet Volume 11.5H, Neutrophils (%) (Auto) 58, Lymphocytes (%) (Auto) 31 , Monocytes (%) (Auto) 9, Eosinophils (%) (Auto) 2, Basophils (%) (Auto) 0, Neutrophils # (Auto) 6.4, Lymphocytes # (Auto) 3.4, Monocytes # (Auto) 1.0, Eosinophils # (Auto) 0.2, Basophils # (Auto) 0.0, Prothrombin Time 14.0, INR Comment 1.1, Activated Partial Thromboplast Time 30, Sodium Level 138, Potassium Level 3.7, Chloride Level 100, Carbon Dioxide Level 26, Anion Gap 12, Blood Urea Nitrogen 19H, Creatinine 1.27, Estimat Glomerular Filtration Rate > 60, BUN/Creatinine Ratio 15, Glucose Level 236H, Calcium Level 8.6, Corrected Calcium 8.3L, Magnesium Level 2.0, Total Bilirubin 0.6, Aspartate Amino Transf ( AST/SGOT) 24, Alanine Aminotransferase (ALT/SGPT) 61H, Alkaline Phosphatase 98, Myoglobin 41.7, Troponin I < 0.028, B-Type Natriuretic Peptide 1204.1H, Total Protein 7.1, Albumin 4.4 09/04/18 04:55: White Blood Count 6.6, Red Blood Count 5.05, Hemoglobin 14.6, Hematocrit 44, Mean Corpuscular Volume 87, Mean Corpuscular Hemoglobin 29, Mean Corpuscular Hemoglobin Concent 33, Red Cell Distribution Width 13.7, Platelet Count 141, Mean Platelet Volume 11.5H, Neutrophils (%) (Auto) 52, Lymphocytes (%) (Auto) 36 , Monocytes (%) (Auto) 9, Eosinophils (%) (Auto) 3, Basophils (%) (Auto) 0, Neutrophils # (Auto) 3.4, Lymphocytes # (Auto) 2.4, Monocytes # (Auto) 0.6, Eosinophils # (Auto) 0.2, Basophils # (Auto) 0.0, Sodium Level 140, Potassium Level 4.3, Chloride Level 104, Carbon Dioxide Level 27, Anion Gap 9, Blood Urea Nitrogen 16, Creatinine 1.10, Estimat Glomerular Filtration Rate > 60, BUN/ Creatinine Ratio 15, Glucose Level 161H, Calcium Level 7.7L, Corrected Calcium 8.2L, Total Bilirubin 0.6, Aspartate Amino Transf (AST/SGOT) 17, Alanine Aminotransferase (ALT/SGPT) 43, Alkaline Phosphatase 65, Total Protein 5.3L, Albumin 3.4, Triglycerides Level 56, Cholesterol Level 143, LDL Cholesterol Direct 112, VLDL Cholesterol 11, HDL Cholesterol 28L Conclusion/Plan Paroxysmal atrial fibrillation, had another episode of atrial flutter ablation probably started 4 days ago, has been on Eliquis, I proceeded with electrical cardioversion which was successful, continue on his current medication, had a long discussion about avoiding alcohol Congestive heart failure, nonischemic cardiomyopathy, last echocardiogram in March 2018 showed ejection fraction 40 percent, managed by Dr. Kirby History of cardiac catheterization done in May 2017 showed mild coronary artery disease nonobstructive disease Hypertension, currently borderline hypotensive secondary to medication. Continue to monitor Hyperlipidemia Questionable sleep apnea. Followed by primary care physician GI ALLEN MD Sep 04, 2018 12:33
--- NOTE | 2018-09-04 12:35 | Cardiac Procedure Note-CS/ASA ---
Pre-Procedure Note Pre-Op Procedure Note H&P Reviewed The H&P was reviewed, patient examined and no changes noted. Date H&P Reviewed: Sep 04, 2018 Time H&P Reviewed: 12:35 Conscious Sedation Pre-Proced Time 12:35 ASA Score 3 For ASA 3 and 4: Consider anesthesia and medical clearance. Also, for patients with a history of failed moderate sedation consider anesthesia. Airway Lungs Heart ASA score ASA 1: a normal healthy patient ASA 2: a patient with a mild systemic disease (mid diabetes, controlled hypertension, obesity x ASA 3: a patient with a severe systemic disease that limits activity (angina , COPD, prior Myocardial infarction) ASA 4: a patient with an incapacitating disease that is a constant threat to life (CHF, renal failure) ASA 5: a moribund patient not expected to survive 24 hrs. (ruptured aneurysm) ASA 6: a declared brain- patient whose organs are being harvested. For emergent operations, add the letter E after the classification Mallampati Classification Grade 3 Sedation Plan Analgesia, Amnesia, Plan communicated to team members, Discussed options with patient/fam, Discussed risks with patient/fam The patient is an appropriate candidate to undergo the planned procedure, sedation, and anesthesia. The patient immediately re-assessed prior to indication. GI ALLEN MD Sep 04, 2018 12:35
[2018-09-04] MEDS ORDERED: proPOfol 200 MG/20 ML (DIPRIVAN) VIAL IV ONE (12:40)
[2018-09-04] MEDS ORDERED: MIDAZOLAM 5 MG/5 ML (VERSED) VIAL ONE (12:45)
--- NOTE | 2018-09-04 13:03 | Cardioversion ---
Cardioversion PROCEDURE PHYSICIAN: Gi Reis DATE OF PROCEDURE: 09/04/18 DIRECT EXTERNAL ELECTRICAL CARDIOVERSION: Indications: Atrial Fibrillation with rapid ventricular rate Preoperative diagnoses: Atrial Fibrillation with rapid ventricular rate Postoperative diagnosis: Sinus rhythm, Successful Electrical Cardioversion Anesthesia: By Anesthesia services Complications: None Specimen: None Contrast: 0 Flouroscopy: none Procedure Details: The patient was brought the lab clerk after informed consent was taken, all the risks and complications were explained including the risk of stroke. Electrical cardioversion was carried out with anesthesia support with propofol. 200 joules of synchronized shock was delivered through external patches which promptly restored sinus rhythm. The patient tolerated the procedure well. Conclusions: successful electrical cardioversion in terminating atrial fibrillation GI REIS MD Sep 04, 2018 13:03
--- NOTE | 2018-09-04 13:05 | Anesthesia-Procedure Note ---
Procedures/Interventions Procedure Start/Stop/Diagnosis Date of Procedure: Sep 04, 2018 Start Time: 12:50 Referring Physician: Smiley Preprocedural Diagnosis: A FLutter Brief History Called to ICU 8 for Cardioversion. Patient has allergy to PCN, denies other medications. Noted NIBP has been running systolic 90s, thus decided to combine Versed and Propofol for sedation. Also noted patient has history of increased alcohol intake. Patient given a total of 4mg Versed and 40mg Propofol for the procedure, completed x1 attempt at 1253. Reported off to [facility]. Patient awake and asking for something to eat. VSS. Stop Time: 13:04 Postprocedural Diagnosis: NSR KELLY/Cardioversion Anesthesia Type: MAC ASA Class: 3 Medications Versed 4mg and Propofol 40mg Monitors and Equipment: BP Cuff - Left, Continuous EKG, End Tidal CO2, IV ( right AC), Pulse Oximeter FRAN BRAXTON CRNA Sep 04, 2018 13:05
[2018-09-04] MEDS ORDERED: AMIO100T4 PO (13:10)
--- NOTE | 2018-09-04 13:26 | NUR ---
Pt brought from 4th floor to [facility] for cardioversion, accompanied by Dr. Reis. Consent obtained. Pt connected to crash cart patches et pads. O2 placed via NC with CO2 monitor at 2L. Anesthesia in room et administered sedation of 4mg versed et 60mg propofol. Pt shocked at 200j at 12:53 et converted to SR. EKG obtained. Dr. Reis ordered recovery time until 1500 et then back to 4th floor for discharge home. SBP 117-99 during procedure with O2 remaining above 94. at bedside. Pt awake et alert et to order lunch.
== END 2018-09-04 15:45 | disposition home or self-care (01) ==
LOC: EDUNIT# 20:52 → ER 20:54 → 4TH 09-04 02:10
PROVIDERS: ADMIT Internal Medicine; ATTEND Internal Medicine
DX: I48.0 Paroxysmal atrial fibrillation (principal); F17.210 Nicotine dependence, cigarettes, uncomplicated; I11.0 Hypertensive heart disease with heart failure; I50.22 Chronic systolic (congestive) heart failure; E03.9 Hypothyroidism, unspecified; E05.90 Thyrotoxicosis, unspecified without thyrotoxic crisis or storm; I42.9 Cardiomyopathy, unspecified; R00.2 Palpitations; Z95.810 Presence of automatic (implantable) cardiac defibrillator; Z79.01 Long term (current) use of anticoagulants; Z79.899 Other long term (current) drug therapy
CPT/HCPCS: 36415; 71045; 80053; 80061; 83735; 83874; 83880; 84484; 85025; 85610; 85730; 90471; 90686; 93005; 93041

== ENCOUNTER 2018-09-09 11:00 | Outpatient (CLI) | payer OTHER ==
[~2018-09-09] VITALS: Ht 177.8 cm; Wt 111.1 kg
== END 2018-09-09 11:23 | disposition home or self-care (01) ==
LOC: PREOP 11:00
PROVIDERS: ATTEND Internal Medicine Interventional Cardiology
DX: Z01.818 Encounter for other preprocedural examination (principal)

== ENCOUNTER 2018-09-12 08:38 | Day surgery (SDC) | payer OTHER ==
[~2018-09-12] VITALS: Ht 177.8 cm; Wt 111.1 kg
[2018-09-12] MEDS ORDERED: HEParin (CATH LAB) 2,000 ML IV ONE (10:08)
[2018-09-12] MEDS ORDERED: LIDOCAINE 1% INJ 20 ML 20 ML VIAL ONE (10:08)
[2018-09-12] MEDS ORDERED: NS IV 1000 ML 1,000 ML IV SCH (10:11)
[2018-09-12] MEDS ORDERED: ISOPROTERENOL 0.2 MG/100 ML D5W IV NR (10:15)
[2018-09-12 10:17] VITALS: BP 122/67
[2018-09-12 10:39] LABS: HEMOGLOBIN 17.4 G/DL (13.3-17.7); RED CELL DISTRIBUTION WIDTH 13.6 % (10.0-14.5); WHITE BLOOD COUNT 7.9 10^3/uL (4.3-11.0)
[2018-09-12 10:50] LABS: INR 1.1 (0.8-1.4); PROTHROMBIN TIME PATIENT 13.7 SEC (12.2-14.7)
[2018-09-12 10:59] LABS: ALANINE AMINOTRANSFERASE 47 U/L (0-55); ALBUMIN 4.5 GM/DL (3.2-4.5); ALKALINE PHOSPHATASE 80 U/L (40-136); BILIRUBIN,TOTAL 1.2 MG/DL (0.1-1.0); BUN/CREATININE RATIO 12; CALCIUM 9.1 MG/DL (8.5-10.1); CARBON DIOXIDE 26 MMOL/L (21-32); CHLORIDE 101 MMOL/L (98-107); CREATININE SERUM 0.94 MG/DL (0.60-1.30); GFR ESTIMATED > 60; GLUCOSE 157 MG/DL (70-105); POTASSIUM 4.4 MMOL/L (3.6-5.0); SODIUM 137 MMOL/L (135-145); TOTAL PROTEIN 7.1 GM/DL (6.4-8.2)
[2018-09-12] MEDS ORDERED: proPOfol 200 MG/20 ML (DIPRIVAN) VIAL IV ONE (11:52)
[2018-09-12] MEDS ORDERED: fentaNYL INJECTION 100 MCG/2 ML AMP ONE (11:52)
[2018-09-12] MEDS ORDERED: SUCCINYLCHOLINE INJ 100 MG/5 ML SYR ONE (11:52)
[2018-09-12] MEDS ORDERED: ROCURONIUM 10 MG/ML 5 ML SYRINGE IV ONE (11:52)
[2018-09-12] MEDS ORDERED: MIDAZOLAM 2 MG/2 ML (VERSED) VIAL ONE (11:52)
--- NOTE | 2018-09-12 12:01 | Cardiac Procedure Note-CS/ASA ---
Pre-Procedure Note Pre-Op Procedure Note H&P Reviewed The H&P was reviewed, patient examined and no changes noted. Date H&P Reviewed: Sep 12, 2018 Time H&P Reviewed: 12:01 Conscious Sedation Pre-Proced Time 12:01 ASA Score 3 For ASA 3 and 4: Consider anesthesia and medical clearance. Also, for patients with a history of failed moderate sedation consider anesthesia. Airway Lungs Heart ASA score ASA 1: a normal healthy patient ASA 2: a patient with a mild systemic disease (mid diabetes, controlled hypertension, obesity ASA 3: a patient with a severe systemic disease that limits activity (angina , COPD, prior Myocardial infarction) ASA 4: a patient with an incapacitating disease that is a constant threat to life (CHF, renal failure) ASA 5: a moribund patient not expected to survive 24 hrs. (ruptured aneurysm) ASA 6: a declared brain- patient whose organs are being harvested. For emergent operations, add the letter E after the classification Mallampati Classification Grade 1 Sedation Plan Analgesia, Amnesia, Plan communicated to team members, Discussed options with patient/fam, Discussed risks with patient/fam The patient is an appropriate candidate to undergo the planned procedure, sedation, and anesthesia. The patient immediately re-assessed prior to indication. Clay TRUJILLO MD Sep 12, 2018 12:01 pm
[2018-09-12] MEDS ORDERED: SEVOFLURANE (ULTANE) 15 ML INHAL SOLN ONE ×4 (12:16→15:28)
[2018-09-12] MEDS ORDERED: LACTATED RINGERS 1,000 ML IV ONE (14:13)
[2018-09-12] MEDS ORDERED: ONDANSETRON 4 MG/2 ML (SDV) Z0FRAN ONE (14:46)
--- NOTE | 2018-09-12 15:05 | Electrophysiology Procedure ---
EP Procedure DATE OF SERVICE:09/12/18 REFERRING PHYSICIAN: CARDIAC ARMHOLE RAISER LOCKSTITCH: Maria D Kirby MD, VIRI, CCDS. INDICATION: PREOPERATIVE DIAGNOSIS: POSTOPERATIVE DIAGNOSES: HISTORY: The patient is planned for comprehensive EP study and ablation. PROCEDURE PERFORMED: 1. Comprehensive EP study with induction. 2. Fluoroscopy. 3. CS pacing. 4. Drug infusion. 5. Ablation of typical atrial flutter. 6. Comprehensive 3D mapping with the carto system. COMPLICATION: None. ESTIMATED BLOOD LOSS: 10 mL. CONTRAST USED: None. FLUOROSCOPY TIME: FLUOROSCOPY DOSE: SPECIMENS: None. ANESTHESIA: Done by our anesthesia colleagues. ANTICOAGULATION: PROCEDURE IN DETAIL: After informed consent was taken, the patient was brought to the EP lab. Anesthesia was provided by our anesthesia colleagues. The patient was draped and prepped in the usual sterile fashion. The patient presented to the EP lab in sinus rhythm. Access was gained in the right femoral vein with a 6-Kazakh and an 8-Kazakh sheath. Left access in left femoral vein was gained with 5-Kazakh and 6-Kazakh sheath respectively. High right atrial catheter was an ablation catheter, right ventricular catheter was placed, his catheter and the CS catheter were also placed. A comprehensive EP study was done including a CS pacing. Typical atrial flutter was not induced with rapid atrial pacing with and without Isuprel infusion. A 3D electroanatomic mapping was donewith the carto system. Ablation was performed in the cavotricuspid isthmus.CS pacing and pacing from the ablation catheter at different positions on the lateral side of the ablation line were used to verify bidirectional block. We then waited for 30 minutes and rechecked and confirmed bidirectional block.Isuprel was given post-procedure, however, we could not induce atrial flutter.The patienttolerated the procedure well and did not have any complication. The patientleft the lab in sinus rhythm. Total ablation time was 9 minutes and 46 seconds. MEASUREMENTS/EP STUDY: AH Interval HV Interval AV Wenckebach retrograde Wenckebach AV node ERP Ventricular ERP PLAN: The patient will be observed overnight and will be discharged home tomorrow with precise followup instructions. Maria D Kirby MD, VIRI, CCDS Cardiac Electrophysiology Clay KIRBY MD Sep 12, 2018 15:05
[2018-09-12] MEDS ORDERED: PATIENT MAY USE OWN MEDS, ALL PO SCH (15:15)
[2018-09-12] MEDS ORDERED: ONDANSETRON 4 MG/2 ML (SDV) Z0FRAN IVP PRN (16:00)
[2018-09-12] MEDS ORDERED: morphine INJ 10 MG/ML 1ML (SYR OR VIAL) IVP ONE (16:00)
[2018-09-12 16:30] VITALS: BP 126/70
[2018-09-12 17:00] VITALS: BP 126/75
[2018-09-12] MEDS: NS IV 1000 ML 1,000 ML IV SCH (17:08)
[2018-09-12 17:30] VITALS: BP 123/65
[2018-09-12 20:38] VITALS: BP 110/58
[2018-09-12] MEDS: APIXABAN 5 MG (ELIQUIS) TABLET PO SCH (20:38)
[2018-09-13] VITALS: BP 110/66
[2018-09-13] MEDS: NS IV 1000 ML 1,000 ML IV SCH (01:13)
[2018-09-13 03:38] LABS: MEAN PLATELET VOLUME 11.3 FL (7.4-10.4); RED CELL DISTRIBUTION WIDTH 13.9 % (10.0-14.5); WHITE BLOOD COUNT 8.4 10^3/uL (4.3-11.0)
[2018-09-13 03:56] LABS: BUN/CREATININE RATIO 15; CALCIUM 8.3 MG/DL (8.5-10.1); CARBON DIOXIDE 25 MMOL/L (21-32); CHLORIDE 106 MMOL/L (98-107); CREATININE SERUM 0.86 MG/DL (0.60-1.30); GFR ESTIMATED > 60; GLUCOSE 124 MG/DL (70-105); POTASSIUM 4.1 MMOL/L (3.6-5.0); SODIUM 140 MMOL/L (135-145)
[2018-09-13 04:00] VITALS: BP 120/70
--- NOTE | 2018-09-13 07:54 | Anesthesia-General Post-Op ---
General Patient Condition Mental Status/LOC: Same as Preop Cardiovascular: Satisfactory Nausea/Vomiting: Absent Respiratory: Satisfactory Pain: Controlled Complications: Absent Post Op Complications Complications None Follow Up Care/Instructions Patient Instructions None needed. Anesthesia/Patient Condition Patient Condition Patient is doing well, no complaints, stable vital signs, no apparent adverse anesthesia problems. No complications reported per nursing. ADEEL CUEVAS CRNA Sep 13, 2018 07:54
[2018-09-13 08:30] VITALS: BP 127/68
[2018-09-13] MEDS: APIXABAN 5 MG (ELIQUIS) TABLET PO SCH (08:50)
--- NOTE | 2018-09-13 19:55 | Cardiology Discharge Summary ---
Diagnosis/Chief Complaint Date of Admission Date of Discharge Discharge Summary Procedures None. Discussion & Recommendations Home Medications Reviewed patient Home Medication Reconciliation performed by pharmacy medication reconciliations mathematics technician and/or nursing. Patients Allergies have been reviewed. Discharge Home Medications: Reviewed and agree with Discharge Medication list on patient's Discharge Instruction sheet Clay TRUJILLO MD Sep 13, 2018 19:55
== END 2018-09-13 12:15 | disposition home or self-care (01) ==
LOC: CATH 08:38 → ICU 16:30 → CATH 09-13 12:15
PROVIDERS: ATTEND Internal Medicine Interventional Cardiology
DX: I48.3 Typical atrial flutter (principal); I48.91 Unspecified atrial fibrillation; I42.0 Dilated cardiomyopathy; I10 Essential (primary) hypertension; F17.210 Nicotine dependence, cigarettes, uncomplicated; J44.9 Chronic obstructive pulmonary disease, unspecified; E78.5 Hyperlipidemia, unspecified; G47.33 Obstructive sleep apnea (adult) (pediatric); E66.9 Obesity, unspecified; Z68.35 Body mass index [BMI] 35.0-35.9, adult; Z82.49 Family history of ischemic heart disease and other diseases of the circulatory system; Z95.810 Presence of automatic (implantable) cardiac defibrillator; Z79.01 Long term (current) use of anticoagulants; Z79.899 Other long term (current) drug therapy
CPT/HCPCS: 36415; 80048; 80053; 85027; 85610; 85730; 87081; 93005; 93613; 93623; 93653

== ENCOUNTER 2018-09-16 19:44 | Outpatient (CLI) | payer OTHER ==
[~2018-09-16 19:44] MED LIST changes: +ALBU18HF2 IH; +FLUT1BLS IH; +LOSA50TA63 PO; +MONT10TA24 PO; +MULT-618 PO
== END 2018-09-17 06:00 | disposition home or self-care (01) ==
LOC: SLEEP 19:44
PROVIDERS: ATTEND Nurse Practitioner Family
DX: G47.33 Obstructive sleep apnea (adult) (pediatric) (principal); G47.50 Parasomnia, unspecified; I42.0 Dilated cardiomyopathy; R06.02 Shortness of breath; I48.0 Paroxysmal atrial fibrillation
CPT/HCPCS: 95810

== ENCOUNTER 2018-11-09 14:55 | Outpatient (CLI) | payer OTHER ==
[~2018-11-09] VITALS: Ht 177.8 cm; Wt 114.3 kg
== END 2018-11-09 15:00 | disposition home or self-care (01) ==
LOC: PREOP 14:55
PROVIDERS: ATTEND Internal Medicine Interventional Cardiology
DX: Z01.818 Encounter for other preprocedural examination (principal)

== ENCOUNTER 2018-11-14 06:50 | Day surgery (SDC) | payer OTHER ==
[~2018-11-14] VITALS: Ht 177.8 cm; Wt 114.3 kg
[2018-11-14] VITALS (14 sets, daily range): BP systolic 94–127; BP diastolic 43–80
[2018-11-14] MEDS ORDERED: HEParin 1000 UNIT/ML (10ML VIAL) FOR BOLUS ONE ×2 (06:56→09:46)
[2018-11-14] MEDS ORDERED: NS ONE (06:56)
[2018-11-14] MEDS ORDERED: LIDOCAINE 1% INJ 20 ML 20 ML VIAL ONE (06:56)
--- OUTSIDE RECORDS SUMMARY | 2018-11-14 06:56 | XMS REPORT | Continuity of Care Document ---
Author Organization Unknown Address Unknown Allergies Active Description Code Type Severity Reaction Onset Reported/Identified Relationship to Patient Clinical Status Yes Penicillins [id number] Drug Allergy Unknown "LONG AGO DON'T 09/17/2006 Medications There is no data. Problems Date Dx Coded Attending Type Code Diagnosis Diagnosed By 03/05/2015 ROSARIO COLLADO, IRAJ Gonzalez Ot 401.9 HYPERTENSION NOS 03/05/2015 ROSARIO COLLADO, IRAJ Gonzalez Ot 486 PNEUMONIA, ORGANISM NOS 03/05/2015 ROSARIO COLLADO, IRAJ Gonzalez Ot 786.50 CHEST PAIN NOS 03/05/2015 IRAJ PONCE MD Ot V58.69 OTH MED,LT,CURRENT USE 05/26/2017 ROBERTO [...] ROBERTO ASKEW MD Ot R47.02 DYSPHASIA 05/27/2017 ASKEW MD, ROBRETO R Ot R60.9 EDEMA, UNSPECIFIED 05/27/2017 ROBERTO ASKEW MD R Ot R92.8 OTH ABN AND INCONCLUSIVE FINDINGS ON DX 06/03/2017 ROBERTO ASKEW MD Ot E03.9 HYPOTHYROIDISM, UNSPECIFIED 06/03/2017 JAMILAH COLLADO, ROBERTO R Ot I10 ESSENTIAL (PRIMARY) HYPERTENSION 06/03/2017 ROBERTO ASKEW MD Ot K21.9 GASTRO-ESOPHAGEAL REFLUX DISEASE WITHOUT 06/03/2017 ROBERTO ASKEW MD R Ot R07.9 CHEST PAIN, UNSPECIFIED 06/03/2017 ROBERTO ASKEW MD R Ot R47.02 DYSPHASIA 06/03/2017 ROBERTO ASKEW MD R Ot R60.9 EDEMA, UNSPECIFIED 06/03/2017 ROBERTO ASKEW MD R Ot R92.8 OTH ABN AND INCONCLUSIVE FINDINGS ON DX 06/03/2017 ROBERTO ASKEW MD Ot E03.9 HYPOTHYROIDISM, UNSPECIFIED 06/03/2017 ROBERTO ASKEW MD R Ot I10 ESSENTIAL (PRIMARY) HYPERTENSION 06/03/2017 ROBERTO ASKEW MD R Ot K21.9 GASTRO-ESOPHAGEAL REFLUX DISEASE WITHOUT 06/03/2017 ROBERTO ASKEW MD Ot R07.9 CHEST PAIN, UNSPECIFIED 06/03/2017 ROBERTO ASKEW MD Ot R47.02 DYSPHASIA 06/03/2017 ROBERTO ASKEW MD Ot R60.9 EDEMA, UNSPECIFIED 06/03/2017 ROBERTO ASKEW MD R Ot R92.8 OTH ABN AND INCONCLUSIVE FINDINGS ON DX 06/05/2017 ISAMAR HATFIELD MD Ot E03.9 HYPOTHYROIDISM, UNSPECIFIED 06/05/2017 ISAMAR HATFIELD MD Ot E80.6 OTHER DISORDERS OF BILIRUBIN METABOLISM 06/05/2017 ISAMAR HATFIELD MD Ot F17.210 NICOTINE DEPENDENCE, CIGARETTES, UNCOMPL 06/05/2017 ISAMAR HATFIELD MD Ot I11.0 HYPERTENSIVE HEART DISEASE WITH HEART FA 06/05/2017 ISAMAR HATFIELD MD Ot I25.10 ATHSCL HEART DISEASE OF [place] CORONARY 06/05/2017 ISAMAR HATFIELD MD Ot I42.9 CARDIOMYOPATHY, UNSPECIFIED 06/05/2017 ISAMAR HATFIELD MD, Ot I48.91 UNSPECIFIED ATRIAL FIBRILLATION 06/05/2017 ISAMAR [...] MD Ot I25.10 ATHSCL HEART DISEASE OF [place] CORONARY 06/06/2017 ISAMAR HATFIELD MD Ot I42.9 [...] MD Ot I25.10 ATHSCL HEART DISEASE OF [place] CORONARY 06/06/2017 ISAMAR HATFIELD MD Ot I42.9 CARDIOMYOPATHY, UNSPECIFIED 06/06/2017 ISAMAR HATFIELD MD Ot I48.91 UNSPECIFIED ATRIAL FIBRILLATION 06/06/2017 ISAMAR HATFIELD MD Ot I50.21 ACUTE SYSTOLIC (CONGESTIVE) HEART FAILUR 06/06/2017 ISAMAR HATFIELD MD Ot K21.9 GASTRO-ESOPHAGEAL REFLUX DISEASE WITHOUT 06/14/2017 Clay TRUJILLO MD Ot F17.210 NICOTINE DEPENDENCE, CIGARETTES, UNCOMPL 06/14/2017 Clay TRUJILLO MD Ot I10 ESSENTIAL (PRIMARY) HYPERTENSION 06/14/2017 Clay TRUJILLO MD Ot I42.0 DILATED CARDIOMYOPATHY 06/14/2017 Clay TRUJILLO MD Ot I48.0 PAROXYSMAL ATRIAL FIBRILLATION 06/14/2017 Clay TRUJILLO MD Ot Z79.01 CUPBOARD BUILDER (CURRENT) USE OF ANTICOAGULANT 06/14/2017 Clay TRUJILLO MD Ot Z82.49 FAMILY HX OF ISCHEM HEART DIS AND OTH DI 06/16/2017 ROBERTO ASKEW MD R Ot E03.9 HYPOTHYROIDISM, UNSPECIFIED 06/16/2017 ROBERTO ASKEW MD R Ot I10 ESSENTIAL (PRIMARY) HYPERTENSION 06/16/2017 ROBERTO ASKEW MD Ot K21.9 GASTRO-ESOPHAGEAL REFLUX DISEASE WITHOUT 06/16/2017 ROBERTO ASKEW MD R Ot R07.9 CHEST PAIN, UNSPECIFIED 06/16/2017 ROBERTO ASKEW MD R Ot R47.02 DYSPHASIA 06/16/2017 ROBERTO ASKEW MD R Ot R60.9 EDEMA, UNSPECIFIED 07/05/2017 Clay TRUJILLO MD Ot F17.210 NICOTINE DEPENDENCE, CIGARETTES, UNCOMPL 07/05/2017 Clay TRUJILLO MD Ot I10 ESSENTIAL (PRIMARY) HYPERTENSION 07/05/2017 Clay TRUJILLO MD Ot I42.0 DILATED CARDIOMYOPATHY 07/05/2017 Clay TRUJILLO MD Ot I48.0 PAROXYSMAL ATRIAL FIBRILLATION 07/05/2017 Clay TRUJILLO MD Ot Z79.01 INTERMEDIATE (CURRENT) USE OF ANTICOAGULANT 07/05/2017 Clay TRUJILLO MD Ot Z82.49 FAMILY HX OF [place]HE[place] HEART DIS AND OTH DI 09/06/2017 ROBERTO ASKEW MD Ot E03.9 HYPOTHYROIDISM, UNSPECIFIED 09/06/2017 ROBERTO ASKEW MD R Ot I10 ESSENTIAL (PRIMARY) HYPERTENSION 09/06/2017 ROBERTO ASKEW MD R Ot K21.9 GASTRO-ESOPHAGEAL REFLUX DISEASE WITHOUT 09/06/2017 JAMILAH COLLADO ROBERTO R Ot R07.9 CHEST PAIN, UNSPECIFIED [...] MD R Ot E03.9 HYPOTHYROIDISM, UNSPECIFIED 09/06/2017 JAMILHA COLLADO, ROBERTO R Ot I10 ESSENTIAL (PRIMARY) [...] FINDINGS ON DX 09/06/2017 JAMILAH COLLADO, ROBERTO Rogers Ot E03.9 HYPOTHYROIDISM, UNSPECIFIED 09/06/2017 JAMILAH COLLADO, [...] COLLADO, ROBERTO R Ot R47.02 DYSPHASIA 09/06/2017 ROBERTO ASKEW MD Ot R60.9 EDEMA, UNSPECIFIED 09/06/2017 ROBERTO ASKEW MD Ot R92.8 OTH ABN AND INCONCLUSIVE FINDINGS ON DX 09/09/2017 Clay TRUJILLO MD Ot E66.9 OBESITY, UNSPECIFIED 09/09/2017 Clay TRUJILLO MD Ot E78.5 HYPERLIPIDEMIA, UNSPECIFIED 09/09/2017 Clay TRUJILLO MD Ot I42.0 DILATED CARDIOMYOPATHY 09/09/2017 Clay TRUJILLO MD Ot I48.91 UNSPECIFIED ATRIAL FIBRILLATION 09/22/2017 Clay TRUJILLO MD Ot E66.9 OBESITY, UNSPECIFIED 09/22/2017 Clay TRUJILLO MD Ot E78.5 HYPERLIPIDEMIA, UNSPECIFIED 09/22/2017 Clay TRUJILLO MD Ot I42.0 DILATED CARDIOMYOPATHY 09/22/2017 Clay TRUJILLO MD Ot I48.91 UNSPECIFIED ATRIAL FIBRILLATION 10/07/2017 Clay TRUJILLO MD Ot I42.0 DILATED CARDIOMYOPATHY 10/07/2017 Clay TRUJILLO MD Ot I48.0 PAROXYSMAL ATRIAL FIBRILLATION 10/08/2017 Clay TRUJILLO MD Ot E66.9 OBESITY, UNSPECIFIED 10/08/2017 Clay TRUJILLO [...] ADULT 10/08/2017 Clay TRUJILLO MD Ot Z79.01 CUPBOARD BUILDER (CURRENT) USE OF ANTICOAGULANT 10/08/2017 Clay TRUJILLO MD Ot Z79.899 OTHER INTERMEDIATE (CURRENT) DRUG THERAPY 10/08/2017 Clay TRUJILLO MD [...] ADULT 10/11/2017 Clay TRUJILLO MD Ot Z79.01 CUPBOARD BUILDER (CURRENT) USE OF ANTICOAGULANT 10/11/2017 Clay TRUJILLO MD Ot Z79.899 OTHER CUPBOARD BUILDER (CURRENT) DRUG THERAPY 10/11/2017 Clay TRUJILLO MD [...] MD Ot I48.0 PAROXYSMAL ATRIAL FIBRILLATION 11/09/2017 ALDO JOHNSONINE E NURSE AUDITOR Ot I48.91 UNSPECIFIED ATRIAL FIBRILLATION 11/09/2017 ALEX, NAI E NURSE AUDITOR Ot R06.00 DYSPNEA, UNSPECIFIED 11/09/2017 ALEX, NAI E NURSE AUDITOR Ot Z72.0 TOBACCO USE 11/09/2017 ALEX NAI E NURSE AUDITOR Ot I48.91 UNSPECIFIED ATRIAL FIBRILLATION 11/09/2017 ALEX NAI E NURSE AUDITOR Ot R06.00 DYSPNEA, UNSPECIFIED 11/09/2017 ALEX, NAI E NURSE AUDITOR Ot Z72.0 TOBACCO USE 12/09/2017 ALEX, NAI E NURSE AUDITOR Ot I48.91 UNSPECIFIED ATRIAL FIBRILLATION 12/09/2017 ALEX, NAI E NURSE AUDITOR Ot R06.00 DYSPNEA, UNSPECIFIED 12/09/2017 ALEX, NAI E NURSE AUDITOR Ot Z72.0 TOBACCO USE 12/21/2017 ALDO JOHNSONINE E NURSE AUDITOR Ot G47.10 HYPERSOMNIA, UNSPECIFIED 12/21/2017 ALDO JOHNSONINE E NURSE AUDITOR Ot G47.50 PARASOMNIA, UNSPECIFIED 12/22/2017 NAI JOHNSON APRN Ot G47.10 HYPERSOMNIA, UNSPECIFIED 12/22/2017 NAI JOHNSON APRN Ot G47.50 PARASOMNIA, UNSPECIFIED 01/19/2018 CASSANDRA COLLADO, M PRECIOUS Ot E66.9 OBESITY, UNSPECIFIED 01/19/2018 CASSANDRA COLLADO, M PRECIOUS Ot E78.5 HYPERLIPIDEMIA, UNSPECIFIED 01/19/2018 CASSANDRA COLLADO, M PRECIOUS Ot I42.0 DILATED CARDIOMYOPATHY 01/19/2018 CASSANDRA COLLADO, M PRECIOUS Ot I48.91 UNSPECIFIED ATRIAL FIBRILLATION 01/19/2018 CASSANDRA COLLADO, M PRECIOUS Ot I42.0 DILATED CARDIOMYOPATHY 01/19/2018 CASSANDRA COLLADO, M PRECIOUS Ot I48.0 PAROXYSMAL ATRIAL FIBRILLATION 01/19/2018 CASSANDRA COLLADO, M PRECIOUS Ot I42.0 DILATED CARDIOMYOPATHY 01/19/2018 CASSANDRA COLLADO, M PRECIOUS Ot I48.0 PAROXYSMAL ATRIAL FIBRILLATION 04/04/2018 CASSANDRA COLLADO, M PRECIOUS Ot E66.9 OBESITY, UNSPECIFIED 04/04/2018 CASSANDRA COLLADO, M PRECIOUS Ot G47.9 SLEEP DISORDER, UNSPECIFIED 04/04/2018 CASSANDRA COLLADO, M PRECIOUS Ot I42.0 DILATED CARDIOMYOPATHY 04/04/2018 CASSANDRA COLLADO, Clay LANG Ot I49.1 ATRIAL PREMATURE DEPOLARIZATION 04/04/2018 CASSANDRA COLLADO, Clay LANG Ot Z72.0 TOBACCO USE 04/27/2018 CASSANDRA COLLADO, Clay LANG Ot E66.9 OBESITY, UNSPECIFIED 04/27/2018 CASSANDRA COLLADO, M PRECIOUS Ot G47.9 SLEEP DISORDER, UNSPECIFIED 04/27/2018 CASSANDRA COLLADO, M PRECIOUS Ot I42.0 DILATED CARDIOMYOPATHY 04/27/2018 CASSANDRA COLLADO, M PRECIOUS Ot I49.1 ATRIAL PREMATURE DEPOLARIZATION 04/27/2018 CASSANDRA COLLADO, Clay LANG Ot Z72.0 TOBACCO USE 08/31/2018 NAI JOHNSON APRN Ot G47.33 OBSTRUCTIVE SLEEP APNEA (ADULT) (PEDIATR 08/31/2018 NAI JOHNSON APRN Ot G47.50 PARASOMNIA, UNSPECIFIED 08/31/2018 NAI JOHNSON APRN Ot I25.10 ATHSCL HEART DISEASE OF [place] CORONARY 08/31/2018 NAI JOHNSON APRN Ot I42.0 DILATED CARDIOMYOPATHY 08/31/2018 NAI JOHNSON APRN Ot I48.0 PAROXYSMAL ATRIAL FIBRILLATION 08/31/2018 NAI JOHNSON APRN Ot J44.9 CHRONIC OBSTRUCTIVE PULMONARY DISEASE, U 08/31/2018 NAI JOHNSON APRN Ot Z72.0 TOBACCO USE 09/04/2018 ALBERT COLLADO, CHRIS Thorne Ot E03.9 HYPOTHYROIDISM, UNSPECIFIED 09/04/2018 ALBERT COLLADO, CHRIS Thorne Ot E05.90 THYROTOXICOSIS, UNSP WITHOUT THYROTOXIC 09/04/2018 CHRIS PRICE MD Ot F17.210 NICOTINE DEPENDENCE, CIGARETTES, UNCOMPL 09/04/2018 CHRIS PRICE MD Ot I11.0 HYPERTENSIVE HEART DISEASE WITH HEART FA 09/04/2018 CHRIS PRICE MD Ot I42.9 CARDIOMYOPATHY, UNSPECIFIED 09/04/2018 CHRIS PRICE MD Ot I48.0 PAROXYSMAL ATRIAL FIBRILLATION 09/04/2018 CHRIS PRICE MD Ot I50.22 CHRONIC SYSTOLIC (CONGESTIVE) HEART FAIL 09/04/2018 CHRIS PRICE MD Ot R00.2 PALPITATIONS 09/04/2018 CHRIS PRICE MD Ot Z79.01 CUPBOARD BUILDER (CURRENT) USE OF ANTICOAGULANT 09/04/2018 CHRIS PRICE MD Ot Z79.899 OTHER INTERMEDIATE (CURRENT) DRUG THERAPY 09/04/2018 CHRIS PRICE MD Ot Z95.810 PRESENCE OF AUTOMATIC (IMPLANTABLE) CARD 09/09/2018 Clay TRUJILLO MD Ot Z01.818 ENCOUNTER FOR OTHER PREPROCEDURAL EXAMIN 09/09/2018 Clay TRUJILLO MD Ot Z01.818 ENCOUNTER FOR OTHER PREPROCEDURAL EXAMIN 09/13/2018 Clay TRUJILLO MD Ot E66.9 OBESITY, UNSPECIFIED 09/13/2018 Clay TRUJILLO MD Ot E78.5 HYPERLIPIDEMIA, UNSPECIFIED 09/13/2018 Clay TRUJILLO MD Ot F17.210 NICOTINE DEPENDENCE, CIGARETTES, UNCOMPL 09/13/2018 Clay TRUJILLO MD Ot G47.33 OBSTRUCTIVE SLEEP APNEA (ADULT) (PEDIATR 09/13/2018 Clay TRUJILLO MD Ot I10 ESSENTIAL (PRIMARY) HYPERTENSION 09/13/2018 Clay TRUJILLO MD Ot I42.0 DILATED CARDIOMYOPATHY 09/13/2018 Clay TRUJILLO MD Ot I48.3 TYPICAL ATRIAL FLUTTER 09/13/2018 Clay TRUJILLO MD, Ot I48.91 UNSPECIFIED ATRIAL FIBRILLATION 09/13/2018 Clay TRUJILLO MD Ot J44.9 CHRONIC OBSTRUCTIVE PULMONARY DISEASE, U 09/13/2018 Clay TRUJILLO MD, Ot Z68.35 BODY MASS INDEX (BMI) 35.0-35.9, ADULT 09/13/2018 Clay TRUJILLO MD Ot Z79.01 CUPBOARD BUILDER (CURRENT) USE OF ANTICOAGULANT 09/13/2018 Clay TRUJILLO MD Ot Z79.899 OTHER INTERMEDIATE (CURRENT) DRUG THERAPY 09/13/2018 Clay TRUJILLO MD Ot Z82.49 FAMILY HX OF ISCHEM HEART DIS AND OTH DI 09/13/2018 Clay TRUJILLO MD Ot Z95.810 PRESENCE OF AUTOMATIC (IMPLANTABLE) CARD 09/14/2018 Clay TRUJILLO MD Ot E66.9 OBESITY, UNSPECIFIED 09/14/2018 Clay TRUJILLO MD Ot E78.5 HYPERLIPIDEMIA, UNSPECIFIED 09/14/2018 Clay TRUJILLO MD Ot F17.210 NICOTINE DEPENDENCE, CIGARETTES, UNCOMPL 09/14/2018 Clay TRUJILLO MD Ot G47.33 OBSTRUCTIVE SLEEP APNEA (ADULT) (PEDIATR 09/14/2018 Clay TRUJILLO MD Ot I10 ESSENTIAL (PRIMARY) HYPERTENSION 09/14/2018 Clay TRUJILLO MD Ot I42.0 DILATED CARDIOMYOPATHY 09/14/2018 Clay TRUJILLO MD Ot I48.3 TYPICAL ATRIAL FLUTTER 09/14/2018 Clay TRUJILLO MD Ot I48.91 UNSPECIFIED ATRIAL FIBRILLATION 09/14/2018 Clay TRUJILLO MD Ot J44.9 CHRONIC OBSTRUCTIVE PULMONARY DISEASE, U 09/14/2018 CASSANDRA COLLADO, Clay LANG Ot Z68.35 BODY MASS INDEX (BMI) 35.0-35.9, ADULT 09/14/2018 CASSANDRA COLLADO, Clay LANG Ot Z79.01 INTERMEDIATE (CURRENT) USE OF ANTICOAGULANT 09/14/2018 Clay TRUJILLO MD Ot Z79.899 OTHER CUPBOARD BUILDER (CURRENT) DRUG THERAPY 09/14/2018 Clay TRUJILLO MD Ot Z82.49 FAMILY HX OF [place] HEART DIS AND OTH DI 09/14/2018 Clay TRUJILLO MD Ot Z95.810 PRESENCE OF AUTOMATIC (IMPLANTABLE) CARD 09/16/2018 NAI JOHNSON NURSE AUDITOR Ot G47.33 OBSTRUCTIVE SLEEP APNEA (ADULT) (PEDIATR 09/16/2018 NAI JOHNSON NURSE AUDITOR Ot G47.50 PARASOMNIA, UNSPECIFIED 09/16/2018 NAI JOHNSON NURSE AUDITOR Ot I25.10 ATHSCL HEART DISEASE OF [place] CORONARY 09/16/2018 NAI JOHNSON E NURSE AUDITOR Ot I42.0 DILATED CARDIOMYOPATHY 09/16/2018 ALDO JOHNSONINE E NURSE AUDITOR Ot I48.0 PAROXYSMAL ATRIAL FIBRILLATION 09/16/2018 NAI JOHNSON NURSE AUDITOR Ot J44.9 CHRONIC OBSTRUCTIVE PULMONARY DISEASE, U 09/16/2018 ALDO JOHNSONINE Orin NURSE AUDITOR Ot Z72.0 TOBACCO USE 09/17/2018 ALDO JOHNSONINE E NURSE AUDITOR Ot G47.33 OBSTRUCTIVE SLEEP APNEA (ADULT) (PEDIATR 09/17/2018 NAI JOHNSON NURSE AUDITOR Ot G47.50 PARASOMNIA, UNSPECIFIED 09/17/2018 NAI JOHNSON NURSE AUDITOR Ot I42.0 DILATED CARDIOMYOPATHY 09/17/2018 ALDO JOHNSONINE E NURSE AUDITOR Ot I48.0 PAROXYSMAL ATRIAL FIBRILLATION 09/17/2018 NAI JOHNSON NURSE AUDITOR Ot R06.02 SHORTNESS OF BREATH 09/19/2018 ALDO JOHNSONINE E NURSE AUDITOR Ot G47.33 OBSTRUCTIVE SLEEP APNEA (ADULT) (PEDIATR 09/19/2018 ALDO JOHNSONINE E NURSE AUDITOR Ot G47.50 PARASOMNIA, UNSPECIFIED 09/19/2018 NAI JOHNSON NURSE AUDITOR Ot I42.0 DILATED CARDIOMYOPATHY 09/19/2018 NAI JOHNSON NURSE AUDITOR Ot I48.0 PAROXYSMAL ATRIAL FIBRILLATION 09/19/2018 NAI JOHNSON NURSE AUDITOR Ot R06.02 SHORTNESS OF BREATH 10/18/2018 CASSANDRA COLLADO, Clay LANG Ot I42.0 DILATED CARDIOMYOPATHY 10/18/2018 CASSANDRA COLLADO, M PRECIOUS Ot I48.0 PAROXYSMAL ATRIAL FIBRILLATION 10/18/2018 NAI JOHNSON NURSE AUDITOR Ot I48.91 UNSPECIFIED ATRIAL FIBRILLATION 10/18/2018 NAI JOHNSON NURSE AUDITOR Ot R06.00 DYSPNEA, UNSPECIFIED 10/18/2018 NAI JOHNSON NURSE AUDITOR Ot Z72.0 TOBACCO USE 10/18/2018 CASSANDRA COLLADO, Clay LANG Ot E66.9 OBESITY, UNSPECIFIED 10/18/2018 CASSANDRA COLLADO, Clay LANG Ot G47.9 SLEEP DISORDER, UNSPECIFIED 10/18/2018 CASSANDRA COLLADO, Clay LANG Ot I42.0 DILATED CARDIOMYOPATHY 10/18/2018 CASSANDRA COLLADO, Clay LANG Ot I49.1 ATRIAL PREMATURE DEPOLARIZATION 10/18/2018 CASSANDRA COLLADO, Clay LANG Ot Z72.0 TOBACCO USE 10/18/2018 NAI JOHNSON NURSE AUDITOR Ot G47.33 OBSTRUCTIVE SLEEP APNEA (ADULT) (PEDIATR 10/18/2018 NAI JOHNSON NURSE AUDITOR Ot G47.50 PARASOMNIA, UNSPECIFIED 10/18/2018 NAI JOHNSON NURSE AUDITOR Ot I25.10 ATHSCL HEART DISEASE OF [place] CORONARY 10/18/2018 NAI JOHNSON NURSE AUDITOR Ot I42.0 DILATED CARDIOMYOPATHY 10/18/2018 NAI JOHNSON NURSE AUDITOR Ot I48.0 PAROXYSMAL ATRIAL FIBRILLATION 10/18/2018 NAI JOHNSON NURSE AUDITOR Ot J44.9 CHRONIC OBSTRUCTIVE PULMONARY DISEASE, U 10/18/2018 NAI JOHNSON NURSE AUDITOR Ot Z72.0 TOBACCO USE 11/09/2018 CASSANDRA COLLADO, Clay LANG Ot Z01.818 ENCOUNTER FOR OTHER PREPROCEDURAL EXAMIN 11/09/2018 ELISSA CASTILLO MD Ot D75.1 SECONDARY POLYCYTHEMIA 11/09/2018 ELISSA CASTILLO MD Ot E03.9 HYPOTHYROIDISM, UNSPECIFIED 11/09/2018 ELISSA CASTILLO MD Ot E11.9 TYPE 2 DIABETES MELLITUS WITHOUT COMPLIC 11/09/2018 ELISSA CASTILLO MD Ot E78.5 HYPERLIPIDEMIA, UNSPECIFIED 11/09/2018 ELISSA CASTILLO MD Ot F17.210 NICOTINE DEPENDENCE, CIGARETTES, UNCOMPL 11/09/2018 ELISSA CASTILLO MD Ot G47.33 OBSTRUCTIVE SLEEP APNEA (ADULT) (PEDIATR 11/09/2018 ELISSA CASTILLO MD Ot I10 ESSENTIAL (PRIMARY) HYPERTENSION 11/09/2018 ELISSA CASTILLO MD Ot I42.0 DILATED CARDIOMYOPATHY 11/09/2018 ELISSA CASTILLO MD Ot I48.0 PAROXYSMAL ATRIAL FIBRILLATION 11/09/2018 ELISSA CASTILLO MD Ot J44.9 CHRONIC OBSTRUCTIVE PULMONARY DISEASE, U 11/09/2018 ELISSA CASTILLO MD Ot Z79.899 OTHER CUPBOARD BUILDER (CURRENT) DRUG THERAPY 11/09/2018 ELISSA CASTILLO MD Ot Z95.810 PRESENCE OF AUTOMATIC (IMPLANTABLE) CARD 11/09/2018 NAI JOHNSON APRN Ot G47.33 OBSTRUCTIVE SLEEP APNEA (ADULT) (PEDIATR 11/09/2018 NAI JOHNSON APRN Ot G47.50 PARASOMNIA, UNSPECIFIED 11/09/2018 NAI JOHNSON APRN Ot I25.10 ATHSCL HEART DISEASE OF [place] CORONARY 11/09/2018 NAI JOHNSON APRN Ot I42.0 DILATED CARDIOMYOPATHY 11/09/2018 NAI JOHNSON APRN Ot I48.0 PAROXYSMAL ATRIAL FIBRILLATION 11/09/2018 NAI JOHNSON APRN Ot J44.9 CHRONIC OBSTRUCTIVE PULMONARY DISEASE, U 11/09/2018 NAI JOHNSON APRN Ot Z72.0 TOBACCO USE 11/09/2018 Clay TRUJILLO MD Ot Z01.818 ENCOUNTER FOR OTHER PREPROCEDURAL EXAMIN 11/09/2018 Clay TRUJILLO MD Ot Z01.818 ENCOUNTER FOR OTHER PREPROCEDURAL EXAMIN Procedures Code Description Performed By Performed On [id number] MEASURE OF CARDIAC SAMPL PRESSURE, L H 06/04/2017 [id number] BAPTIST OF CARDIAC RHYTHM, SINGLE 06/04/2017 [id number] FLUOROSCOPY OF MULT COR ART USING L OSM 06/04/2017 [id number] FLUOROSCOPY OF LEFT HEART USING LOW OSMO 06/04/2017 [id number] [place]APTIST OF CARDIAC RHYTHM, SINGLE 10/19/2017 Results Test [...] resistant Staphylococcus aureus (MRSA) screening culture NEG [employer] [facility] Automated blood complete blood count (hemogram) panel [...] 33 s 24-35 Comprehensive metabolic panel - 03/15/18 08:26 Serum or plasma sodium measurement (moles/volume) [...] - 10/20/17 03:20 Magnesium 1.8 mg/dL 1.8-2.4 Complete blood count (CBC) with automated white blood cell (WBC) differential - 09/03/18 21:00 Blood leukocytes automated count (number/volume) 11.1 10*3/uL 4.3-11.0 Blood erythrocytes automated count (number/volume) 5.70 10*6/uL 4.35-5.85 Venous blood hemoglobin measurement (mass/volume) 16.8 g/dL 13.3-17.7 Blood hematocrit (volume fraction) 49 % 40-54 Automated erythrocyte mean corpuscular volume 85 [foz_us] 80-99 Automated erythrocyte mean corpuscular hemoglobin (mass per erythrocyte) 30 pg 25-34 Automated erythrocyte mean corpuscular hemoglobin concentration measurement ( mass/volume) 35 g/dL 32-36 Automated erythrocyte distribution width ratio 14.0 % 10.0-14.5 Automated blood platelet count (count/volume) 192 10*3/uL 130-400 Automated blood platelet mean volume measurement 11.5 [foz_us] 7.4-10.4 Automated blood neutrophils/100 leukocytes 58 % 42-75 Automated blood lymphocytes/100 leukocytes 31 % 12-44 Blood monocytes/100 leukocytes 9 % 0-12 Automated blood eosinophils/100 leukocytes 2 % 0-10 Automated blood basophils/100 leukocytes 0 % 0-10 Blood neutrophils automated count (number/volume) 6.4 10*3 1.8-7.8 Blood lymphocytes automated count (number/volume) 3.4 10*3 1.0-4.0 Blood monocytes automated count (number/volume) 1.0 10*3 0.0-1.0 Automated eosinophil count 0.2 10*3/uL 0.0-0.3 Automated blood basophil count (count/volume) 0.0 10*3/uL 0.0-0.1 Comprehensive metabolic panel - 09/03/18 21:00 Serum or plasma sodium measurement (moles/volume) 138 mmol/L 135-145 Serum or plasma potassium measurement (moles/volume) 3.7 mmol/L 3.6-5.0 Serum or plasma chloride measurement (moles/volume) 100 mmol/L 98-107 Carbon dioxide 26 mmol/L 21-32 Serum or plasma anion gap determination (moles/volume) 12 mmol/L 5-14 Serum or plasma urea nitrogen measurement (mass/volume) 19 mg/dL 7-18 Serum or plasma creatinine measurement (mass/volume) 1.27 mg/dL 0.60-1.30 Serum or plasma urea nitrogen/creatinine mass ratio 15 NRG Serum or plasma creatinine measurement with calculation of estimated glomerular filtration rate > NRG Serum or plasma glucose measurement (mass/volume) 236 mg/dL 70-105 Serum or plasma calcium measurement (mass/volume) 8.6 mg/dL 8.5-10.1 Serum or plasma total bilirubin measurement (mass/volume) 0.6 mg/dL 0.1-1.0 Serum or plasma alkaline phosphatase measurement (enzymatic activity/volume) 98 U/L 40-136 Serum or plasma aspartate aminotransferase measurement (enzymatic activity/ volume) 24 U/L 5-34 Serum or plasma alanine aminotransferase measurement (enzymatic activity/volume ) 61 U/L 0-55 Serum or plasma protein measurement (mass/volume) 7.1 g/dL 6.4-8.2 Serum or plasma albumin measurement (mass/volume) 4.4 g/dL 3.2-4.5 CALCIUM CORRECTED 8.3 mg/dL 8.5-10.1 Magnesium - 09/03/18 21:00 Magnesium 2.0 mg/dL 1.8-2.4 Serum or plasma troponin i.cardiac measurement (mass/volume) - 09/03/18 21:00 Serum or plasma troponin i.cardiac measurement (mass/volume) < ng/ mL <0.028 Myoglobin, serum - 09/03/18 21:00 Myoglobin, serum 41.7 ng/mL 10.0-92.0 Serum or plasma lithium measurement (moles/volume) - 09/03/18 21:00 BNP level 1204.1 pg/mL <100.0 PT panel in platelet poor plasma by coagulation assay - 09/03/18 21:00 Prothrombin time (PT) in platelet poor plasma by coagulation assay 14.0 s 12.2-14.7 INR in platelet poor plasma or blood by coagulation assay 1.1 0.8-1.4 Activated partial thromboplastin time (aPTT) in platelet poor plasma bycoagulation assay - 09/03/18 21:00 Activated partial thromboplastin time (aPTT) in platelet poor plasma bycoagulation assay 30 s 24-35 Complete blood count (CBC) with automated white blood cell (WBC) differential - 09/04/18 04:55 Blood leukocytes automated count (number/volume) 6.6 10*3/uL 4.3-11.0 Blood erythrocytes automated count (number/volume) 5.05 10*6/uL 4.35-5.85 Venous blood hemoglobin measurement (mass/volume) 14.6 g/dL 13.3-17.7 Blood hematocrit (volume fraction) 44 % 40-54 Automated erythrocyte mean corpuscular volume 87 [foz_us] 80-99 Automated erythrocyte mean corpuscular hemoglobin (mass per erythrocyte) 29 pg 25-34 Automated erythrocyte mean corpuscular hemoglobin concentration measurement ( mass/volume) 33 g/dL 32-36 Automated erythrocyte distribution width ratio 13.7 % 10.0-14.5 Automated blood platelet count (count/volume) 141 10*3/uL 130-400 Automated blood platelet mean volume measurement 11.5 [foz_us] 7.4-10.4 Automated blood neutrophils/100 leukocytes 52 % 42-75 Automated blood lymphocytes/100 leukocytes 36 % 12-44 Blood monocytes/100 leukocytes 9 % 0-12 Automated blood eosinophils/100 leukocytes 3 % 0-10 Automated blood basophils/100 leukocytes 0 % 0-10 Blood neutrophils automated count (number/volume) 3.4 10*3 1.8-7.8 Blood lymphocytes automated count (number/volume) 2.4 10*3 1.0-4.0 Blood monocytes automated count (number/volume) 0.6 10*3 0.0-1.0 Automated eosinophil count 0.2 10*3/uL 0.0-0.3 Automated blood basophil count (count/volume) 0.0 10*3/uL 0.0-0.1 Lipid 1996 panel - 09/04/18 04:55 Serum or plasma triglyceride measurement (mass/volume) 56 mg/dL <150 Serum or plasma cholesterol measurement (mass/volume) 143 mg/dL < 200 Serum or plasma cholesterol in HDL measurement (mass/volume) 28 mg/ dL 40-60 Cholesterol in LDL [mass/volume] in serum or plasma by direct assay 112 mg/dL 1-129 Serum or plasma cholesterol in VLDL measurement (mass/volume) 11 mg/ dL 5-40 Comprehensive metabolic panel - 09/04/18 04:55 Serum or plasma sodium measurement (moles/volume) 140 mmol/L 135-145 Serum or plasma potassium measurement (moles/volume) 4.3 mmol/L 3.6-5.0 Serum or plasma chloride measurement (moles/volume) 104 mmol/L 98-107 Carbon dioxide 27 mmol/L 21-32 Serum or plasma anion gap determination (moles/volume) 9 mmol/L 5-14 Serum or plasma urea nitrogen measurement (mass/volume) 16 mg/dL 7-18 Serum or plasma creatinine measurement (mass/volume) 1.10 mg/dL 0.60-1.30 Serum or plasma urea nitrogen/creatinine mass ratio 15 NRG Serum or plasma creatinine measurement with calculation of estimated glomerular filtration rate > NRG Serum or plasma glucose measurement (mass/volume) 161 mg/dL 70-105 Serum or plasma calcium measurement (mass/volume) 7.7 mg/dL 8.5-10.1 Serum or plasma total bilirubin measurement (mass/volume) 0.6 mg/dL 0.1-1.0 Serum or plasma alkaline phosphatase measurement (enzymatic activity/volume) 65 U/L 40-136 Serum or plasma aspartate aminotransferase measurement (enzymatic activity/ volume) 17 U/L 5-34 Serum or plasma alanine aminotransferase measurement (enzymatic activity/volume ) 43 U/L 0-55 Serum or plasma protein measurement (mass/volume) 5.3 g/dL 6.4-8.2 Serum or plasma albumin measurement (mass/volume) 3.4 g/dL 3.2-4.5 CALCIUM CORRECTED 8.2 mg/dL 8.5-10.1 Automated blood complete blood count (hemogram) panel - 09/12/18 10:34 Blood leukocytes automated count (number/volume) 7.9 10*3/uL 4.3-11.0 Blood erythrocytes automated count (number/volume) 6.01 10*6/uL 4.35-5.85 Venous blood hemoglobin measurement (mass/volume) 17.4 g/dL 13.3-17.7 Blood hematocrit (volume fraction) 51 % 40-54 Automated erythrocyte mean corpuscular volume 85 [foz_us] 80-99 Automated erythrocyte mean corpuscular hemoglobin (mass per erythrocyte) 29 pg 25-34 Automated erythrocyte mean corpuscular hemoglobin concentration measurement ( mass/volume) 34 g/dL 32-36 Automated erythrocyte distribution width ratio 13.6 % 10.0-14.5 Automated blood platelet count (count/volume) 182 10*3/uL 130-400 Automated blood platelet mean volume measurement 11.0 [foz_us] 7.4-10.4 PT panel in platelet poor plasma by coagulation assay - 09/12/18 10:34 Prothrombin time (PT) in platelet poor plasma by coagulation assay 13.7 s 12.2-14.7 INR in platelet poor plasma or blood by coagulation assay 1.1 0.8-1.4 Activated partial thromboplastin time (aPTT) in platelet poor plasma bycoagulation assay - 09/12/18 10:34 Activated partial thromboplastin time (aPTT) in platelet poor plasma bycoagulation assay 29 s 24-35 Comprehensive metabolic panel - 09/12/18 10:34 Serum or plasma sodium measurement (moles/volume) 137 mmol/L 135-145 Serum or plasma potassium measurement (moles/volume) 4.4 mmol/L 3.6-5.0 Serum or plasma chloride measurement (moles/volume) 101 mmol/L 98-107 Carbon dioxide 26 mmol/L 21-32 Serum or plasma anion gap determination (moles/volume) 10 mmol/L 5-14 Serum or plasma urea nitrogen measurement (mass/volume) 11 mg/dL 7-18 Serum or plasma creatinine measurement (mass/volume) 0.94 mg/dL 0.60-1.30 Serum or plasma urea nitrogen/creatinine mass ratio 12 NRG Serum or plasma creatinine measurement with calculation of estimated glomerular filtration rate > NRG Serum or plasma glucose measurement (mass/volume) 157 mg/dL 70-105 Serum or plasma calcium measurement (mass/volume) 9.1 mg/dL 8.5-10.1 Serum or plasma total bilirubin measurement (mass/volume) 1.2 mg/dL 0.1-1.0 Serum or plasma alkaline phosphatase measurement (enzymatic activity/volume) 80 U/L 40-136 Serum or plasma aspartate aminotransferase measurement (enzymatic activity/ volume) 24 U/L 5-34 Serum or plasma alanine aminotransferase measurement (enzymatic activity/volume ) 47 U/L 0-55 Serum or plasma protein measurement (mass/volume) 7.1 g/dL 6.4-8.2 Serum or plasma albumin measurement (mass/volume) 4.5 g/dL 3.2-4.5 CALCIUM CORRECTED 8.7 mg/dL 8.5-10.1 Methicillin resistant Staphylococcus aureus (MRSA) screening culture - 10:34 Methicillin resistant Staphylococcus aureus (MRSA) screening culture NEG NRG Automated blood complete blood count (hemogram) panel - 09/13/18 03:10 Blood leukocytes automated count (number/volume) 8.4 10*3/uL 4.3-11.0 Blood erythrocytes automated count (number/volume) 5.15 10*6/uL 4.35-5.85 Venous blood hemoglobin measurement (mass/volume) 15.0 g/dL 13.3-17.7 Blood hematocrit (volume fraction) 45 % 40-54 Automated erythrocyte mean corpuscular volume 86 [foz_us] 80-99 Automated erythrocyte mean corpuscular hemoglobin (mass per erythrocyte) 29 pg 25-34 Automated erythrocyte mean corpuscular hemoglobin concentration measurement ( mass/volume) 34 g/dL 32-36 Automated erythrocyte distribution width ratio 13.9 % 10.0-14.5 Automated blood platelet count (count/volume) 141 10*3/uL 130-400 Automated blood platelet mean volume measurement 11.3 [foz_us] 7.4-10.4 Whole blood basic metabolic panel - 09/13/18 03:10 Serum or plasma sodium measurement (moles/volume) 140 mmol/L 135-145 Serum or plasma potassium measurement (moles/volume) 4.1 mmol/L 3.6-5.0 Serum or plasma chloride measurement (moles/volume) 106 mmol/L 98-107 Carbon dioxide 25 mmol/L 21-32 Serum or plasma anion gap determination (moles/volume) 9 mmol/L 5-14 Serum or plasma urea nitrogen measurement (mass/volume) 13 mg/dL 7-18 Serum or plasma creatinine measurement (mass/volume) 0.86 mg/dL 0.60-1.30 Serum or plasma urea nitrogen/creatinine mass ratio 15 NRG Serum or plasma creatinine measurement with calculation of estimated glomerular filtration rate > NRG Serum or plasma glucose measurement (mass/volume) 124 mg/dL 70-105 Serum or plasma calcium measurement (mass/volume) 8.3 mg/dL 8.5-10.1 Encounters ACCT No. Visit Date/Time Discharge Status Pt. Type Provider Facility Loc./Unit Complaint [id number] 11/09/2018 13:13:00 11/09/2018 23:59:59 CLS Outpatient ELISSA CASTILLO MD [facility] ONC [id number] 11/09/2018 14:55:00 11/09/2018 15:00:00 DIS Outpatient Clay TRUJILLO MD [facility] PREOP PAROXYSMAL ATRIAL FIBRILLATION [id number] 09/16/2018 19:44:00 09/17/2018 06:00:00 DIS Outpatient NAI JOHNSON APRN [facility] SLEEP PARASOMNIA, UNSPECIFIED, ADELIA [id number] 09/12/2018 08:38:00 09/13/2018 12:15:00 DIS Outpatient Clay TRUJILLO MD [facility] CATH TYPICAL ATRIAL FLUTTER [id number] 09/09/2018 11:00:00 09/09/2018 11:23:00 DIS Outpatient Clay TRUJILLO MD [facility] PREOP RIGHT EP STUDY [id number] 09/03/2018 20:55:00 09/04/2018 14:07:00 DIS Inpatient CHRIS PRICE MD [facility] 4TH A-FLUTTER W/RVR [id number] 08/31/2018 08:34:00 08/31/2018 23:59:59 CLS Outpatient NAI JOHNSON APRN [facility] RAD ADELIA,ASTHMA,COPD [id number] 03/31/2018 08:31:00 03/31/2018 23:59:59 CLS Outpatient Clay TRUJILLO MD [facility] CARD ATRIAL FRIBRILLATION, DILATED CARDIOMYOPATHY [id number] 12/21/2017 15:37:00 12/21/2017 15:45:00 DIS Outpatient NAI JOHNSON APRN [facility] SLEEP G47.10 HYPERSOMNIA [id number] 11/08/2017 07:57:00 11/08/2017 23:59:59 CLS Outpatient NAI JOHNSON APRN [facility] RT Z72.0 TOBACCO USER [id number] 10/18/2017 20:05:00 10/20/2017 14:40:00 DIS Inpatient KARISHMA INGRAM MD [facility] ICU AFIB W RVR [id number] 10/07/2017 08:03:00 10/08/2017 14:15:00 DIS Outpatient Clay TRUJILLO MD [facility] SDC CARDIOMYOPATHY [id number] 10/07/2017 09:30:00 10/07/2017 23:59:59 CLS Preadmit Clay TRUJILLO MD [facility] CATH AFIB [id number] 09/30/2017 08:17:00 09/30/2017 23:59:59 CLS Outpatient Clay TRUJILLO MD [facility] CATH CARDIOMYOPATHY [id number] 09/08/2017 08:44:00 09/08/2017 23:59:59 CLS Outpatient Clay TRUJILLO MD [facility] CARD I48.91 AFIB [id number] 06/14/2017 10:55:00 06/14/2017 14:16:00 DIS Outpatient Clay TRUJILLO MD [facility] CATH AFIB [id number] 06/03/2017 15:42:00 06/06/2017 13:00:00 DIS Inpatient ISAMAR HATFIELD MD [facility] ICU AFIB RVR [id number] 06/03/2017 13:47:00 06/03/2017 23:59:59 CLS Outpatient ROBERTO ASKEW MD [facility] RAD I10 E03.9 [id number] 05/13/2017 15:18:00 05/13/2017 23:59:59 CLS Outpatient ROBERTO ASKEW MD [facility] RAD I10 E03.9 R60.9 K21.9 R47.02 R07.9 [id number] 05/05/2017 11:40:00 05/05/2017 23:59:59 CLS Preadmit JERAMIE DOMATILDE S [facility] RAD BILATERAL BREAST ASSYMETRY [id number] 03/05/2015 10:41:00 03/05/2015 12:50:00 DIS Emergency IRAJ PONCE MD [facility] ER CHEST PAIN [id number] 11/14/2018 06:50:00 ACT Outpatient Clay TRUJILLO MD [facility] CATH PAROXYSMAL AFIB [id number] 09/13/2018 13:40:41 09/13/2018 23:59:59 CLS Outpatient
[2018-11-14] MEDS ORDERED: ISOPROTERENOL 0.2 MG/100 ML D5W IV ONE (07:00)
[2018-11-14] MEDS ORDERED: NS IV 1000 ML 1,000 ML IV SCH (07:00)
[2018-11-14 07:18] LABS: HEMOGLOBIN 17.6 G/DL (13.3-17.7); MEAN PLATELET VOLUME 11.7 FL (7.4-10.4); RED CELL DISTRIBUTION WIDTH 14.4 % (10.0-14.5); WHITE BLOOD COUNT 8.1 10^3/uL (4.3-11.0)
[2018-11-14] MEDS ORDERED: ROCURONIUM 10 MG/ML 5 ML SYRINGE IV ONE (07:27)
[2018-11-14] MEDS ORDERED: proPOfol 200 MG/20 ML (DIPRIVAN) VIAL IV ONE (07:27)
[2018-11-14] MEDS ORDERED: DEXAMETHASONE 10 MG/ML (DECADRON) 1 ML VIAL ONE (07:28)
[2018-11-14] MEDS ORDERED: LIDOCAINE PF 1% 2 ML AMP ONE (07:28)
[2018-11-14] MEDS ORDERED: ONDANSETRON 4 MG/2 ML (SDV) Z0FRAN ONE (07:28)
[2018-11-14] MEDS ORDERED: SEVOFLURANE (ULTANE) 15 ML INHAL SOLN ONE (07:29)
[2018-11-14 07:30] LABS: PROTHROMBIN TIME PATIENT 13.9 SEC (12.2-14.7)
[2018-11-14] MEDS ORDERED: MIDAZOLAM 2 MG/2 ML (VERSED) VIAL ONE (07:35)
[2018-11-14] MEDS ORDERED: fentaNYL INJECTION 100 MCG/2 ML AMP ONE ×2 (07:36→13:08)
[2018-11-14 07:55] LABS: ALANINE AMINOTRANSFERASE 63 U/L (0-55); ALBUMIN 4.1 GM/DL (3.2-4.5); ALKALINE PHOSPHATASE 72 U/L (40-136); BILIRUBIN,TOTAL 1.1 MG/DL (0.1-1.0); BUN/CREATININE RATIO 13; CALCIUM 8.7 MG/DL (8.5-10.1); CARBON DIOXIDE 24 MMOL/L (21-32); CHLORIDE 102 MMOL/L (98-107); CREATININE SERUM 0.83 MG/DL (0.60-1.30); GFR ESTIMATED > 60; GLUCOSE 175 MG/DL (70-105); SODIUM 138 MMOL/L (135-145); TOTAL PROTEIN 6.6 GM/DL (6.4-8.2)
[2018-11-14] MEDS ORDERED: HEParin DRIP 25000 UNIT/500ML 500 ML IV ONE (08:01)
[2018-11-14 08:31] LABS: BILIRUBIN,URINE NEGATIVE (NEGATIVE); CLARITY,URINE CLEAR; COLOR,URINE YELLOW; GLUCOSE, URINE (UA) NEGATIVE (NEGATIVE); KETONES,URINE NEGATIVE (NEGATIVE); LEUKOCYTE ESTERASE ,URINE NEGATIVE (NEGATIVE); NITRITE,URINE NEGATIVE (NEGATIVE); PH,URINE 7 (5-9); PROTEIN,URINE NEGATIVE (NEGATIVE); UROBILINOGEN,URINE NORMAL (NORMAL)
[2018-11-14 09:05] LABS: BACTERIA,URINE NEGATIVE /HPF
[2018-11-14] MEDS ORDERED: PATIENT MAY USE OWN MEDS, ALL PO SCH (12:45)
--- NOTE | 2018-11-14 12:45 | Cardiac Procedure Note-CS/ASA ---
Pre-Procedure Note Pre-Op Procedure Note H&P Reviewed The H&P was reviewed, patient examined and no changes noted. Date H&P Reviewed: Nov 14, 2018 Time H&P Reviewed: 08:00 Conscious Sedation Pre-Proced Time 08:00 ASA Score 3 For ASA 3 and 4: Consider anesthesia and medical clearance. Also, for patients with a history of failed moderate sedation consider anesthesia. Airway Lungs Heart ASA score ASA 1: a normal healthy patient ASA 2: a patient with a mild systemic disease (mid diabetes, controlled hypertension, obesity ASA 3: a patient with a severe systemic disease that limits activity (angina , COPD, prior Myocardial infarction) ASA 4: a patient with an incapacitating disease that is a constant threat to life (CHF, renal failure) ASA 5: a moribund patient not expected to survive 24 hrs. (ruptured aneurysm) ASA 6: a declared brain- patient whose organs are being harvested. For emergent operations, add the letter E after the classification Mallampati Classification Grade 1 Sedation Plan Analgesia, Amnesia, Plan communicated to team members, Discussed options with patient/fam, Discussed risks with patient/fam The patient is an appropriate candidate to undergo the planned procedure, sedation, and anesthesia. The patient immediately re-assessed prior to indication. Clay TRUJILLO MD Nov 14, 2018 12:45
--- NOTE | 2018-11-14 12:45 | Electrophysiology Procedure ---
EP Procedure DATE OF SERVICE:11/14/18 Paroxysmal atrial fibrillation ablation operative report CARDIAC SPRINKLER INSTALLER: Maria D Kirby MD, [facility], CCDS. INDICATION: Symptomatic paroxysmal atrial fibrillation. PREOPERATIVE DIAGNOSIS: Symptomatic paroxysmal atrial fibrillation. POSTOPERATIVE DIAGNOSES: Successful pulmonary vein isolation. HISTORY: This is a 48 year old gentleman with symptomatic persistent AF refractory to Antiarrhythmic therapy. The patient is planned for comprehensive EP study and AF ablation. PROCEDURE PERFORMED: 1. EP study. 2. Fluoroscopy. 3. CS pacing. 4. Drug infusion. 5. Pulmonary vein isolation (AF ablation) 6. Comprehensive 3D mapping with the carto system. COMPLICATION: None. ESTIMATED BLOOD LOSS: 10 mL. CONTRAST USED: None. FLUOROSCOPY TIME: 13.4 minutes FLUOROSCOPY DOSE: 294 mgy SPECIMENS: None. ANESTHESIA: Done by our anesthesia colleagues. ANTICOAGULATION: Eliquis uninterrupted, Heparin PROCEDURE IN DETAIL: After informed consent was taken, the patient was brought to the EP lab. Anesthesia was provided by our anesthesia colleagues. The patient was draped and prepped in the usual sterile fashion. The patient presented to the EP lab in sinus rhythm. Access was gained in the right femoral vein with a 8 Bulgarian sheath and an 8.5 Bulgarian sheath. Access was gained in the right femoral artery with a 5 Bulgarian sheath. Access was gained in the left femoral vein with two 6 Bulgarian sheaths. An ice catheter was advanced through the 8-1/2 Bulgarian sheath and placed in the right atrium. We then took a 0.032 guidewire and placed it in the SVC. The short sheath was then taken out and then a long sheath with introducer was advanced into the SVC. The guidewire was taken out and under ice and fluoroscopic guidance the long sheath and introducer were pulled back to the tip was in the fossa ovalis. The transseptal needle was advanced and then very carefully under ice and fluoroscopic guidance a single transseptal puncture was performed. IV heparin was given to a target ACT of over 300 seconds. A CS catheter was advanced through the 6 Bulgarian left femoral vein access and placed in the CS. A His Catheter was placed too. The ice catheter was used to create a cartosound image of the left atrium as well as left atrial appendage, mitral valve, all 4 pulmonary veins, esophagus. We then advanced a pentaray catheter into the left atrium and high density mapping was performed and a 3-D map was created of the left atrium. We then exchanged the mapping catheter with an irrigated ablation catheter. WACA/PVI ablation was performed for all 4 pulmonary veins. All the 4 veins were isolated. A 3D electroanatomic mapping was donewith the carto system. Isuprel was given to the dose of 20 g per KG per minute with no induction of atrial fibrillation. A EP study was done using the CS catheter. The patienttolerated the procedure well and did not have any complication.Protamine was given to reverse anticoagulation. Figure of 8 were done for venous closure. The patientleft the lab in sinus rhythm. Total ablation time was 56 minutes, 16 seconds. MEASUREMENTS/EP STUDY: AH Interval 54 ms, HV Interval 52 ms AV [id number] Atrial node [id number] PLAN: The patient will be observed overnight and will be discharged home tomorrow with precise followup instructions. Maria D Kirby MD, [facility], CCDS Cardiac Electrophysiology Clay KIRBY MD Nov 14, 2018 12:45
[2018-11-14] MEDS ORDERED: PROTAMINE 50 MG/5 ML VIAL ONE (12:49)
[2018-11-14] MEDS ORDERED: NEOSTIGMINE 1 MG/ML 5 ML SYRINGE ONE (13:00)
[2018-11-14] MEDS ORDERED: GLYCOPYRROLATE 0.2 MG/ML (ROBINUL) 2 ML VIAL ONE (13:00)
[2018-11-14] MEDS ORDERED: NS IV 1000 ML 1,000 ML ONE (13:11)
[2018-11-14] MEDS ORDERED: ONDANSETRON 4 MG/2 ML (SDV) Z0FRAN IVP PRN (14:15)
[2018-11-14] MEDS ORDERED: morphine INJ 10 MG/ML 1ML (SYR OR VIAL) IVP ONE (14:15)
--- NOTE | 2018-11-14 17:51 | NUR ---
1500 Around this time received patient into room with teacher hearing impaired accompanying patient. Patient has Arterial Line that is intact and looks to be working. Bilateral groin sites are WNL. Bilateral pedal pulses are palpable. VSS. Patient is A and O x 4.
[2018-11-14] MEDS: APIXABAN 5 MG (ELIQUIS) TABLET PO SCH (20:56)
[2018-11-14] MEDS: NS IV 1000 ML 1,000 ML IV SCH (20:59)
[2018-11-15] VITALS (10 sets, daily range): BP systolic 93–144; BP diastolic 38–65
[2018-11-15] MEDS: NS IV 1000 ML 1,000 ML IV SCH (00:58)
[2018-11-15 03:52] LABS: HEMOGLOBIN 14.6 G/DL (13.3-17.7); MEAN PLATELET VOLUME 11.5 FL (7.4-10.4); RED CELL DISTRIBUTION WIDTH 13.9 % (10.0-14.5); WHITE BLOOD COUNT 9.8 10^3/uL (4.3-11.0)
[2018-11-15 04:06] LABS: BUN/CREATININE RATIO 12; CALCIUM 8.1 MG/DL (8.5-10.1); CARBON DIOXIDE 24 MMOL/L (21-32); CHLORIDE 106 MMOL/L (98-107); CREATININE SERUM 0.78 MG/DL (0.60-1.30); GFR ESTIMATED > 60; GLUCOSE 168 MG/DL (70-105); POTASSIUM 3.5 MMOL/L (3.6-5.0); SODIUM 140 MMOL/L (135-145)
[2018-11-15] MEDS: APIXABAN 5 MG (ELIQUIS) TABLET PO SCH (08:09)
--- NOTE | 2018-11-15 14:26 | Anesthesia-General Post-Op ---
General Patient Condition Mental Status/LOC: Same as Preop Cardiovascular: Satisfactory Nausea/Vomiting: Absent Respiratory: Satisfactory Pain: Controlled Complications: Absent Post Op Complications Complications None Follow Up Care/Instructions Patient Instructions None needed. Anesthesia/Patient Condition Patient Condition Patient was seen this morning in post-op rounds and he was doing well, no complaints, stable vital signs, no apparent adverse anesthesia problems. COLLEEN SWANSON DO Nov 15, 2018 14:25
--- NOTE | 2018-11-15 17:44 | Cardiology Discharge Summary ---
Diagnosis/Chief Complaint Date of Admission 11/14/2018 Date of Discharge 11/15/2018 Admission Diagnosis Symptomatic paroxysmal atrial fibrillation refractory to antiarrhythmic therapy. Final/Discharge Diagnosis Paroxysmal atrial fibrillation, successful pulmonary vein isolation. Chief Complaint/HPI Chief Complaint/HPI This is a 48-year-old gentleman with nonischemic cardiomyopathy with dual- chamber ICD. He has paroxysmal atrial fibrillation symptomatic, refractory to antiarrhythmic therapy which is a class I indication for atrial fibrillation ablation. Discharge Summary Procedures Successful paroxysmal atrial fibrillation ablation with pulmonary vein isolation. Discharge Physical Examination Stable cardiovascular and respiratory examination. Hospital Course Was the Problem List Reviewed?: Yes Unremarkable. Discussion & Recommendations Discussion Discharge took over 30 minutes to complete. Discharge instructions discussed at length with the patient. Patient will continue AHLQUIST and amiodarone for one month. If no atrial fibrillation in 3 months, we will consider discontinuing amiodarone. Follow-up in 2-3 weeks. Follow up appt.: Dr. Kirby in 2-3 weeks. Dicharge Diet: Regular Diet Activity as Tolerated: Yes Home Medications Reviewed patient Home Medication Reconciliation performed by pharmacy medication reconciliations investment recovery technician and/or nursing. Patients Allergies have been reviewed. Discharge Home Medications: Reviewed and agree with Discharge Medication list on patient's Discharge Instruction sheet Condition at discharge Stable. Instructions to patient/family Discussed at length with the patient and family. Clay KIRBY MD Nov 15, 2018 17:44
== END 2018-11-15 09:20 | disposition home or self-care (01) ==
LOC: CATH 06:50 → ICU 16:19 → CATH 11-15 09:20
PROVIDERS: ATTEND Internal Medicine Interventional Cardiology
DX: I48.0 Paroxysmal atrial fibrillation (principal); I11.0 Hypertensive heart disease with heart failure; E78.5 Hyperlipidemia, unspecified; I42.0 Dilated cardiomyopathy; I50.9 Heart failure, unspecified; J44.9 Chronic obstructive pulmonary disease, unspecified; G47.33 Obstructive sleep apnea (adult) (pediatric); E66.9 Obesity, unspecified; Z68.36 Body mass index [BMI] 36.0-36.9, adult; F17.290 Nicotine dependence, other tobacco product, uncomplicated; Z88.0 Allergy status to penicillin; Z79.899 Other long term (current) drug therapy; Z11.2 Encounter for screening for other bacterial diseases; Z79.01 Long term (current) use of anticoagulants; Z95.810 Presence of automatic (implantable) cardiac defibrillator
CPT/HCPCS: 36415; 80048; 80053; 81000; 85027; 85610; 85730; 87081; 93005; 93613; 93622; 93656; 93662

== ENCOUNTER → 2018-12-09 | Outpatient (CLI) | payer OTHER ==
[~2018-12-09] MED LIST changes: +RT-ALBUTEROL SULF 2.5 MG/3 ML PRE-MIX VIAL INH ONE; +RT-ALBUTEROL SULF 2.5 MG/3 ML PRE-MIX VIAL ONE
== END ==
LOC: RT 10:10
PROVIDERS: ATTEND Internal Medicine Interventional Cardiology
DX: I42.0 Dilated cardiomyopathy (principal); I48.0 Paroxysmal atrial fibrillation; R06.02 Shortness of breath; I48.3 Typical atrial flutter; Z95.810 Presence of automatic (implantable) cardiac defibrillator; Z72.0 Tobacco use
CPT/HCPCS: 93306; 94060

== ENCOUNTER 2019-01-13 15:10 | Outpatient (RCR) | payer OTHER ==
[2018-10-26 12:28] LABS: ABSOLUTE RETIC # 82 10e9/L (24-90); BASOPHILS % (AUTO) 0 % (0-10); EOSINOPHILS # (AUTO) 0.2 10^3/uL (0.0-0.3); EOSINOPHILS % (AUTO) 3 % (0-10); HEMATOCRIT 52 % (40-54); LYMPHOCYTES # (AUTO) 2.2 X 10^3 (1.0-4.0); LYMPHOCYTES % (AUTO) 30 % (12-44); MEAN CORPUSCULAR HEMOGLOBIN 29 PG (25-34); MEAN CORPUSCULAR HGB CONC 34 G/DL (32-36); MEAN CORPUSCULAR VOLUME 86 FL (80-99); MEAN PLATELET VOLUME 11.2 FL (7.4-10.4); MONOCYTES # (AUTO) 0.7 X 10^3 (0.0-1.0); MONOCYTES % (AUTO) 9 % (0-12); NEUTROPHILS # (AUTO) 4.3 X 10^3 (1.8-7.8); NEUTROPHILS % (AUTO) 58 % (42-75); PLATELET COUNT 161 10^3/uL (130-400); RED CELL DISTRIBUTION WIDTH 14.4 % (10.0-14.5); RETICULOCYTE % 1.33 % (0.50-2.40); WHITE BLOOD COUNT 7.4 10^3/uL (4.3-11.0)
[2018-10-26 14:27] LABS: BAND NEUTROPHILS 1 %; BASOPHILS % (MANUAL) 0 %; EOSINOPHILS % (MANUAL) 4 %; LYMPHOCYTES % (MANUAL) 23 %; MONOCYTES % (MANUAL) 9 %; NEUTROPHILS % (MANUAL) 62 %; RBC MORPH NORMAL; REACTIVE LYMPHOCYTES 1 %
[2019-01-09 15:29] LABS: BASOPHILS % (AUTO) 0 % (0-10); EOSINOPHILS # (AUTO) 0.2 10^3/uL (0.0-0.3); EOSINOPHILS % (AUTO) 3 % (0-10); HEMATOCRIT 48 % (40-54); HEMOGLOBIN 16.5 G/DL (13.3-17.7); LYMPHOCYTES % (AUTO) 31 % (12-44); MEAN CORPUSCULAR HEMOGLOBIN 29 PG (25-34); MEAN CORPUSCULAR HGB CONC 34 G/DL (32-36); MEAN CORPUSCULAR VOLUME 86 FL (80-99); MEAN PLATELET VOLUME 11.2 FL (7.4-10.4); MONOCYTES # (AUTO) 0.7 X 10^3 (0.0-1.0); MONOCYTES % (AUTO) 11 % (0-12); NEUTROPHILS # (AUTO) 3.5 X 10^3 (1.8-7.8); NEUTROPHILS % (AUTO) 55 % (42-75); PLATELET COUNT 155 10^3/uL (130-400); RED CELL DISTRIBUTION WIDTH 13.9 % (10.0-14.5); WHITE BLOOD COUNT 6.3 10^3/uL (4.3-11.0)
[~2019-01-13 15:10] MED LIST changes: -RT-ALBUTEROL SULF 2.5 MG/3 ML PRE-MIX VIAL INH ONE; -RT-ALBUTEROL SULF 2.5 MG/3 ML PRE-MIX VIAL ONE
== END 2019-01-24 | disposition home or self-care (01) ==
LOC: ONC 15:10
PROVIDERS: ATTEND Internal Medicine Hematology & Oncology
DX: D75.1 Secondary polycythemia (principal); F17.210 Nicotine dependence, cigarettes, uncomplicated; E03.9 Hypothyroidism, unspecified; I10 Essential (primary) hypertension; E11.9 Type 2 diabetes mellitus without complications; J44.9 Chronic obstructive pulmonary disease, unspecified; G47.33 Obstructive sleep apnea (adult) (pediatric); I42.0 Dilated cardiomyopathy; E78.5 Hyperlipidemia, unspecified; I48.0 Paroxysmal atrial fibrillation; Z95.810 Presence of automatic (implantable) cardiac defibrillator; Z79.899 Other long term (current) drug therapy
CPT/HCPCS: 36415; 81270; 82668; 82728; 83540; 85007; 85025; 85027; 85045; 99213; 99214

== ENCOUNTER → 2019-03-14 | Outpatient (CLI) | payer OTHER ==
[~2019-03-14] MED LIST changes: -OMEP20CA12 PO; +OMEP20CA13 PO
--- NOTE | 2019-03-14 17:53 | Diagnostic Imaging Report ---
INDICATION: Medication monitoring. TIME OF EXAM: 4:31 p.m. COMPARISON: Correlation is made with prior chest from 09/03/2018. FINDINGS: The heart size is stable. Cardiac defibrillator is in place. Lungs are hyperinflated consistent with COPD. No infiltrates are seen. There is no effusion or pneumothorax. IMPRESSION: COPD. No acute feature is detected. Dictated by: Dictated on workstation # [id number]
== END ==
LOC: RAD 15:56
PROVIDERS: ATTEND Internal Medicine Interventional Cardiology
DX: Z51.81 Encounter for therapeutic drug level monitoring (principal); J44.9 Chronic obstructive pulmonary disease, unspecified
CPT/HCPCS: 71046

== ENCOUNTER 2019-04-10 15:16 | Emergency (ER) | payer OTHER ==
[~2019-04-10] VITALS: Ht 177.8 cm; Wt 118.0 kg
[2019-04-10] MEDS ORDERED: BUPIVACAINE 0.5% 30 ML (SENSORCAINE) VIAL INJ ONE (16:15)
--- NOTE | 2019-04-10 16:28 | Diagnostic Imaging Report ---
INDICATION: Fall with right knee pain. AP, oblique, and lateral views of the right knee are obtained. FINDINGS: There is intramedullary eric in the right tibia. There is no acute fracture seen. There appears to be an old fracture deformity of the proximal fibula. There are no prior studies for comparison. There is no joint effusion. IMPRESSION: Intramedullary eric in place in the tibial shaft. Mild old fracture deformity of proximal fibula. No acute fracture visualized. Dictated by: Dictated on workstation # [id number]
[2019-04-10] MEDS ORDERED: TETANUS,DIPTH,PERTUSS P/F (BOOSTRIX) 0.5 ML VIAL IM ONE (16:45)
--- NOTE | 2019-04-10 16:49 | ED Lower Extremity ---
General Chief Complaint: Lower Extremity Stated Complaint: FELL/ LEFT LOWER EXTREMITY INJURY Nursing Triage Note: Ambulatory to triage. Pt reports falling on knees and shins on some rocks on Wednesday morning. Pt c/o R knee pain. Pt also c/o L big toe pain and concern nail is coming off. Pt presented to ED with L toe wrapped. L toenail is white and has cut to skin. Pt has multiple abrasion and areas of bruising to both legs. Pt unsure of last tetanus shot. Nursing Sepsis Screen: No Definite Risk Source: patient Exam Limitations: no limitations History of Present Illness Date Seen by Provider: Apr 10, 2019 Time Seen by Provider: 16:46 Initial Comments To ER with reports of a fall while at the [place] yesterday morning early. Multiple abrasions to both lower extremities, also peeled back his left great toenail. Onset: just prior to arrival Severity: moderate Pain/Injury Location: left 1st toe Method of Injury: fell Modifying Factors: Worse With Movement Allergies and Home Medications Allergies Coded Allergies: Penicillins (Verified Allergy, Unknown, "LONG AGO DON'T REMEMBER REACTION", 09/17/06) Home Medications Albuterol Sulfate 18 Gm Hfa.aer.ad, 2 PUFF IH QID PRN for WHEEZING, (Reported) Amiodarone HCl 100 Mg Tablet, 100 MG PO BID, (Reported) Apixaban 5 Mg Tablet, 5 MG PO BID, (Reported) Fluticasone/Vilanterol 1 Each Blst.w.dev, 1 EACH IH DAILY, (Reported) Furosemide 40 Mg Tablet, 40 MG PO DAILY, (Reported) Losartan Potassium 50 Mg Tablet, 50 MG PO DAILY, (Reported) Metoprolol Tartrate 100 Mg Tablet, 150 MG PO BID, (Reported) take 1 1/2 of 100mg tab Montelukast Sodium 10 Mg Tablet, 10 MG PO DAILY, (Reported) Multivitamin 1 Each Tablet, 1 EACH PO DAILY, (Reported) Omeprazole 20 Mg Capsule.dr, 20 MG PO DAILY, (Reported) Potassium Chloride 20 Meq Tab.er.prt, 40 MEQ PO DAILY, (Reported) TAKES 2 (20MEQ) TABLETS Thyroid,Pork 120 Mg Tablet, 120 MG PO DAILY, (Reported) Patient Home Medication List Home Medication List Reviewed: Yes Review of Systems Constitutional: see HPI EENTM: see HPI Respiratory: no symptoms reported Cardiovascular: no symptoms reported Genitourinary: no symptoms reported Musculoskeletal: no symptoms reported Skin: no symptoms reported Psychiatric/Neurological: No Symptoms Reported Past Ckyeuna-Fjchrl-Nbpazn Hx Patient Social History Alcohol Use: Occasionally Uses Number of Drinks Today: AA Alcohol Beverage of Choice: Beer Recreational Drug Use: No Smoking Status: Current Everyday Smoker Type Used: Cigarettes 2nd Hand Smoke Exposure: Yes Recent Foreign Travel: No Contact w/Someone Who Travel: No Recent Infectious Disease Expo: No Recent Hopitalizations: No Physical Abuse: No Sexual Abuse: No Mistreated: No Immunizations Up To Date Tetanus Booster (TDap): Unknown PED Vaccines UTD: No Date of Influenza Vaccine: Sep 03, 2018 Seasonal Allergies Seasonal Allergies: No Past Medical History Surgeries: Yes (thyroidectomy, INTRAMEDULLARY NAILING R DISTAL TIBIA WITH C- ARM) Defibrillator, Orthopedic Respiratory: Yes Asthma, Sleep Apnea Currently Using CPAP: Yes Currently Using BIPAP: No Cardiac: Yes (HX R ABLATION) Atrial Fibrillation, Hypertension Neurological: No Reproductive Disorders: No Sexually Transmitted Disease: No HIV/AIDS: No Genitourinary: No Gastrointestinal: Yes Gastroesophageal Reflux Musculoskeletal: No Endocrine: Yes Hypothyroidsim HEENT: No Loss of Vision: Denies Hearing Impairment: Denies Cancer: No Psychosocial: No Integumentary: No Blood Disorders: No Adverse Reaction/Blood Tranf: No Family Medical History CAD Under 55 Years Old Physical Exam Vital Signs Vital Signs - First Documented 04/10/19 15:26 Temp 36.7 Pulse 81 Resp 16 B/P (MAP) 127/80 (96) Pulse Ox 97 O2 Delivery Room Air Capillary Refill : Less Than 3 Seconds Height, Weight, BMI Height: 5'10.00" Weight: 252lbs. 0.0oz. 114.102346sa; 37.00 BMI Method:Stated General Appearance: WD/WN, no apparent distress HEENT: PERRL/EOMI, normal ENT inspection Respiratory: no respiratory distress, no accessory muscle use Hips: bilateral hip non-tender, bilateral hip normal inspection, bilateral hip normal range of motion Legs: bilateral leg non-tender, bilateral leg normal inspection, bilateral leg normal range of motion Knees: bilateral knee non-tender, bilateral knee normal inspection, bilateral knee normal range of motion Ankles: bilateral ankle non-tender, bilateral ankle normal inspection, bilateral ankle normal range of motion Feet: bilateral foot non-tender, bilateral foot normal inspection, bilateral foot normal range of motion Neurologic/Psychiatric: alert, normal mood/affect, oriented x 3 Skin: normal color, warm/dry There is an almost complete avulsion of the left great toenail, it remains attached proximally and laterally. There is some peripheral material coming from beneath it. Because of this a digital block was done using 5 mL of 0.5% bupivacaine without epinephrine, toenail was then removed easily with a pair of curved hemostats. This was wrapped with Xeroform, 4 x 4 and Coban by nursing staff. The medial proximal right tibia is ecchymotic and tender, there are several abrasions to the anterior aspect of the lower legs bilaterally. No cellulitis, no draining wounds. Progress/Results/Core Measures Results/Orders My Orders Orders - BRAD ANDUJAR APRN Wound Culture (04/10/19 16:02) Knee, Right, 3 Views (04/10/19 16:02) Bupivacaine 0.5% Injection (Sensorcaine (04/10/19 16:15) Dipht,Pertuss(Acell),Tet Adult (Boostrix (04/10/19 16:45) Medications Given in ED Current Medications Medications Dose Ordered Sig/Savage Route Start Time Stop Time Status Last Admin Dose Admin Bupivacaine HCl 30 ml ONCE ONCE INJ 04/10/19 16:15 04/10/19 16:16 DC 04/10/19 16:16 5 ML Vital Signs/I&O 04/10/19 15:26 Temp 36.7 Pulse 81 Resp 16 B/P (MAP) 127/80 (96) Pulse Ox 97 O2 Delivery Room Air Blood Pressure Mean: 96 Departure Impression Primary Impression: Toenail avulsion Qualified Codes: S91.209A - Unspecified open wound of unspecified toe(s) with damage to nail, initial encounter Additional Impression: Contusion of left leg Qualified Codes: S80.12XA - Contusion of left lower leg, initial encounter Disposition: 01 HOME, SELF-CARE Condition: Stable Departure-Patient Inst. Decision time for Depature: 16:48 Referrals: SARAH SUBRAMANIAN MD (PCP/Family) Primary Care Physician Patient Instructions: Wound Care, Wound Infection Add. Discharge Instructions: 1. Return to ER for any swelling redness increasing pain or fevers. Antibiotics as directed. Follow-up with Dr. MARILYNN this week for recheck. He can leave this dressing in place for about 36-48 hours, then remove it and either leave the toe open to air or covered with a Band-Aid, which ever he would rather. All discharge instructions reviewed with patient and/or family. Voiced understanding. Scripts Clindamycin HCl (Clindamycin HCl) 300 Mg Capsule 300 MG PO TID, #21 CAP Prov: BRAD ANDUJAR APRN 04/10/19 BRAD ANDUJAR APRN Apr 10, 2019 16:49
[2019-04-10] MEDS ORDERED: CLIN300C11 PO (16:50)
[2019-04-10 16:57] VITALS: BP 127/80
== END 2019-04-10 16:57 | disposition home or self-care (01) ==
LOC: EDUNIT# 15:16 → ER 15:17
DX: S91.202A Unspecified open wound of left great toe with damage to nail, initial encounter (principal); S80.12XA Contusion of left lower leg, initial encounter; S80.811A Abrasion, right lower leg, initial encounter; G47.30 Sleep apnea, unspecified; J45.909 Unspecified asthma, uncomplicated; I48.91 Unspecified atrial fibrillation; I10 Essential (primary) hypertension; K21.9 Gastro-esophageal reflux disease without esophagitis; E03.9 Hypothyroidism, unspecified; F17.210 Nicotine dependence, cigarettes, uncomplicated; Z88.0 Allergy status to penicillin; Z95.810 Presence of automatic (implantable) cardiac defibrillator; Z82.49 Family history of ischemic heart disease and other diseases of the circulatory system; W19.XXXA Unspecified fall, initial encounter
CPT/HCPCS: 64450; 73562; 87070; 87205; 90471; 90715

== ENCOUNTER → 2019-04-18 | Outpatient (CLI) | payer OTHER | LOC: CARD 11:44 | PROVIDERS: ATTEND Internal Medicine Interventional Cardiology | DX: I07.1 Rheumatic tricuspid insufficiency (principal); I42.0 Dilated cardiomyopathy; I48.0 Paroxysmal atrial fibrillation; I48.3 Typical atrial flutter; Z95.810 Presence of automatic (implantable) cardiac defibrillator; Z72.0 Tobacco use | CPT/HCPCS: 93306 ==

== ENCOUNTER 2019-04-19 15:18 | Outpatient (RCR) | payer OTHER ==
[2019-04-19 15:28] LABS: BASOPHILS % (AUTO) 0 % (0-10); EOSINOPHILS # (AUTO) 0.3 10^3/uL (0.0-0.3); EOSINOPHILS % (AUTO) 3 % (0-10); HEMATOCRIT 49 % (40-54); HEMOGLOBIN 16.8 G/DL (13.3-17.7); LYMPHOCYTES % (AUTO) 27 % (12-44); MEAN CORPUSCULAR HEMOGLOBIN 30 PG (25-34); MEAN CORPUSCULAR HGB CONC 34 G/DL (32-36); MEAN CORPUSCULAR VOLUME 88 FL (80-99); MEAN PLATELET VOLUME 11.5 FL (7.4-10.4); MONOCYTES # (AUTO) 0.8 X 10^3 (0.0-1.0); MONOCYTES % (AUTO) 10 % (0-12); NEUTROPHILS # (AUTO) 4.4 X 10^3 (1.8-7.8); NEUTROPHILS % (AUTO) 59 % (42-75); PLATELET COUNT 165 10^3/uL (130-400); RED CELL DISTRIBUTION WIDTH 13.9 % (10.0-14.5); WHITE BLOOD COUNT 7.5 10^3/uL (4.3-11.0)
== END 2019-07-18 | disposition home or self-care (01) ==
LOC: ONC 15:18
PROVIDERS: ATTEND Internal Medicine Hematology & Oncology
DX: D75.1 Secondary polycythemia (principal); F17.210 Nicotine dependence, cigarettes, uncomplicated; E03.9 Hypothyroidism, unspecified; I10 Essential (primary) hypertension; E11.9 Type 2 diabetes mellitus without complications; J44.9 Chronic obstructive pulmonary disease, unspecified; G47.33 Obstructive sleep apnea (adult) (pediatric); I42.0 Dilated cardiomyopathy; E78.5 Hyperlipidemia, unspecified; I48.0 Paroxysmal atrial fibrillation; Z95.810 Presence of automatic (implantable) cardiac defibrillator; Z79.899 Other long term (current) drug therapy
CPT/HCPCS: 36415; 85025; 99213

== ENCOUNTER → 2019-10-05 | Outpatient (CLI) | payer OTHER ==
[~2019-10-05] MED LIST changes: -DIGO250T PO; +DIGO250T3 PO; -MONT10TA24 PO; +MONT10TA26 PO; -OMEP20CA13 PO; +OMEP20CA18 PO; -TELM40TA3 PO; +TELM40TA6 PO
[2019-10-05 16:06] LABS: ABSOLUTE RETIC # 70 10e9/L (24-90); BASOPHILS % (AUTO) 0 % (0-10); EOSINOPHILS # (AUTO) 0.2 10^3/uL (0.0-0.3); EOSINOPHILS % (AUTO) 3 % (0-10); HEMATOCRIT 50 % (40-54); HEMOGLOBIN 17.1 G/DL (13.3-17.7); LYMPHOCYTES # (AUTO) 1.9 X 10^3 (1.0-4.0); LYMPHOCYTES % (AUTO) 29 % (12-44); MEAN CORPUSCULAR HEMOGLOBIN 30 PG (25-34); MEAN CORPUSCULAR HGB CONC 35 G/DL (32-36); MEAN CORPUSCULAR VOLUME 86 FL (80-99); MEAN PLATELET VOLUME 10.9 FL (7.4-10.4); MONOCYTES # (AUTO) 0.8 X 10^3 (0.0-1.0); MONOCYTES % (AUTO) 12 % (0-12); NEUTROPHILS # (AUTO) 3.7 X 10^3 (1.8-7.8); NEUTROPHILS % (AUTO) 56 % (42-75); RED CELL DISTRIBUTION WIDTH 13.9 % (10.0-14.5); RETICULOCYTE % 1.21 % (0.50-2.40); WHITE BLOOD COUNT 6.7 10^3/uL (4.3-11.0)
[2019-10-05 22:17] LABS: BAND NEUTROPHILS 1 %; EOSINOPHILS % (MANUAL) 2 %; LYMPHOCYTES % (MANUAL) 26 %; MONOCYTES % (MANUAL) 14 %; NEUTROPHILS % (MANUAL) 52 %
[2019-10-05 22:20] LABS: REACTIVE LYMPHOCYTES 5 %
[2019-10-05 22:25] LABS: PLATELET COUNT 183 10^3/uL (130-400)
== END ==
LOC: LAB 15:46
PROVIDERS: ATTEND Family Medicine
DX: D72.819 Decreased white blood cell count, unspecified (principal); D69.6 Thrombocytopenia, unspecified
CPT/HCPCS: 36415; 85007; 85027; 85045

== ENCOUNTER 2020-10-22 12:57 | Outpatient (RCR) | payer OTHER ==
[~2020-10-22 12:57] MED LIST changes: -AMIO200T4 PO; +AMIO200T6 PO; +ASPI-1238 PO; -ASPI-983 PO; -CLIN300C11 PO; +CLIN300C12 PO; -LISI10TA2 PO; +LISI10TA25 PO; -MONT10TA26 PO; +MONT10TA32 PO
[2020-10-29] MEDS ORDERED: SACU1TAB2 PO (11:01)
[2020-10-29] MEDS ORDERED: GLIP5TAB13 PO (11:01)
[2020-10-29] MEDS ORDERED: SAXA5TAB PO (11:01)
[2020-10-29] MEDS ORDERED: MULT-1136 PO (11:01)
[2020-10-29] MEDS ORDERED: FLUT1DIS26 IH (11:01)
[2020-10-30] MEDS ORDERED: METO100T12 PO (09:05)
[2020-10-30] MEDS ORDERED: AMIO200T6 PO (09:05)
== END 2021-01-20 | disposition home or self-care (01) ==
LOC: ONC 12:57
PROVIDERS: ATTEND Internal Medicine Hematology & Oncology
DX: D75.1 Secondary polycythemia (principal); I10 Essential (primary) hypertension; E11.9 Type 2 diabetes mellitus without complications; I48.91 Unspecified atrial fibrillation; I48.92 Unspecified atrial flutter; J44.9 Chronic obstructive pulmonary disease, unspecified
CPT/HCPCS: 82728; 83540; 83550; G0463; 99213

== ENCOUNTER 2020-10-29 01:23 | Observation (INO) | payer OTHER ==
[~2020-10-29] VITALS: Ht 177.8 cm; Wt 110.9 kg
--- NOTE | 2020-10-29 01:39 | ED Cardiac General ---
History of Present Illness General Chief Complaint: Cardiac/General Problems Stated Complaint: HEART POUNDING Source: patient Exam Limitations: no limitations History of Present Illness Date Seen by Provider: Oct 29, 2020 Time Seen by Provider: 01:29 Initial Comments The patient presents to the ER by private conveyance from home with chief complaint that he was woken just prior to arrival from sleep with his heart feeling like it was beating very fast pounding out of his chest. He has a history of paroxysmal atrial fibrillation and AICD defibrillator. He has no history of coronary disease. He is not having chest pain or shortness of air. He does take amiodarone, metoprolol, Entresto and Eliquis. He has a history of hypothyroidism and follows with Dr. Newberry and now Dr. Stephens. Allergies and Home Medications Allergies Coded Allergies: Penicillins (Verified Allergy, Unknown, "LONG AGO DON'T REMEMBER REACTION", 09/17/06) Home Medications Albuterol Sulfate 18 Gm Hfa.aer.ad, 2 PUFF IH QID PRN for WHEEZING, (Reported) Amiodarone HCl 100 Mg Tablet, 100 MG PO BID, (Reported) Apixaban 5 Mg Tablet, 5 MG PO BID, (Reported) Clindamycin HCl 300 Mg Capsule, 300 MG PO TID Prescribed by: BRAD ANDUJAR on 04/10/19 1650 Fluticasone/Vilanterol 1 Each Blst.w.dev, 1 EACH IH DAILY, (Reported) Furosemide 40 Mg Tablet, 40 MG PO DAILY, (Reported) Losartan Potassium 50 Mg Tablet, 50 MG PO DAILY, (Reported) Metoprolol Tartrate 100 Mg Tablet, 150 MG PO BID, (Reported) take 1 1/2 of 100mg tab Montelukast Sodium 10 Mg Tablet, 10 MG PO DAILY, (Reported) Multivitamin 1 Each Tablet, 1 EACH PO DAILY, (Reported) Omeprazole 20 Mg Capsule.dr, 20 MG PO DAILY, (Reported) Potassium Chloride 20 Meq Tab.er.prt, 40 MEQ PO DAILY, (Reported) TAKES 2 (20MEQ) TABLETS Thyroid,Pork 120 Mg Tablet, 120 MG PO DAILY, (Reported) Patient Home Medication List Home Medication List Reviewed: Yes Review of Systems Review of Systems Constitutional: No chills, No diaphoresis EENTM: No Blurred Vision, No Double Vision Respiratory: Denies Cough, Denies Shortness of Air Cardiovascular: Denies Chest Pain, Denies Lightheadedness Gastrointestinal: Denies Constipated, Denies Diarrhea, Denies Nausea Genitourinary: Denies Burning, Denies Discharge Musculoskeletal: No back pain, No joint pain Skin: No pruritus, No rash Psychiatric/Neurological: Denies Headache, Denies Numbness All Other Systems Reviewed Negative Unless Noted: Yes Past Xcfhckp-Hlzvqv-Puqwdu Hx Patient Social History Alcohol Use: Occasionally Uses Alcohol Beverage of Choice: Beer Smoking Status: Current Everyday Smoker Type Used: Cigarettes 2nd Hand Smoke Exposure: Yes Recent Hopitalizations: No Immunizations Up To Date Tetanus Booster (TDap): Unknown PED Vaccines UTD: No Date of Influenza Vaccine: Sep 03, 2018 Seasonal Allergies Seasonal Allergies: No Past Medical History Surgeries: Yes (thyroidectomy, INTRAMEDULLARY NAILING R DISTAL TIBIA WITH C- ARM) Defibrillator, Orthopedic Respiratory: Yes Asthma, Sleep Apnea Currently Using CPAP: Yes Currently Using BIPAP: No Cardiac: Yes (HX R ABLATION) Atrial Fibrillation, Hypertension Neurological: No Reproductive Disorders: No Sexually Transmitted Disease: No HIV/AIDS: No Genitourinary: No Gastrointestinal: Yes Gastroesophageal Reflux Musculoskeletal: No Endocrine: Yes Hypothyroidsim HEENT: No Loss of Vision: Denies Hearing Impairment: Denies Cancer: No Psychosocial: No Integumentary: No Blood Disorders: No Adverse Reaction/Blood Tranf: No Family Medical History CAD Under 55 Years Old Physical Exam Vital Signs Vital Signs - First Documented 10/29/20 10/29/20 01:28 01:38 Temp 36.5 Pulse 160 Resp 16 B/P (MAP) 136/94 (108) Pulse Ox 94 O2 Delivery Room Air O2 Flow Rate 2.00 Capillary Refill : Less Than 3 Seconds Height, Weight, BMI Height: 5'10.00" Weight: 252lbs. 0.0oz. 114.712479la; 37.00 BMI Method:Stated General Appearance: No Apparent Distress, WD/WN HEENT: PERRL/EOMI, Pharynx Normal, Moist Mucous Membranes Neck: Normal Inspection, Non Tender Respiratory: Lungs Clear, Normal Breath Sounds, No Accessory Muscle Use, No Respiratory Distress Cardiovascular: No Gallop, No Murmur, Normal Peripheral Pulses, Irregularly Irregular, Tachycardia Extremity: Normal Capillary Refill, Normal Inspection Neurologic/Psychiatric: Alert, Oriented x3 Skin: Normal Color, Warm/Dry Progress/Results/Core Measures Results/Orders Lab Results Laboratory Tests Test 10/29/20 01:30 Range/Units White Blood Count 7.7 4.3-11.0 10^3/uL Red Blood Count 6.80 H 4.30-5.52 10^6/uL Hemoglobin 20.1 H 13.3-17.7 g/dL Hematocrit 61 H 40-54 % Mean Corpuscular Volume 89 80-99 fL Mean Corpuscular Hemoglobin 30 25-34 pg Mean Corpuscular Hemoglobin Concent 33 32-36 g/dL Red Cell Distribution Width 13.2 10.0-14.5 % Platelet Count 196 130-400 10^3/uL Mean Platelet Volume 11.4 9.0-12.2 fL Immature Granulocyte % (Auto) 0 % Neutrophils (%) (Auto) 51 42-75 % Lymphocytes (%) (Auto) 34 12-44 % Monocytes (%) (Auto) 11 0-12 % Eosinophils (%) (Auto) 4 0-10 % Basophils (%) (Auto) 1 0-10 % Neutrophils # (Auto) 3.9 1.8-7.8 10^3/uL Lymphocytes # (Auto) 2.6 1.0-4.0 10^3/uL Monocytes # (Auto) 0.8 0.0-1.0 10^3/uL Eosinophils # (Auto) 0.3 0.0-0.3 10^3/uL Basophils # (Auto) 0.0 0.0-0.1 10^3/uL Immature Granulocyte # (Auto) 0.0 0.0-0.1 10^3/uL Prothrombin Time 12.5 12.2-14.7 SEC INR Comment 0.9 0.8-1.4 Activated Partial Thromboplast Time 29 24-35 SEC Sodium Level 139 135-145 MMOL/L Potassium Level 3.7 3.6-5.0 MMOL/L Chloride Level 101 98-107 MMOL/L Carbon Dioxide Level 21 21-32 MMOL/L Anion Gap 17 H 5-14 MMOL/L Blood Urea Nitrogen 8 7-18 MG/DL Creatinine 0.98 0.60-1.30 MG/DL Estimat Glomerular Filtration Rate > 60 BUN/Creatinine Ratio 8 Glucose Level 152 H 70-105 MG/DL Calcium Level 9.2 8.5-10.1 MG/DL Corrected Calcium 9.0 8.5-10.1 MG/DL Magnesium Level 2.1 1.6-2.4 MG/DL Total Bilirubin 0.7 0.1-1.0 MG/DL Aspartate Amino Transf (AST/SGOT) 36 H 5-34 U/L Alanine Aminotransferase (ALT/SGPT) 59 H 0-55 U/L Alkaline Phosphatase 83 40-136 U/L Myoglobin 30.4 10.0-92.0 NG/ML Troponin I < 0.028 <0.028 NG/ML Total Protein 7.3 6.4-8.2 GM/DL Albumin 4.3 3.2-4.5 GM/DL My Orders Orders - TATE MALIN Continuous Ekg Monitoring (10/29/20 01:28) Ekg Tracing (10/29/20:28) Cbc With Automated Diff (10/29/20 01:34) Magnesium (10/29/20 01:34) Comprehensive Metabolic Panel (10/29/20 01:34) Myoglobin Serum (10/29/20 01:34) Protime With Inr (10/29/20 01:34) Partial Thromboplastin Time (10/29/20 01:34) O2 (10/29/20 01:34) Lipid Panel (10/30/20 06:00) Ed Iv/Invasive Line Start (10/29/20 01:34) Troponin I (10/29/20 01:34) Diltiazem Drip Pre-Mix (Cardizem Drip Pr (10/29/20 01:45) Diltiazem Injection (Cardizem Injection) (10/29/20 01:45) Adenosine Injection (Adenocard Injection (10/29/20 01:45) Adenosine Injection (Adenocard Injection (10/29/20 02:00) Ns (Ivpb) (Sodium Chloride 0.9% Ivpb Bag (10/29/20 01:46) Lactated Ringers (Lr 1000 Ml Iv Solution (10/29/20 02:15) Lactated Ringers (Lr 1000 Ml Iv Solution (10/29/20 01:56) Medications Given in ED Current Medications Medications Dose Ordered Sig/Savage Route Start Time Stop Time Status Last Admin Dose Admin Adenosine 6 mg ONCE ONCE IV 10/29/20 01:45 10/29/20 01:46 DC 10/29/20 01:44 6 MG Adenosine 12 mg ONCE ONCE IV 10/29/20 02:00 10/29/20 02:01 DC 10/29/20 01:59 12 MG Diltiazem HCl 10 mg ONCE ONCE IVP 10/29/20 01:45 10/29/20 01:46 DC 10/29/20 01:59 10 MG Lactated Ringer's 1,000 ml @ 0 mls/hr Q0M ONCE IV 10/29/20 02:15 10/29/20 02:16 DC 10/29/20 02:03 0 MLS/HR Vital Signs/I&O 10/29/20 10/29/20 01:28 01:38 Temp 36.5 Pulse 160 Resp 16 B/P (MAP) 136/94 (108) Pulse Ox 94 94 O2 Delivery Room Air Nasal Cannula O2 Flow Rate 2.00 Progress Progress Note : Time: 02:43 Progress Note Patient's tachycardia it looked fairly regular and was in the 170-190 range which was concerning that it may be he instead of atrial fibrillation despite his history. We gave him a dose of 6 mg of Adenocard which did nothing and then 12 mg which slowed his heart rate down and demonstrated atrial fibrillation underneath. We initiated Cardizem and up to 15 mg/h the patient is under decent control [place] [id number]. Initial ECG Impression Date: Oct 29, 2020 Initial ECG Impression Time: 01:31 Initial ECG Rate: 158 Initial ECG Rhythm: A Fib/Flutter Initial ECG Intervals: QT (457) Initial ECG Impression: Atrial Fibrillation w/RVR Comment Atrial fibrillation with rapid ventricular response. No clinically relevant ST changes. EKG #1: EKG Time: 01:42 Rhythm: A Fib/Flutter ECG Impression: Atrial Fibrillation w/RVR Comment Adenocard 6 mg EKG #2: EKG Time: 01:45 Rhythm: A Fib/Flutter ECG Impression: Atrial Fibrillation w/RVR Comment Adenocard 12 mg shows slowing of the heart rate and underlying atrial fibrillation. Departure Communication (Admissions) Time/Spoke to Admitting Phy: 02:50 Discussed the case with Dr. Newberry and she agrees to observe the patient in the ICU on Cardizem drip with cardiac consultation. Time/Spoke to Consulting Phy: 02:45 Discussed the case with Dr. Reis and he agrees to consult on the case. Impression Primary Impression: Atrial flutter with rapid ventricular response Disposition: ADMITTED INPATIENT Condition: Stable Admissions Decision to Admit Reason: Admit from ER (General) Decision to Admit/Date: Oct 29, 2020 Time/Decision to Admit Time: 01:30 Departure-Patient Inst. Referrals: SARAH NEWBERRY MD (PCP/Family) Primary Care Physician TATE MALIN Oct 29, 2020 01:39
[2020-10-29] MEDS ORDERED: ADENOSINE 6 MG/2 ML (ADENOCARD) VIAL IV ONE ×2 (01:45→02:00)
[2020-10-29] MEDS ORDERED: dilTIAZem DRIP PRE-MIX 125 ML IV SCH (01:45)
[2020-10-29] MEDS ORDERED: NS (IVPB) 100 ML ONE (01:46)
[2020-10-29 01:55] LABS: BASOPHILS % (AUTO) 1 % (0-10); EOSINOPHILS # (AUTO) 0.3 10^3/uL (0.0-0.3); EOSINOPHILS % (AUTO) 4 % (0-10); HEMATOCRIT 61 % (40-54); HEMOGLOBIN 20.1 g/dL (13.3-17.7); LYMPHOCYTES # (AUTO) 2.6 10^3/uL (1.0-4.0); LYMPHOCYTES % (AUTO) 34 % (12-44); MEAN CORPUSCULAR HEMOGLOBIN 30 pg (25-34); MEAN CORPUSCULAR HGB CONC 33 g/dL (32-36); MEAN CORPUSCULAR VOLUME 89 fL (80-99); MEAN PLATELET VOLUME 11.4 fL (9.0-12.2); MONOCYTES # (AUTO) 0.8 10^3/uL (0.0-1.0); MONOCYTES % (AUTO) 11 % (0-12); NEUTROPHILS # (AUTO) 3.9 10^3/uL (1.8-7.8); NEUTROPHILS % (AUTO) 51 % (42-75); PLATELET COUNT 196 10^3/uL (130-400); WHITE BLOOD COUNT 7.7 10^3/uL (4.3-11.0)
[2020-10-29] MEDS ORDERED: LACTATED RINGERS 1,000 ML IV ONE ×2 (01:56→02:15)
[2020-10-29 02:01] LABS: ALBUMIN 4.3 GM/DL (3.2-4.5); CHLORIDE 101 MMOL/L (98-107); INR 0.9 (0.8-1.4); POTASSIUM 3.7 MMOL/L (3.6-5.0); PROTHROMBIN TIME PATIENT 12.5 SEC (12.2-14.7); SODIUM 139 MMOL/L (135-145)
[2020-10-29 02:02] LABS: CALCIUM 9.2 MG/DL (8.5-10.1)
[2020-10-29 02:03] LABS: GLUCOSE 152 MG/DL (70-105)
[2020-10-29 02:04] LABS: TOTAL PROTEIN 7.3 GM/DL (6.4-8.2)
[2020-10-29 02:05] LABS: CARBON DIOXIDE 21 MMOL/L (21-32)
[2020-10-29 02:06] LABS: BILIRUBIN,TOTAL 0.7 MG/DL (0.1-1.0)
[2020-10-29 02:07] LABS: ALKALINE PHOSPHATASE 83 U/L (40-136); CREATININE SERUM 0.98 MG/DL (0.60-1.30); GFR ESTIMATED > 60
[2020-10-29 02:08] LABS: BUN/CREATININE RATIO 8
[2020-10-29 02:10] LABS: ALANINE AMINOTRANSFERASE 59 U/L (0-55); MAGNESIUM 2.1 MG/DL (1.6-2.4)
[2020-10-29 03:07] VITALS: BP 109/71
[2020-10-29] MEDS ORDERED: ONDANSETRON 4 MG/2 ML (SDV) Z0FRAN IV PRN (03:30)
[2020-10-29] MEDS: LACTATED RINGERS 1,000 ML IV SCH ×3 (03:41→23:08)
--- NOTE | 2020-10-29 05:32 | Pulmonary Consultation ---
History of Present Illness History of Present Illness Date Seen by Provider: Oct 29, 2020 Time Seen by Provider: 05:28 Date of Admission Allergies and Home Medications Allergies Coded Allergies: Penicillins (Verified Allergy, Unknown, "LONG AGO DON'T REMEMBER REACTION", 09/17/06) Home Medications Albuterol Sulfate 18 Gm Hfa.aer.ad, 2 PUFF IH QID PRN for WHEEZING, (Reported) Amiodarone HCl 100 Mg Tablet, 100 MG PO BID, (Reported) Apixaban 5 Mg Tablet, 5 MG PO BID, (Reported) Clindamycin HCl 300 Mg Capsule, 300 MG PO TID Prescribed by: BRAD ANDUJAR on 04/10/19 1650 Fluticasone/Vilanterol 1 Each Blst.w.dev, 1 EACH IH DAILY, (Reported) Furosemide 40 Mg Tablet, 40 MG PO DAILY, (Reported) Losartan Potassium 50 Mg Tablet, 50 MG PO DAILY, (Reported) Metoprolol Tartrate 100 Mg Tablet, 150 MG PO BID, (Reported) take 1 1/2 of 100mg tab Montelukast Sodium 10 Mg Tablet, 10 MG PO DAILY, (Reported) Multivitamin 1 Each Tablet, 1 EACH PO DAILY, (Reported) Omeprazole 20 Mg Capsule.dr, 20 MG PO DAILY, (Reported) Potassium Chloride 20 Meq Tab.er.prt, 40 MEQ PO DAILY, (Reported) TAKES 2 (20MEQ) TABLETS Thyroid,Pork 120 Mg Tablet, 120 MG PO DAILY, (Reported) Past Uutzqzi-Pgkzjx-Nrfxph Hx Patient Social History Alcohol Use: Occasionally Uses Number of Drinks Today: AA Alcohol Beverage of Choice: Beer Smoking Status: Current Everyday Smoker Type Used: Cigarettes 2nd Hand Smoke Exposure: Yes Recent Infectious Disease Expo: No Recent Hopitalizations: No Alcohol Use?: Yes Immunizations Up To Date Tetanus Booster (TDap): Unknown PED Vaccines UTD: No Date of Influenza Vaccine: Feb 29, 2020 Seasonal Allergies Seasonal Allergies: No Past Medical History Surgeries: Yes (thyroidectomy, INTRAMEDULLARY NAILING R DISTAL TIBIA WITH C- ARM) Defibrillator, Orthopedic Respiratory: Yes Asthma, Sleep Apnea Currently Using CPAP: Yes Currently Using BIPAP: No Cardiac: Yes (HX R ABLATION) Atrial Fibrillation, Hypertension Neurological: No Reproductive Disorders: No Sexually Transmitted Disease: No HIV/AIDS: No Genitourinary: No Gastrointestinal: Yes Gastroesophageal Reflux Musculoskeletal: No Endocrine: Yes Hypothyroidsim HEENT: No Loss of Vision: Denies Hearing Impairment: Denies Cancer: No Psychosocial: No Integumentary: No Blood Disorders: No Adverse Reaction/Blood Tranf: No Family Medical History CAD Under 55 Years Old Review of Systems Time Seen by Provider: 05:32 Sepsis Event Evaluation Height, Weight, BMI Height: 5'10.00" Weight: 252lbs. 0.0oz. 114.764273hw; 34.76 BMI Method:Stated Exam Exam Vital Signs Date Time Temp Pulse Resp B/P (MAP) Pulse Ox O2 Delivery O2 Flow Rate FiO2 10/29/20 04:30 113 22 111/74 (86) 94 Room Air 10/29/20 04:15 98 48 94/73 (79) 92 Room Air 10/29/20 04:00 98 95/66 (75) 93 Room Air 10/29/20 03:45 107 23 107/73 (83) 93 Room Air 10/29/20 03:30 101 35 106/72 (85) 93 Room Air 10/29/20 03:30 93 Room Air 10/29/20 03:23 114 10/29/20 03:20 36.6 114 16 103/69 (80) 93 Room Air 10/29/20 03:07 36.6 117 18 109/71 95 Room Air 10/29/20 01:38 94 Nasal Cannula 2.00 10/29/20 01:28 36.5 160 16 136/94 (108) 94 Room Air I & O 10/29/20 07:00 Intake Total 1000 ml Balance 1000 ml Height & Weight Height: 5'10.00" Weight: 252lbs. 0.0oz. 114.509651yl; 34.76 BMI Method:Stated General Appearance: No Apparent Distress, WD/WN HEENT: PERRL/EOMI, Pharynx Normal, Moist Mucous Membranes Neck: Normal Inspection, Non Tender Respiratory: Lungs Clear, Normal Breath Sounds, No Accessory Muscle Use, No Respiratory Distress Cardiovascular: No Gallop, No Murmur, Normal Peripheral Pulses, Irregularly Irregular, Tachycardia Capillary Refill: Less Than 3 Seconds Extremity: Normal Capillary Refill, Normal Inspection Neurologic/Psychiatric: Alert, Oriented x3 Skin: Normal Color, Warm/Dry Results Lab Laboratory Tests 10/29/20 01:30 Assessment/Plan Assessment/Plan Afib RVR -Cardizem -Cardiology following hx of cardiomyopathy ADELIA -Pt has home CPAP DM -SSI -monitor MARIBELL PERAZA DO Oct 29, 2020 05:32
[2020-10-29] MEDS ORDERED: RT-ALBUTEROL/IPRATROPIUM 3 ML (DUONEB) VIAL INH PRN (06:30)
[2020-10-29] MEDS: inSUlin ASPART (NovoLOG) 1 UNIT/0.01 ML (CHARGE PER UNIT) SC SCH ×4 (06:43→21:00)
--- NOTE | 2020-10-29 07:55 | Diagnostic Imaging Report ---
INDICATION: Atrial fibrillation. TECHNIQUE: Single view chest 4:22 AM. CORRELATION STUDY: 03/14/2019 FINDINGS: Left-sided AICD remains in place. Heart size borderline. Vasculature overall within normal limits. Lung pitts are hyperinflated. No consolidating infiltrate. IMPRESSION: 1. Hyperinflated lung pitts. No acute infiltrate. Dictated by: Dictated on workstation # [id number]
[2020-10-29] MEDS ORDERED: AMIODARONE INJECTION 150 MG in D5W 100 ML IVPB 100 ML IV NR (08:00)
[2020-10-29] MEDS: meTOprolol TARTRATE 50 MG (LOPRESSOR) TAB PO SCH ×2 (08:27→20:31)
[2020-10-29] MEDS: THYROID (ARMOUR) 60 MG TABLET PO SCH (08:28)
[2020-10-29] MEDS: PANTOPRAZOLE 40 MG (PROTONIX) VIAL IV SCH (08:28)
[2020-10-29] MEDS: AMIODARONE 200 MG (CORDARONE) TAB PO SCH ×2 (08:28→16:14)
--- NOTE | 2020-10-29 08:50 | Consultation-Cardiology ---
HPI-Cardiology Cardiology Consultation Date of Consultation 10/29/20 Date of Admission Time Seen by Provider: 08:45 Indication: Atrial fibrillation HPI 50 years old gentleman with history of paroxysmal atrial fibrillation, admitted with palpitation and rapid heart rate, patient had history of ablation done in October [address] Kirby, had history of ICD implantation, he is on amiodarone 100 mg twice a day. Follows with Dr. Coni Blair as an outpatient. On my evaluation he was feeling better, heart rate is better controlled, still irregular. Home Medications & Allergies Allergies: Coded Allergies: Penicillins (Verified Allergy, Unknown, "LONG AGO DON'T REMEMBER REACTION", 09/17/06) Home Medication List Reviewed: Yes UQA-Pstmdi-Npkbnb Hx Patient Social History Marital Status: Recreational Drug Use: No Smoking Status: Current Everyday Smoker Type Used: Cigarettes 2nd Hand Smoke Exposure: Yes Recent Hopitalizations: No Alcohol Use?: Yes Immunizations Up To Date Tetanus Booster (TDap): Unknown Date of Influenza Vaccine: Feb 29, 2020 Past Medical History Discussed below Family Medical History Significant Family History: CAD Under 55 Years Old Review of Systems-General Review of Systems Constitutional: see HPI; No chills, No diaphoresis EENTM: see HPI, no symptoms reported Respiratory: see HPI; No cough; dyspnea on exertion; No hemoptysis, No orthopnea, No phlegm, No short of breath, No stridor, No wheezing, No other Cardiovascular: see HPI; No chest pain, No edema, No Hx of Intervention; palpitations; No syncope, No vascular heart diseas, No other Gastrointestinal: no symptoms reported, see HPI Genitourinary: no symptoms reported, see HPI Musculoskeletal: see HPI; No back pain, No joint pain Skin: see HPI; No pruritus, No rash Psychiatric/Neurological: See HPI; Denies Headache, Denies Numbness All Other Systems Reviewed Negative Unless Noted: Yes Reviewed Test Results Reviewed Test Results Lab Laboratory Tests Test 10/29/20 01:30 10/29/20 04:05 Range/Units White Blood Count 7.7 4.3-11.0 10^3/uL Red Blood Count 6.80 H 4.30-5.52 10^6/uL Hemoglobin 20.1 H 13.3-17.7 g/dL Hematocrit 61 H 40-54 % Mean Corpuscular Volume 89 80-99 fL Mean Corpuscular Hemoglobin 30 25-34 pg Mean Corpuscular Hemoglobin Concent 33 32-36 g/dL Red Cell Distribution Width 13.2 10.0-14.5 % Platelet Count 196 130-400 10^3/uL Mean Platelet Volume 11.4 9.0-12.2 fL Immature Granulocyte % (Auto) 0 % Neutrophils (%) (Auto) 51 42-75 % Lymphocytes (%) (Auto) 34 12-44 % Monocytes (%) (Auto) 11 0-12 % Eosinophils (%) (Auto) 4 0-10 % Basophils (%) (Auto) 1 0-10 % Neutrophils # (Auto) 3.9 1.8-7.8 10^3/uL Lymphocytes # (Auto) 2.6 1.0-4.0 10^3/uL Monocytes # (Auto) 0.8 0.0-1.0 10^3/uL Eosinophils # (Auto) 0.3 0.0-0.3 10^3/uL Basophils # (Auto) 0.0 0.0-0.1 10^3/uL Immature Granulocyte # (Auto) 0.0 0.0-0.1 10^3/uL Prothrombin Time 12.5 12.2-14.7 SEC INR Comment 0.9 0.8-1.4 Activated Partial Thromboplast Time 29 24-35 SEC Sodium Level 139 135-145 MMOL/L Potassium Level 3.7 3.6-5.0 MMOL/L Chloride Level 101 98-107 MMOL/L Carbon Dioxide Level 21 21-32 MMOL/L Anion Gap 17 H 5-14 MMOL/L Blood Urea Nitrogen 8 7-18 MG/DL Creatinine 0.98 0.60-1.30 MG/DL Estimat Glomerular Filtration Rate > 60 BUN/Creatinine Ratio 8 Glucose Level 152 H 70-105 MG/DL Calcium Level 9.2 8.5-10.1 MG/DL Corrected Calcium 9.0 8.5-10.1 MG/DL Magnesium Level 2.1 1.6-2.4 MG/DL Total Bilirubin 0.7 0.1-1.0 MG/DL Aspartate Amino Transf (AST/SGOT) 36 H 5-34 U/L Alanine Aminotransferase (ALT/SGPT) 59 H 0-55 U/L Alkaline Phosphatase 83 40-136 U/L Myoglobin 30.4 10.0-92.0 NG/ML Troponin I < 0.028 < 0.028 <0.028 NG/ML Total Protein 7.3 6.4-8.2 GM/DL Albumin 4.3 3.2-4.5 GM/DL Thyroid Stimulating Hormone (TSH) 0.49 0.35-4.94 UIU/ML Physical Exam Physical Exam Vital Signs Vital Signs - First Documented 10/29/20 10/29/20 01:28 01:38 Temp 36.5 Pulse 160 Resp 16 B/P (MAP) 136/94 (108) Pulse Ox 94 O2 Delivery Room Air O2 Flow Rate 2.00 Capillary Refill : Less Than 3 Seconds Height, Weight, BMI Height: 5'10.00" Weight: 252lbs. 0.0oz. 114.781319ja; 34.76 BMI Method:Stated General Appearance: No Apparent Distress, WD/WN HEENT: PERRL/EOMI, Pharynx Normal, Moist Mucous Membranes Neck: Normal Inspection, Non Tender Respiratory: Lungs Clear, Normal Breath Sounds, No Accessory Muscle Use, No Respiratory Distress Cardiovascular: No Gallop, No Murmur, Normal Peripheral Pulses, Irregularly Irregular Extremity: Normal Capillary Refill, Normal Inspection Neurologic/Psychiatric: Alert, Oriented x3 Skin: Normal Color, Warm/Dry A/P-Cardiology Admission Diagnosis Paroxysmal atrial fibrillation Congestive heart failure, chronic compensated left ventricular systolic dysfunction, nonischemic cardiomyopathy Palpitation Hypertension Assessment/Plan Paroxysmal atrial fibrillation, history of ablation done in October [address] Kirby. Has been maintained on amiodarone 100 mg twice daily. I will increase the dose to 200 mg twice daily and received a bolus of amiodarone IV, planning to do cardioversion tomorrow if he did not convert on his own. Patient did not skip his oral anticoagulation, has been compliant with his medication. Congestive heart failure, nonischemic cardiomyopathy, last echo was done in 2018 showing normal ejection fraction, will repeat 2D echocardiogram History of AICD implant for primary prevention. Continue to monitor Hypertension, monitor blood pressure History of cardiac catheterization 2016 showing nonobstructive disease. Palpitation, reporting improvement GI ALLEN MD Oct 29, 2020 08:50
--- NOTE | 2020-10-29 08:57 | History & Physical ---
History of Present Illness History of Present Illness Date of Admission Oct 29, 2020 at 02:50 I consulted on this patient on 10/29/20 08:57 Attending Physician Sarah Newberry MD Admitting Physician Sarah Newberry MD Consult Allergies and Home Medications Allergies Coded Allergies: Penicillins (Verified Allergy, Unknown, "LONG AGO DON'T REMEMBER REACTION", 09/17/06) Home Medications Albuterol Sulfate 18 Gm Hfa.aer.ad, 2 PUFF IH QID PRN for WHEEZING, (Reported) Amiodarone HCl 100 Mg Tablet, 100 MG PO BID, (Reported) Apixaban 5 Mg Tablet, 5 MG PO BID, (Reported) Clindamycin HCl 300 Mg Capsule, 300 MG PO TID Prescribed by: BRAD ANDUJAR on 04/10/19 1650 Fluticasone/Vilanterol 1 Each Blst.w.dev, 1 EACH IH DAILY, (Reported) Furosemide 40 Mg Tablet, 40 MG PO DAILY, (Reported) Losartan Potassium 50 Mg Tablet, 50 MG PO DAILY, (Reported) Metoprolol Tartrate 100 Mg Tablet, 150 MG PO BID, (Reported) take 1 1/2 of 100mg tab Montelukast Sodium 10 Mg Tablet, 10 MG PO DAILY, (Reported) Multivitamin 1 Each Tablet, 1 EACH PO DAILY, (Reported) Omeprazole 20 Mg Capsule.dr, 20 MG PO DAILY, (Reported) Potassium Chloride 20 Meq Tab.er.prt, 40 MEQ PO DAILY, (Reported) TAKES 2 (20MEQ) TABLETS Thyroid,Pork 120 Mg Tablet, 120 MG PO DAILY, (Reported) Past Qspfhao-Cozgfn-Jsheuo Hx Patient Social History Marrital Status: Alcohol Use: Occasionally Uses Alcohol Beverage of Choice: Beer Recreational Drug Use: No Smoking Status: Current Everyday Smoker Type Used: Cigarettes 2nd Hand Smoke Exposure: Yes Recent Foreign Travel: No Contact w/other who traveled: No Recent Hopitalizations: No Recent Infectious Disease Expo: No Immunizations Up To Date Tetanus Booster (TDap): Unknown Pediatric: No Date of Influenza Vaccine: Feb 29, 2020 Seasonal Allergies Seasonal Allergies: No Past Medical History Surgeries: Defibrillator, Orthopedic Currently Using CPAP: Yes Currently Using BIPAP: No Cardiac: Atrial Fibrillation, Hypertension Reproductive: No Sexually Transmitted Disease: No HIV/AIDS: No Gastrointestinal: Gastroesophageal Reflux Endocrine: Hypothyroidsim Loss of Vision: Denies Hearing Impairment: Denies History of Blood Disorders: No Adverse Reaction to Blood Meyer: No Family History CAD Under 55 Years Old Physical Exam Vital Signs Vital Signs - First Documented 10/29/20 10/29/20 01:28 01:38 Temp 36.5 Pulse 160 Resp 16 B/P (MAP) 136/94 (108) Pulse Ox 94 O2 Delivery Room Air O2 Flow Rate 2.00 Capillary Refill : Less Than 3 Seconds Height, Weight, BMI Height: 5'10.00" Weight: 252lbs. 0.0oz. 114.056302nj; 34.76 BMI Method:Stated Assessment/Plan Assessment and Plan PAROXYSMAL ATRIAL FIBRILLATION HYPERTENSION DIABETES MELLITUS ELEVATED HEMOGLOBIN ELEVATED LIVER ENZYMES Admission Diagnosis PAROXYSMAL ATRIAL FIBRILLATION HYPERTENSION DIABETES MELLITUS ELEVATED HEMOGLOBIN ELEVATED LIVER ENZYMES Admission Status: Observation Diagnosis/Problems Diagnosis/Problems (1) Paroxysmal atrial fibrillation Status: Chronic (2) Sleep apnea with use of continuous positive airway pressure (CPAP) Status: Chronic (3) Diabetes mellitus (4) Essential (primary) hypertension Status: Chronic (5) Cardiomyopathy Status: Chronic (6) Adult-onset obesity (7) Smoking SARAH NEWBERRY MD Oct 29, 2020 08:57
[2020-10-29] MEDS ORDERED: AMIODARONE 200 MG (CORDARONE) TAB PO SCH (09:00)
[2020-10-29] MEDS ORDERED: APIXABAN 5 MG (ELIQUIS) TABLET PO SCH (09:00)
[2020-10-29] MEDS: AMIODARONE INJECTION 450 MG in D5W IV SOLUTION (EXCEL) 250 ML IV SCH ×2 (09:02→16:14)
--- NOTE | 2020-10-29 10:16 | Diagnostic Imaging Report ---
PROCEDURE: US Venous Lower Ext Shashank. TECHNIQUE: Multiple real-time grayscale images were obtained over the lower extremities in various projections, bilaterally. Additional duplex Doppler and color Doppler images were also obtained. INDICATION: Lower extremity swelling and edema. Evaluate for deep vein thrombus. COMPARISON: None. FINDINGS: The bilateral common femoral vein, femoral vein, deep femoral vein, and popliteal vein are normal in appearance. These vessels show normal compressibility, color flow and doppler augmentation. The visualized deep calf veins demonstrate no distinct intraluminal thrombus. IMPRESSION: 1. No sonographic evidence of deep venous thrombosis in the bilateral lower extremities. Dictated by: Dictated on workstation # [id number]
[2020-10-29] MEDS: dilTIAZem DRIP PRE-MIX 125 ML IV SCH ×2 (10:51→21:22)
[2020-10-29] MEDS ORDERED: FLUT1DIS26 IH (11:01)
[2020-10-29] MEDS ORDERED: SACU1TAB2 PO (11:01)
[2020-10-29] MEDS ORDERED: MULT-1136 PO (11:01)
[2020-10-29] MEDS ORDERED: GLIP5TAB13 PO (11:01)
[2020-10-29] MEDS ORDERED: SAXA5TAB PO (11:01)
[2020-10-29] MEDS ORDERED: ENOXAPARIN 100 MG/1 ML (LOVENOX) SYR SC SCH (13:45)
[2020-10-29 14:08] LABS: HEMOGLOBIN 17.5 g/dL (13.3-17.7)
[2020-10-29] MEDS: ENOXAPARIN 300 MG/3 ML (LOVENOX) MULTI-DOSE VIAL SQ SCH (20:31)
[2020-10-30 03:06] LABS: MEAN PLATELET VOLUME 11.7 fL (9.0-12.2); WHITE BLOOD COUNT 6.7 10^3/uL (4.3-11.0)
[2020-10-30 03:19] LABS: CHLORIDE 103 MMOL/L (98-107); POTASSIUM 3.9 MMOL/L (3.6-5.0); SODIUM 138 MMOL/L (135-145)
[2020-10-30 03:20] LABS: ALBUMIN 3.5 GM/DL (3.2-4.5)
[2020-10-30 03:21] LABS: CALCIUM 8.3 MG/DL (8.5-10.1); TRIGLYCERIDES 56 MG/DL (<150); VLDL CHOLESTEROL 11 MG/DL (5-40)
[2020-10-30 03:22] LABS: GLUCOSE 134 MG/DL (70-105); TOTAL PROTEIN 5.6 GM/DL (6.4-8.2)
[2020-10-30 03:23] LABS: CARBON DIOXIDE 23 MMOL/L (21-32)
[2020-10-30 03:25] LABS: PHOSPHORUS 4.6 MG/DL (2.3-4.7)
[2020-10-30 03:26] LABS: ALKALINE PHOSPHATASE 55 U/L (40-136); CREATININE SERUM 0.93 MG/DL (0.60-1.30); GFR ESTIMATED > 60
[2020-10-30 03:27] LABS: BUN/CREATININE RATIO 12; CHOLESTEROL 142 MG/DL (< 200)
[2020-10-30 03:28] LABS: HDL CHOLESTEROL 47 MG/DL (40-60)
[2020-10-30 03:29] LABS: ALANINE AMINOTRANSFERASE 41 U/L (0-55); MAGNESIUM 1.9 MG/DL (1.6-2.4)
--- NOTE | 2020-10-30 03:55 | Pulmonary Progress Note ---
Subjective Time Seen by a Provider: 03:54 Subjective/Events-last exam Pt converted to sinus Sepsis Event Evaluation Height, Weight, BMI Height: 5'10.00" Weight: 252lbs. 0.0oz. 114.581237cv; 34.76 BMI Method:Stated Exam Exam Vital Signs Date Time Temp Pulse Resp B/P (MAP) Pulse Ox O2 Delivery O2 Flow Rate FiO2 10/30/20 03:00 66 144/95 (111) 93 Room Air 10/30/20 02:00 68 135/98 (110) 96 Room Air 10/30/20 01:00 64 19 103/73 (83) 92 Room Air 10/30/20 01:00 64 10/30/20 00:00 68 123/82 (96) 92 Room Air 10/29/20 23:00 70 20 141/100 (114) 94 Room Air 10/29/20 22:00 68 8 139/82 (101) 95 Room Air 10/29/20 21:00 73 19 133/86 (102) 94 Room Air 10/29/20 20:14 36.2 10/29/20 20:00 85 20 132/93 (106) 94 Room Air 10/29/20 19:16 94 Room Air 10/29/20 19:12 76 10/29/20 19:00 78 20 147/86 (106) 94 Room Air 10/29/20 18:00 91 142/89 (106) 94 Room Air 10/29/20 17:00 79 131/89 (103) 93 Room Air 10/29/20 16:00 77 129/85 (100) 94 Room Air 10/29/20 15:53 36.6 10/29/20 15:39 74 115/63 (80) 89 Room Air 10/29/20 14:00 78 36 120/86 (97) 93 Room Air 10/29/20 13:00 81 24 126/74 (91) 94 Room Air 10/29/20 12:55 90 10/29/20 12:00 88 17 133/91 (105) 95 Room Air 10/29/20 11:40 36.7 10/29/20 11:00 78 21 124/75 (91) 95 Room Air 10/29/20 10:00 36 116/87 (97) 94 Room Air 10/29/20 09:00 99 101/81 (88) 93 Room Air 10/29/20 08:00 95 Room Air 10/29/20 07:45 36.8 10/29/20 07:00 31 92/65 (74) 93 Room Air 10/29/20 06:42 76 10/29/20 06:27 94 Room Air 10/29/20 06:00 81 104/74 (84) 91 Room Air 10/29/20 05:45 87 109/78 (83) 95 Room Air 10/29/20 05:30 80 104/65 (74) 94 Room Air 10/29/20 05:15 93 103/70 (77) 93 Room Air 10/29/20 05:00 88 20 109/70 (78) 93 Room Air 10/29/20 04:45 110 97/68 (81) 94 Room Air 10/29/20 04:30 113 22 111/74 (86) 94 Room Air 10/29/20 04:15 98 48 94/73 (79) 92 Room Air 10/29/20 04:00 98 95/66 (75) 93 Room Air I & O 10/30/20 07:00 Intake Total 2150 ml Output Total 1650 ml Balance 500 ml Height & Weight Height: 5'10.00" Weight: 252lbs. 0.0oz. 114.939771uy; 34.76 BMI Method:Stated General Appearance: No Apparent Distress, WD/WN HEENT: PERRL/EOMI, Pharynx Normal, Moist Mucous Membranes Neck: Normal Inspection, Non Tender Respiratory: Lungs Clear, Normal Breath Sounds, No Accessory Muscle Use, No Respiratory Distress Cardiovascular: No Gallop, No Murmur, Normal Peripheral Pulses, Irregularly Irregular Capillary Refill: Less Than 3 Seconds Extremity: Normal Capillary Refill, Normal Inspection Neurologic/Psychiatric: Alert, Oriented x3 Skin: Normal Color, Warm/Dry Results Lab Laboratory Tests 10/29/20 01:30 10/29/20 13:55 10/30/20 02:40 Assessment/Plan Assessment/Plan Afib RVR -Cardizem -Cardiology following hx of cardiomyopathy ADELIA -Pt has home CPAP DM -SSI -monitor MARIBELL PERAZA DO Oct 30, 2020 03:55
[2020-10-30] MEDS: inSUlin ASPART (NovoLOG) 1 UNIT/0.01 ML (CHARGE PER UNIT) SC SCH (05:55)
[2020-10-30] MEDS: THYROID (ARMOUR) 60 MG TABLET PO SCH (06:03)
[2020-10-30] MEDS: meTOprolol TARTRATE 50 MG (LOPRESSOR) TAB PO SCH (07:43)
[2020-10-30] MEDS: PANTOPRAZOLE 40 MG (PROTONIX) VIAL IV SCH (07:44)
[2020-10-30] MEDS: AMIODARONE 200 MG (CORDARONE) TAB PO SCH (07:44)
[2020-10-30] MEDS: LACTATED RINGERS 1,000 ML IV SCH (07:44)
[2020-10-30] MEDS: ENOXAPARIN 300 MG/3 ML (LOVENOX) MULTI-DOSE VIAL SQ SCH (07:48)
--- NOTE | 2020-10-30 08:00 | Diagnostic Imaging Report ---
INDICATION: Atrial fibrillation. Time of exam: 3:17 AM Correlation is made with prior examination one day earlier. Cardiac defibrillator remains in place. The lungs are clear. There is no infiltrate or failure. No effusion or pneumothorax is detected. IMPRESSION: No acute cardiopulmonary process is detected. Dictated by: Dictated on workstation # [id number]
[2020-10-30] MEDS ORDERED: APIXABAN 5 MG (ELIQUIS) TABLET PO SCH (09:00)
[2020-10-30] MEDS ORDERED: METO100T12 PO (09:05)
[2020-10-30] MEDS ORDERED: AMIO200T6 PO (09:05)
--- NOTE | 2020-10-30 09:09 | Discharge Inst-Simple/Standard ---
Discharge Inst-Standard Reconcile Patient Problems Problems Reviewed?: Yes Discharge Medications New, Converted or Re-Newed RX: Transmitted to Pharmacy Patient Instructions/Follow Up Plan of Care/Instructions/FU: 1 [facility] 2 WKS WITH CARDIOLOGY Activity as Tolerated: Yes Discharge Diet: ADA Diet Return to The Hospital For: ANY CONCERN FOR LIFE THREATENING ILLNESS OR INJURY OR RECURRENT CHEST PAIN OR ABNORMAL HEART RATE SARAH SUBRAMANIAN MD Oct 30, 2020 09:09
--- NOTE | 2020-10-30 09:11 | Discharge Summary ---
Diagnosis/Chief Complaint Date of Admission Oct 29, 2020 at 02:50 Date of Discharge Discharge Date: Oct 30, 2020 Discharge Time: 1030 Discharge Summary Discharge Physical Examination Allergies: Coded Allergies: Penicillins (Verified Allergy, Unknown, "LONG AGO DON'T REMEMBER REACTION", 09/17/06) Vitals & I&Os Vital Signs Date Time Temp Pulse Resp B/P (MAP) Pulse Ox O2 Delivery O2 Flow Rate FiO2 10/30/20 08:11 36.7 10/30/20 07:27 93 Room Air 10/30/20 07:01 65 10/30/20 06:00 154/89 (110) 10/30/20 05:00 34 10/29/20 01:38 2.00 Hospital Course Pending Labs Laboratory Tests 10/30/20 02:40: White Blood Count 6.7, Red Blood Count 5.72, Hemoglobin 17.0, Hematocrit 52, Mean Corpuscular Volume 90, Mean Corpuscular Hemoglobin 30, Mean Corpuscular Hemoglobin Concent 33, Red Cell Distribution Width 13.2, Platelet Count 161, Mean Platelet Volume 11.7, Sodium Level 138, Potassium Level 3.9, Chloride Level 103, Carbon Dioxide Level 23, Anion Gap 12, Blood Urea Nitrogen 11, Creatinine 0.93, Estimat Glomerular Filtration Rate > 60, BUN/Creatinine Ratio 12, Glucose Level 134, Calcium Level 8.3, Corrected Calcium 8.7, Phosphorus Level 4.6, Magnesium Level 1.9, Total Bilirubin 1.0, Aspartate Amino Transf (AST/SGOT) 22, Alanine Aminotransferase (ALT/SGPT) 41, Alkaline Phosphatase 55, Total Protein 5.6, Albumin 3.5, Triglycerides Level 56, Cholesterol Level 142, LDL Cholesterol Direct 95, VLDL Cholesterol 11, HDL Cholesterol 47 Discharge Instructions to patient/family Please see electronic discharge instructions given to patient. Discharge Medications Reviewed and agree with Discharge Medication list on patient's Discharge Instruction sheet SARAH SUBRAMANIAN MD Oct 30, 2020 09:11
--- NOTE | 2020-10-30 12:02 | Cardiology Progress Note ---
Subjective Date Seen by Provider: Oct 30, 2020 Time Seen by Provider: 08:00 Subjective/Events-last exam Patient was seen and evaluated, converted overnight to sinus rhythm, feeling better Review of Systems General: No Chills, No Night Sweats, No Fatigue, No Malaise, No Appetite, No Other HEENT: No Head Aches, No Visual Changes, No Eye Pain, No Ear Pain, No Dysphasia, No Sinus Congestion, No Post Nasal Drip, No Sore Throat, No Other Pulmonary: No Dyspnea, No Cough, No Pleuritic Chest Pain, No Other Cardiovascular: No: Chest Pain, Palpitations, Orthopnea, Paroxysmal Noc. Dyspnea, Edema, Lt Headedness, Other Objective-Cardiology Exam Last Set of Vital Signs Vital Signs 10/29/20 10/30/20 10/30/20 10/30/20 10/30/20 10/30/20 01:38 05:00 06:00 07:01 07:27 08:11 Temp 36.7 Pulse 65 Resp 34 B/P (MAP) 154/89 (110) Pulse Ox 93 O2 Delivery Room Air O2 Flow Rate 2.00 Capillary Refill : Less Than 3 Seconds I&O Intake and Output 10/30/20 00:00 Intake Total 3270 ml Output Total 2300 ml Balance 970 ml Intake Oral 2270 ml IV Total 1000 ml Output Urine Total 2300 ml # Voids 1 # Bowel Movements 1 Daily Weight Change No General: Alert, Oriented X3, Cooperative HEENT: Atraumatic, PERRLA Neck: Supple, No JVD, No Thyromegaly Lungs: Clear to Auscultation, Normal Air Movement Heart: Regular Rate, Normal S1, Normal S2, No Murmurs Abdomen: Normal Bowel Sounds, Soft, No Tenderness, No Hepatosplenomegaly, No Masses Extremities: No Clubbing, No Cyanosis, No Edema, Normal Pulses, No Tenderness/Swelling Skin: No Rashes, No Breakdown, No Significant Lesion Neuro: Normal Gait, Normal Speech, Strength at 5/5 X4 Ext, Normal Tone, Sensation Intact Psych/Mental Status: Mental Status NL, Mood NL Results Lab Laboratory Tests 10/29/20 13:55 10/30/20 02:40 A/P-Cardiology Admission Diagnosis Paroxysmal atrial fibrillation Congestive heart failure, chronic compensated left ventricular systolic dysfunction, nonischemic cardiomyopathy Palpitation Hypertension Assessment/Plan Paroxysmal atrial fibrillation, history of ablation done in October [address] Kirby. Converted to sinus rhythm on amiodarone drip, I will start him on amiodarone loading dose and continuation dose and arrange for follow-up with Dr. Blair as an outpatient, we had a long discussion with the patient about the possibility of redo ablation and referral to a tertiary care center in the future Congestive heart failure, nonischemic cardiomyopathy, chronic compensated left ventricular systolic dysfunction nonischemic cardiomyopathy. Continue to monito r History of AICD implant for primary prevention. Continue to monitor Hypertension, monitor blood pressure History of cardiac catheterization 2016 showing nonobstructive disease. Palpitation, reporting improvement GI ALLEN MD Oct 30, 2020 12:02
[2020-10-31] MEDS ORDERED: APIXABAN 5 MG (ELIQUIS) TABLET PO SCH (21:00)
== END 2020-10-30 09:24 | disposition home or self-care (01) ==
LOC: EDUNIT# 01:23 → ER 01:25 → ICU 02:50 → UNDOADMOB 02:50 → ICU 03:20 → UNDODISOB 10-30 09:56
PROVIDERS: ADMIT Family Medicine; ATTEND Family Medicine
DX: I48.0 Paroxysmal atrial fibrillation (principal); I11.0 Hypertensive heart disease with heart failure; I50.9 Heart failure, unspecified; E11.9 Type 2 diabetes mellitus without complications; G47.33 Obstructive sleep apnea (adult) (pediatric); J45.909 Unspecified asthma, uncomplicated; K21.9 Gastro-esophageal reflux disease without esophagitis; E03.9 Hypothyroidism, unspecified; I48.92 Unspecified atrial flutter; F17.210 Nicotine dependence, cigarettes, uncomplicated; Z79.51 Long term (current) use of inhaled steroids; Z79.899 Other long term (current) drug therapy; Z88.0 Allergy status to penicillin
CPT/HCPCS: 36415; 71045; 80053; 80061; 82962; 83735; 83874; 84100; 84443; 84484; 85014; 85018; 85025; 85027; 85610; 85730; 87081; 93005; 93306; 93970; G0378

== ENCOUNTER 2020-12-02 09:37 | Day surgery (SDC) | payer OTHER ==
[2020-12-02] VITALS (13 sets, daily range): BP systolic 89–137; BP diastolic 59–94
[~2020-12-02 09:37] MED LIST changes: +FLUT1DIS26 IH; +GLIP5TAB13 PO; +MULT-1136 PO; +SACU1TAB2 PO; +SAXA5TAB PO
[2020-12-02] MEDS ORDERED: NS IV 1000 ML 1,000 ML IV STA (10:02)
[2020-12-02] MEDS ORDERED: fentaNYL INJ 100 MCG/2 ML AMP IVP ONE (10:15)
[2020-12-02] MEDS ORDERED: LIDOCAINE 1% INJ 20 ML 20 ML VIAL INJ ONE (10:15)
[2020-12-02] MEDS ORDERED: MIDAZOLAM 2 MG/2 ML (VERSED) VIAL IVP ONE (10:15)
[2020-12-02 10:21] LABS: ABSOLUTE RETIC # 105 10e9/uL (24-90); BASOPHILS % (AUTO) 1 % (0-10); EOSINOPHILS # (AUTO) 0.2 10^3/uL (0.0-0.3); EOSINOPHILS % (AUTO) 3 % (0-10); HEMATOCRIT 56 % (40-54); LYMPHOCYTES # (AUTO) 1.6 10^3/uL (1.0-4.0); LYMPHOCYTES % (AUTO) 26 % (12-44); MEAN CORPUSCULAR HEMOGLOBIN 30 pg (25-34); MEAN CORPUSCULAR HGB CONC 34 g/dL (32-36); MEAN CORPUSCULAR VOLUME 88 fL (80-99); MEAN PLATELET VOLUME 11.1 fL (9.0-12.2); MONOCYTES # (AUTO) 0.6 10^3/uL (0.0-1.0); MONOCYTES % (AUTO) 10 % (0-12); NEUTROPHILS # (AUTO) 3.7 10^3/uL (1.8-7.8); NEUTROPHILS % (AUTO) 60 % (42-75); PLATELET COUNT 159 10^3/uL (130-400); RETICULOCYTE % 1.64 % (0.50-2.40); WHITE BLOOD COUNT 6.1 10^3/uL (4.3-11.0)
[2020-12-02 10:41] LABS: PROTHROMBIN TIME PATIENT 13.2 SEC (12.2-14.7)
[2020-12-02 11:03] LABS: EOSINOPHILS % (MANUAL) 2 %; LYMPHOCYTES % (MANUAL) 34 %; MONOCYTES % (MANUAL) 8 %; NEUTROPHILS % (MANUAL) 55 %; REACTIVE LYMPHOCYTES 2 %
[2020-12-02 11:04] LABS: PLATELET CLUMPS SLIGHT
[2020-12-02] MEDS ORDERED: HYDROcodone/APAP 5 MG/325 MG (LORTAB) TAB PO PRN (12:30)
--- NOTE | 2020-12-02 13:04 | Diagnostic Imaging Report ---
INDICATION: Elevated hemoglobin. Patient brought to the CT suite placed on table in the prone position. Axial imaging through the pelvis was performed to evaluate appropriate entry site. Low back was then prepped and draped in the usual sterile fashion. Procedure was performed utilizing conscious sedation, with radiology nursing and constant patient monitoring. Patient was given a total of 100 mcg of fentanyl intravenously and 1 mg of Versed intravenously. Total procedure time was 6 minutes.. Small amount of 1% lidocaine was utilized for local anesthesia. Bone marrow biopsy needle was advanced and placed with its tip along the posterior cortex of the right iliac bone. The needle was passed through the cortex utilizing the bone marrow drill. 2 bone marrow aspirates were then obtained. The drill was then reattached and a bone marrow core biopsy was obtained. Needle was withdrawn and hemostasis was obtained using manual compression. Patient tolerated procedure well and left the department in stable condition. IMPRESSION: Successful CT-guided bone marrow aspiration and biopsy, utilizing conscious sedation. Dictated by: Dictated on workstation # [id number]
--- NOTE | 2020-12-02 15:41 | Pre-Op Note & Conscious Sedat ---
Pre-Operative Progress Note H&P Reviewed The H&P was reviewed, patient examined and no changes noted. Date H&P Reviewed: December 02, 2020 Time H&P Reviewed: 10:00 Pre-Op Diagnosis: elevated hemoglobin Conscious Sedation Pre-Proced Time 10:00 ASA Score 2 For ASA 3 and 4: Consider anesthesia and medical clearance. Also, for patients with a history of failed moderate sedation consider anesthesia. Airway Lungs Heart ASA score ASA 1: a normal healthy patient ASA 2: a patient with a mild systemic disease (mid diabetes, controlled hypertension, obesity ASA 3: a patient with a severe systemic disease that limits activity (angina, COPD, prior Myocardial infarction) ASA 4: a patient with an incapacitating disease that is a constant threat to life (CHF, renal failure) ASA 5: a moribund patient not expected to survive 24 hrs. (ruptured aneurysm) ASA 6: a declared brain- patient whose organs are being harvested. For emergent operations, add the letter E after the classification Mallampati Classification Grade 2 Sedation Plan Analgesia, Amnesia, Plan communicated to team members, Discussed options with patient/fam, Discussed risks with patient/fam The patient is an appropriate candidate to undergo the planned procedure, sedation, and anesthesia. The patient immediately re-assessed prior to indication. YARA EASTMAN MD December 02, 2020 15:40
== END 2020-12-02 14:30 | disposition home or self-care (01) ==
LOC: RAD 09:37 → SDC 12:20 → RAD 14:30
PROVIDERS: ATTEND Family Medicine
DX: D58.2 Other hemoglobinopathies (principal); I48.20 Chronic atrial fibrillation, unspecified; E03.4 Atrophy of thyroid (acquired); I10 Essential (primary) hypertension; E78.5 Hyperlipidemia, unspecified; E11.9 Type 2 diabetes mellitus without complications; K21.9 Gastro-esophageal reflux disease without esophagitis; G47.30 Sleep apnea, unspecified; F17.210 Nicotine dependence, cigarettes, uncomplicated; Z88.0 Allergy status to penicillin; Z79.01 Long term (current) use of anticoagulants; Z79.899 Other long term (current) drug therapy; Z79.84 Long term (current) use of oral hypoglycemic drugs
CPT/HCPCS: 36415; 38222; 77012; 85007; 85027; 85045; 85055; 85610; 85730; 99156

== ENCOUNTER 2021-04-23 14:21 | Outpatient (RCR) | payer OTHER ==
[~2021-04-23 14:21] MED LIST changes: -AMIO200T6 PO; +AMIO200T65 PO; +CLIN-144 PO; -CLIN300C12 PO; +MONT-40 PO; -MONT10TA32 PO; +POTA-169 PO; +POTA-179 PO; -POTA20TA15 PO; -POTA20TA8 PO; -POTA99TA21 PO; +POTA99TA26 PO
[2021-04-23 14:30] LABS: BASOPHILS % (AUTO) 1 % (0-10); EOSINOPHILS # (AUTO) 0.2 10^3/uL (0.0-0.3); EOSINOPHILS % (AUTO) 3 % (0-10); HEMATOCRIT 50 % (40-54); LYMPHOCYTES # (AUTO) 1.7 10^3/uL (1.0-4.0); LYMPHOCYTES % (AUTO) 26 % (12-44); MEAN CORPUSCULAR HEMOGLOBIN 30 pg (25-34); MEAN CORPUSCULAR HGB CONC 34 g/dL (32-36); MEAN CORPUSCULAR VOLUME 89 fL (80-99); MEAN PLATELET VOLUME 11.5 fL (9.0-12.2); MONOCYTES # (AUTO) 0.6 10^3/uL (0.0-1.0); MONOCYTES % (AUTO) 10 % (0-12); NEUTROPHILS # (AUTO) 3.7 10^3/uL (1.8-7.8); NEUTROPHILS % (AUTO) 60 % (42-75); PLATELET COUNT 171 10^3/uL (130-400); WHITE BLOOD COUNT 6.3 10^3/uL (4.3-11.0)
== END 2021-07-22 | disposition home or self-care (01) ==
LOC: ONC 14:21
PROVIDERS: ATTEND Internal Medicine Hematology & Oncology
DX: D75.1 Secondary polycythemia (principal); I10 Essential (primary) hypertension; E78.5 Hyperlipidemia, unspecified; E11.9 Type 2 diabetes mellitus without complications; E66.9 Obesity, unspecified
CPT/HCPCS: 85025; G0463; 99213

== ENCOUNTER 2022-01-10 21:19 | Emergency (ER) | payer OTHER ==
[~2022-01-10] VITALS: Ht 177.8 cm; Wt 120.2 kg
[~2022-01-10 21:19] MED LIST changes: +OMEP20TA56 PO; -OMEP20TA7 PO
--- NOTE | 2022-01-10 21:26 | ED Fall/Injury ---
General Stated Complaint: L HIP PAIN Source: patient Exam Limitations: no limitations History of Present Illness Date Seen by Provider: Jan 10, 2022 Time Seen by Provider: 21:15 Initial Comments Patient to the ER by private conveyance from home with chief complaint just prior to arrival he lost his footing on the deck outside of a pool and slipped and fell down onto his left hip. He now cannot lift or move his left hip without tremendous pain especially anteriorly. No previous history of fracture of the hip. Dr. Jara did put a titanium eric in his right lower leg historically. He did not hit his head. He is on Xarelto with a history of atrial fibrillation and a pacemaker. He is followed by Dr. Newberry and Dr. Stephens. Last oral intake was at 1730, 4 hours prior to arrival Allergies and Home Medications Allergies Coded Allergies: Penicillins (Verified Allergy, Unknown, "LONG AGO DON'T REMEMBER REACTION", 09/17/06) Patient Home Medication List Home Medication List Reviewed: Yes Albuterol Sulfate (Ventolin Hfa) 18 Gm Hfa.aer.ad, 2 PUFF IH QID PRN for WHEEZING, (Reported) Entered as Reported by: TERESA MIJARES on 09/03/182099 Amiodarone HCl (Amiodarone HCl) 200 Mg Tablet, 200 MG PO BID Prescribed by: SARAH NEWBERRY on 10/30/20 09 Apixaban (Eliquis) 5 Mg Tablet, 5 MG PO BID, (Reported) Entered as Reported by: DIANA MAYO on 10/19/17 0820 Fluticasone/Salmeterol (Advair 250-50 Diskus) 1 Each Blst.w.dev, 1 PUFF IH BID, (Reported) Entered as Reported by: TRISTEN DE LA FUENTE on 10/29/20 110 Furosemide (Furosemide) 40 Mg Tablet, 40 MG PO DAILY, (Reported) Entered as Reported by: DIANA MAOY on 10/19/17 0820 Glipizide (Glipizide) 5 Mg Tablet, 5 MG PO DAILY, (Reported) Entered as Reported by: TRISTEN DE LA UFENTE on 10/29/20 1101 Metoprolol Tartrate (Metoprolol Tartrate) 100 Mg Tablet, 100 MG PO BID Prescribed by: SARAH NEWBERRY on 10/30/20 09 Multivitamin (Multivitamin) 1 Each Tablet, 1 EACH PO DAILY, (Reported) Entered as Reported by: TRISETN DE LA FUENTE on 10/29/20 110 Omeprazole (Omeprazole) 20 Mg Capsule.dr, 20 MG PO DAILY, (Reported) Entered as Reported by: DIANA MAYO on 06/03/171517 Potassium Chloride (Potassium Chloride) 20 Meq Tab.er.prt, 40 MEQ PO DAILY, (Reported) Entered as Reported by: DIANA MAYO on 10/19/17 0820 Sacubitril/Valsartan (Entresto 24 mg-26 mg Tablet) 1 Each Tablet, 1 EA PO BID, (Reported) Entered as Reported by: TRISTEN DE LA FUENTE on 10/29/20 110 Saxagliptin HCl (Onglyza) 5 Mg Tablet, 5 MG PO DAILY, (Reported) Entered as Reported by: TRISTEN DE LA FUENTE on 10/29/20 110 Thyroid,Pork (Harvey Thyroid) 120 Mg Tablet, 120 MG PO DAILY, (Reported) Entered as Reported by: DIANA MAYO on 06/03/171517 Review of Systems Review of Systems Constitutional: No chills, No diaphoresis Eyes: Denies Blindness, Denies Blurred Vision Ears, Nose, Mouth, Throat: denies ear pain, denies ear discharge Respiratory: No cough, No dyspnea on exertion Cardiovascular: No chest pain, No palpitations Gastrointestinal: No abdominal pain, No loss of appetite, No melena Genitourinary: No decreased output, No discharge All Other Systems Reviewed Negative Unless Noted: Yes Past Ictzrjw-Btueeq-Rqktqk Hx Patient Social History Tobacco Use?: No Alcohol Use?: Yes Alcohol type: Beer Immunizations Up To Date Tetanus Booster (TDap): Unknown PED Vaccines UTD: No Seasonal Allergies Seasonal Allergies: No Past Medical History Surgeries: Yes (thyroidectomy, INTRAMEDULLARY NAILING R DISTAL TIBIA WITH C- ARM) Defibrillator, Orthopedic Respiratory: Yes Asthma, Sleep Apnea Currently Using CPAP: Yes Currently Using BIPAP: No Cardiac: Yes (HX R ABLATION) Atrial Fibrillation, Hypertension Neurological: No Reproductive Disorders: No Sexually Transmitted Disease: No HIV/AIDS: No Genitourinary: No Gastrointestinal: Yes Gastroesophageal Reflux Musculoskeletal: No Endocrine: Yes Hypothyroidsim, Diabetes, Non-Insulin dep HEENT: No Loss of Vision: Denies Hearing Impairment: Denies Cancer: No Psychosocial: No Integumentary: No Blood Disorders: No Adverse Reaction/Blood Tranf: No Family Medical History CAD Under 55 Years Old, Hypertension Physical Exam Vital Signs Vital Signs - First Documented 01/10/22 21:19 Temp 36.2 Pulse 63 Resp 17 B/P (MAP) 117/85 (96) O2 Delivery Room Air Capillary Refill : Height, Weight, BMI Height: 5'10.00" Weight: 252lbs. 0.0oz. 114.047832oh; 34.76 BMI Method:Stated General Appearance: WD/WN, mild distress HEENT: PERRL/EOMI, pharynx normal Neck: full range of motion, supple, normal inspection Cardiovascular: normal peripheral pulses, regular rate, rhythm Respiratory: lungs clear, normal breath sounds, no respiratory distress, no accessory muscle use Peripheral Pulses: 2+ Dorsalis Pedis (R), 2+ Left Dors-Pedis (L) Gastrointestinal: normal bowel sounds, non tender, soft Extremities: normal inspection, normal capillary refill, other (Left hip tenderness over anterior inguinal region) Neurologic/Psychiatric: alert, normal mood/affect, oriented x 3 Skin: normal color, warm/dry Andre Coma Score Best Eye Response: (4) Open Spontaneously Best Verbal Response: (5) Oriented Best Motor Response: (6) Obeys Commands [place] Total: 15 Progress/Results/Core Measures Results/Orders Lab Results Laboratory Tests Test 01/10/22 21:20 01/10/22 21:26 Range/Units White Blood Count 10.6 4.3-11.0 10^3/uL Red Blood Count 5.54 H 4.30-5.52 10^6/uL Hemoglobin 15.9 13.3-17.7 g/dL Hematocrit 48 40-54 % Mean Corpuscular Volume 86 80-99 fL Mean Corpuscular Hemoglobin 29 25-34 pg Mean Corpuscular Hemoglobin Concent 33 32-36 g/dL Red Cell Distribution Width 13.4 10.0-14.5 % Platelet Count 216 130-400 10^3/uL Mean Platelet Volume 10.7 9.0-12.2 fL Immature Granulocyte % (Auto) 1 % Neutrophils (%) (Auto) 62 42-75 % Lymphocytes (%) (Auto) 26 12-44 % Monocytes (%) (Auto) 9 0-12 % Eosinophils (%) (Auto) 2 0-10 % Basophils (%) (Auto) 1 0-10 % Neutrophils # (Auto) 6.6 1.8-7.8 10^3/uL Lymphocytes # (Auto) 2.8 1.0-4.0 10^3/uL Monocytes # (Auto) 0.9 0.0-1.0 10^3/uL Eosinophils # (Auto) 0.2 0.0-0.3 10^3/uL Basophils # (Auto) 0.1 0.0-0.1 10^3/uL Immature Granulocyte # (Auto) 0.1 0.0-0.1 10^3/uL Sodium Level 138 135-145 MMOL/L Potassium Level 3.9 3.6-5.0 MMOL/L Chloride Level 102 98-107 MMOL/L Carbon Dioxide Level 20 L 21-32 MMOL/L Anion Gap 16 H 5-14 MMOL/L Blood Urea Nitrogen 10 7-18 MG/DL Creatinine 1.05 0.60-1.30 MG/DL Estimat Glomerular Filtration Rate 86 BUN/Creatinine Ratio 10 Glucose Level 109 H 70-105 MG/DL Calcium Level 8.5 8.5-10.1 MG/DL Corrected Calcium 8.6 8.5-10.1 MG/DL Total Bilirubin 0.9 0.1-1.0 MG/DL Aspartate Amino Transf (AST/SGOT) 61 H 5-34 U/L Alanine Aminotransferase (ALT/SGPT) 93 H 0-55 U/L Alkaline Phosphatase 100 40-136 U/L Total Protein 6.7 6.4-8.2 GM/DL Albumin 3.9 3.2-4.5 GM/DL Serum Alcohol 170 H <10 MG/DL Prothrombin Time 18.5 H 12.2-14.7 SEC INR Comment 1.5 H 0.8-1.4 Activated Partial Thromboplast Time 43 H 24-35 SEC My Orders Orders - TATE MALIN Ed Iv/Invasive Line Start (01/10/22 21:22) Cbc With Automated Diff (01/10/22 21:22) Comprehensive Metabolic Panel (01/10/22 21:22) Chest 1 View, Ap/Pa Only (01/10/22 21:22) Hip, Left, 2 Views (01/10/22 21:22) Ekg Tracing (01/10/22 21:22) Alcohol (01/10/22 21:22) Fentanyl Inj (Sublimaze Injection) (01/10/22 22:00) Protime With Inr (01/10/22 22:26) Partial Thromboplastin Time (01/10/22 22:26) Ed Iv/Invasive Line Start (01/10/22 22:35) Lactated Ringers (Lr 1000 Ml Iv Solution (01/10/22 22:45) Lactated Ringers (Lr 1000 Ml Iv Solution (01/10/22 22:34) Catheter(Urinary) Insert & Ass 03,15 (01/11/22 00:26) Lidocaine 2% (Urojet) (Xylocaine Urojet) (01/11/22 00:30) Medications Given in ED Current Medications Medications Dose Ordered Sig/Savage Route Start Time Stop Time Status Last Admin Dose Admin Fentanyl Citrate 50 mcg ONCE ONCE IVP 01/10/22 22:00 01/10/22 22:01 DC 01/10/22 21:58 50 MCG Lactated Ringer's 1,000 ml @ 0 mls/hr Q0M ONCE IV 01/10/22 22:45 01/10/22 22:46 DC 01/10/22 22:36 999 MLS/HR Vital Signs/I&O 01/10/22 21:19 Temp 36.2 Pulse 63 Resp 17 B/P (MAP) 117/85 (96) O2 Delivery Room Air Progress Progress Note : Time: 22:03 Progress Note Fentanyl 50 mcg. Discussed the case with Dr. Ness who states the patient needs a total hip and he does not do those. He would recommend in [place]. Initial ECG Impression Date: Jan 10, 2022 Initial ECG Impression Time: 21:48 Initial ECG Rate: 65 Initial ECG Intervals: QT (474) Initial ECG Impression: Nonspecific Changes Initial ECG Comparisson: Unchanged Comment Interventricular conduction delay and atrial pacemaker noted. No clinically relevant ST changes. Diagnostic Imaging Diagonstic Imaging: Xray Plain Films/CT/US/NM/MRI: chest [facility] [place] [place] NAME: KASEY ARAUJO [facility] REC#: [id number] PT STATUS: REG ER : 1970 PHYSICIAN: TATE MALIN MD ADMIT DATE: 01/10/22/ER Signed Date of Exam:01/10/22 CHEST 1 VIEW, AP/PA ONLY INDICATION: Left hip pain status post fall. EXAMINATION: Chest, 01/10/2022. COMPARISON: 10/30/2020. FINDINGS: 3 views of the chest. There is a left-sided pacemaker which appears stable. The heart is prominent. Pulmonary vasculature unremarkable. There is no infiltrate. No effusion. No pneumothorax. IMPRESSION: No acute cardiopulmonary process. Dictated by: Dictated on workstation # [id number] Dict: 01/10/222143 Trans: 01/10/222150 PJ [id number] Interpreted by: FRANK SIMMS MD Electronically signed by: FRANK SIMMS MD 01/10/222150 Reviewed: Reviewed by Me Diagonstic Imaging: Xray Plain Films/CT/US/NM/MRI: hip (l) Comments [facility] [place], [place] NAME: KASEY ARAUJO MED REC#: [id number] PT STATUS: REG ER : 1970 PHYSICIAN: TATE MALIN MD ADMIT DATE: 01/10/22/ER Signed Date of Exam:01/10/22 HIP, LEFT, 2 VIEWS EXAMINATION: Left hip unilateral 2 or 3 views (w/pelvis when done). HISTORY: Fall, hip pain. COMPARISON: None available. FINDINGS: There is a fracture through the mid femoral neck with mild displacement. No dislocation. Soft tissues are unremarkable. IMPRESSION: Left femoral neck fracture. Dictated by: Dictated on workstation # [id number] Dict: 01/10/222144 Trans: 01/10/222150 PJE [id number] Interpreted by: FRANK SIMMS MD Electronically signed by: FRANK SIMMS MD 01/10/222150 Reviewed: Reviewed by Me Departure Impression Primary Impression: Closed left hip fracture Qualified Codes: S72.002A - Fracture of unspecified part of neck of left femur, initial encounter for closed fracture Disposition: XFER SHT-TRM HOSP Condition: Stable Transfer Transfer Reason: Exceeds level of care Time Spoke to Accepting Phy: 00:00 Transfer Progress Notes 2220: Juliano is at Capacity. 2225: Allyson Toro: Called Triage. Will call back with Ortho Surgeon. 2235: Dr. Lowery agrees to consult if IM will accept. Triage will call back with IM. 0000: Discussed the case with Dr. Richey and he agrees to accept the patient with consult orthopedic surgery. 0024: Triage [facility] Room assignment. Transfer Facility: [facility] [place] Method of Transfer: EMS Departure-Patient Inst. Referrals: SARAH NEWBERRY MD (PCP/Family) Primary Care Physician TATE MALIN Jan 10, 2022 21:26
[2022-01-10 21:32] LABS: BASOPHILS # (AUTO) 0.1 10^3/uL (0.0-0.1); BASOPHILS % (AUTO) 1 % (0-10); EOSINOPHILS # (AUTO) 0.2 10^3/uL (0.0-0.3); EOSINOPHILS % (AUTO) 2 % (0-10); HEMATOCRIT 48 % (40-54); HEMOGLOBIN 15.9 g/dL (13.3-17.7); LYMPHOCYTES # (AUTO) 2.8 10^3/uL (1.0-4.0); LYMPHOCYTES % (AUTO) 26 % (12-44); MEAN CORPUSCULAR HEMOGLOBIN 29 pg (25-34); MEAN CORPUSCULAR HGB CONC 33 g/dL (32-36); MEAN CORPUSCULAR VOLUME 86 fL (80-99); MEAN PLATELET VOLUME 10.7 fL (9.0-12.2); MONOCYTES # (AUTO) 0.9 10^3/uL (0.0-1.0); MONOCYTES % (AUTO) 9 % (0-12); NEUTROPHILS # (AUTO) 6.6 10^3/uL (1.8-7.8); NEUTROPHILS % (AUTO) 62 % (42-75); PLATELET COUNT 216 10^3/uL (130-400); WHITE BLOOD COUNT 10.6 10^3/uL (4.3-11.0)
--- NOTE | 2022-01-10 21:50 | Diagnostic Imaging Report ---
INDICATION: Left hip pain status post fall. EXAMINATION: Chest, 01/10/2022. COMPARISON: 10/30/2020. FINDINGS: 3 views of the chest. There is a left-sided pacemaker which appears stable. The heart is prominent. Pulmonary vasculature unremarkable. There is no infiltrate. No effusion. No pneumothorax. IMPRESSION: No acute cardiopulmonary process. Dictated by: Dictated on workstation # [id number]
--- NOTE | 2022-01-10 21:50 | Diagnostic Imaging Report ---
EXAMINATION: Left hip unilateral 2 or 3 views (w/pelvis when done). HISTORY: Fall, hip pain. COMPARISON: None available. FINDINGS: There is a fracture through the mid femoral neck with mild displacement. No dislocation. Soft tissues are unremarkable. IMPRESSION: Left femoral neck fracture. Dictated by: Dictated on workstation # [id number]
[2022-01-10 21:57] LABS: ALBUMIN 3.9 GM/DL (3.2-4.5); POTASSIUM 3.9 MMOL/L (3.6-5.0)
[2022-01-10 21:58] LABS: CALCIUM 8.5 MG/DL (8.5-10.1)
[2022-01-10 22:00] LABS: TOTAL PROTEIN 6.7 GM/DL (6.4-8.2)
[2022-01-10] MEDS ORDERED: fentaNYL INJ 100 MCG/2 ML AMP IVP ONE (22:00)
[2022-01-10 22:01] LABS: BILIRUBIN,TOTAL 0.9 MG/DL (0.1-1.0)
[2022-01-10 22:03] LABS: CREATININE SERUM 1.05 MG/DL (0.60-1.30)
[2022-01-10] MEDS ORDERED: LACTATED RINGERS 1,000 ML IV ONE ×2 (22:34→22:45)
[2022-01-10 22:37] LABS: INR 1.5 (0.8-1.4); PROTHROMBIN TIME PATIENT 18.5 SEC (12.2-14.7)
[2022-01-11] MEDS ORDERED: LIDOCAINE UROJET 2% GEL 10 ML PKG TOP ONE (00:30)
[2022-01-11] MEDS ORDERED: fentaNYL INJ 100 MCG/2 ML AMP IVP ONE (00:30)
[2022-01-11 01:14] VITALS: BP 136/76
== END 2022-01-11 01:14 | disposition short-term general hospital (02) ==
LOC: ER 21:19
DX: S72.002A Fracture of unspecified part of neck of left femur, initial encounter for closed fracture (principal); G47.30 Sleep apnea, unspecified; I48.91 Unspecified atrial fibrillation; Z99.89 Dependence on other enabling machines and devices; Z79.01 Long term (current) use of anticoagulants; W01.0XXA Fall on same level from slipping, tripping and stumbling without subsequent striking against object, initial encounter
CPT/HCPCS: 71045; 73502; 80053; 85025; 85610; 85730; 93005; 99285; G0480; 36415; 80320

== ENCOUNTER → 2022-07-10 | Outpatient (CLI) | payer OTHER | LOC: CARD 14:00 | PROVIDERS: ATTEND Internal Medicine Cardiovascular Disease | DX: I51.7 Cardiomegaly (principal) | CPT/HCPCS: 93306 ==